=== PATIENT | female | born 1945 | race Caucasian/White ===

== ENCOUNTER 2023-03-26 11:39 | Inpatient (IN) | payer MEDICARE, OTHER, SELFPAY ==
[2023-03-26] VITALS (20 sets, daily range): BP systolic 78–133; BP diastolic 41–112; PULSE 60–99; RESP 15–18; TEMP 36.3–36.6; O2SAT 92–99; BMI 44.6; BMI 44.4; BMI 39.2
--- NOTE | 2023-03-26 11:55 | ED.RN ---
PATIENT WITH SLURRED SPEECH AND MILD APHASIA. PATIENT WITH HISTORY OF THIS DEFICIT FROM STROKE. PATIENTS LEFT EYE IS ALSO DROOPY, ABLE TO OPEN AND CLOSE IT. PATIENT STATES THAT HER EYE HAS BEEN LIKE THIS FOR 4-5 DAYS. PATIENT STATES SHE DOES NOT FEEL ANY DIFFERENT THEN NORMAL.
[2023-03-26 12:00] LABS: Bedside Glucose 65 mg/dL (74-106)
--- NOTE | 2023-03-26 12:20 | EDS_ITS ---
HPI History of Present Illness Chief Complaint: Neuro S/Sx [facility] Medical History (Updated 03/26/23 @ 12:39 by Stephanie Ham) Atrial fibrillation Depression Diabetes Dialysis patient GERD (gastroesophageal reflux disease) Kidney disease Stroke/cerebrovascular accident Allergy/AdvReac Type Severity Reaction Status Date / Time codeine Allergy Mild PT UNABLE Verified 03/26/23 11:47 TO RESPOND-NEEDS F/U hydrocodone Allergy Mild PT UNABLE Verified 03/26/23 11:47 TO RESPOND-NEEDS F/U tramadol Allergy Mild PT UNABLE Verified 03/26/23 11:47 TO RESPOND-NEEDS F/U Social History Smoking Status: Never smoker EXAM Physical Exam Const Vital Signs: 03/26/23 11:43 Temperature 97.4 F L Temperature Source Temporal Pulse Rate 94 Respiratory Rate 18 Blood Pressure 133/112 H Blood Pressure Mean 119 Pulse Ox 93 Oxygen Delivery Method Room Air MDM MDM MDM Narrative Medical decision making narrative: HISTORY OF PRESENT ILLNESS: 77-year-old female here with concern for left-sided eye closure, abnormal speech. Patient does not provide lab history given history of aphasia. Per the patient's dialysis center as patient was hemodialysis they noticed the symptoms. Unknown last known well. REVIEW OF SYSTEMS: Pertinent positives: Speech changes Pertinent negatives: Unknown secondary to patient's aphasia and difficulty with communication PHYSICAL EXAM: Nursing triage notes reviewed, Vital signs reviewed Constitutional: please see mdm HENT: MMM Eyes: Pupils equal round and reactive to light, Extraocular muscles intact Neck: No stridor, no JVD, full neck ROM Lungs: Diminished in left lower bazzi. No increased work of breathing, no conversational dyspnea, no accessory muscle use, no nasal flaring. No respiratory distress noted. Right chest dialysis catheter noted. Heart: No murmurs, No rubs and No gallops, 2+ distal pulses (radial, femoral, posterior tibial) in all extremities Abdomen: Soft, there is no tenderness, : No CVAT Extremities: LE edema noted Neuro: Alert, left-sided facial drooping, no obvious focal extremity deficits, intact sensation of the face in all 4 extremities, aphasia noted dysarthria noted NIH of 5 Skin: No rash or lesions noted MEDICAL DECISION MAKING: Chief Complaint: Neuro symptoms External records reviewed: Last echocardiogram with EF 55% Factors affecting care: CVA, type 2 diabetes, aphasia, CKD, ESRD, dialysis Saturday on Eliquis secondary to A-fib History obtained from others: EMS Consults: Internal Medicine ALL IMAGES (IF OBTAINED) HAVE BEEN PERSONALLY REVIEWED AND INTERPRETED BY MYSELF. Chest x-ray was personally reviewed myself. Shows evidence of left-sided infiltrate/effusion. [facility] Narrative: Patient was initially hemodynamically stable, afebrile and nontoxic-appearing. Exam with NIH of 5. Is unclear of the last known well in addition to the patient on . TNKase not indicated at this time. Given unknown last known well thrombectomy is not indicated at this time. Did obtain a CT scan of the patient's head as well as a CT of the head and neck in addition to this I obtained labs and EKG. CTA of the head and neck showed no acute abnormalities. Labs showed leukocytosis, baseline improved anemia, no severe electrolyte abnormalities, there is chronic kidney disease noticed improved from prior. [id number] glucose was low gave D50.Gave IV antibiotics to treat pneumonia. Patient is admitted to the floor in stable condition. I considered the following differential diagnosis: ICH, CVA, hypoglycemia, seizure Given concern for new symptoms NIH of 5 we will admit the patient to undergo confirmatory MRI. The patient and/or family, caregivers express understanding. The patient and/or family, caregivers agrees with the plan. Shared decision making: I will have a discussion with the patient and or visitors regarding risk/benefits of further testing or admission. They will be made aware of of the risk/benefits inherent in this decision they will be given the opportunity to voice understanding. Total critical care time today provided was at least 0 minutes. This excludes separately billable procedures. Critical care time (if documented) is secondary to the patient having high probability of clinically significant/life threatening deterioration in the patient's condition which required my urgent intervention. Impression: 1. Aphasia 2. History of ESRD 3. History of CVA 4. Left lower lobe pneumonia 5. Leukocytosis Dispo: [facility] Lab Data Labs: Laboratory Results - last 24 hr 03/26/23 11:43 POC Glucose 65 L Discharge Plan Triage Chief Complaint: Neuro S/Sx ED Provider: Vinay Keller Dx/Rx/DC Orders Primary Care Provider: Liudmila Kuhn Referrals: Liudmila Kuhn MD [Primary Care Provider] - Disposition Disposition: Acute Care Hospital [facility]
[2023-03-26] MEDS: Dextrose 50%-Water 25 GM/50 ML DISP.SYRIN IV (12:57)
--- NOTE | 2023-03-26 13:04 | EKG12_ITS ---
Test Reason : STROKE SYMP Blood Pressure : / mmHG Vent. Rate : 089 BPM Atrial Rate : 089 BPM P-R Int : 212 ms QRS Dur : 092 ms QT Int : 388 ms P-R-T Axes : 035 063 024 degrees QTc Int : 472 ms Sinus rhythm with 1st degree A-V block with Premature atrial complexes in a pattern of bigeminy Low voltage QRS Nonspecific T wave abnormality Prolonged QT Abnormal ECG Confirmed by TITI OSPINA, NGHIA ([id number]), editorial manager DEMARCO LOVE ([id number]) on 04/02/2023 10:09:42 AM Referred By: LA Confirmed By:ALICE WALLS MD
--- NOTE | 2023-03-26 13:05 | CT_ITS ---
STUDY: CTA HEAD AND NECK WITH CONTRAST REASON FOR EXAM: Female, 77 years old. Neuro deficit, acute, stroke suspected RADIATION DOSAGE (If Supplied By Facility): CTDIvol = ( 29.56 ) mGy, DLP = ( 2313.95 ) mGycm TECHNIQUE: CT angiography was performed with a multi-detector CT scanner. Data acquisition was obtained from the skull base through the vertex following intravenous administration of IV 100mL [id number]-[id number]. MIP images were reconstructed from the axial data set. Post-processing of the angiographic images was performed, with multiplanar reformation and 3D reconstruction. Individualized dose optimization techniques were used for this CT. COMPARISON: No relevant priors. FINDINGS: Normal bilateral petrous carotid arteries. There is calcified plaque formation of the right cavernous carotid artery, without a cross-sectional luminal stenosis. There is calcified plaque formation of the left cavernous carotid artery, without a cross-sectional luminal stenosis. Normal right A1 segments of the anterior cerebral artery. Normal left A1 segments of the anterior cerebral artery. Normal intact anterior communicating artery (ACOM). Normal bilateral A2 segments of the anterior cerebral arteries. Normal right M1 and M2 segments of the middle cerebral arteries, with a normal M1 bifurcation. Normal left M1 and M2 segments of the middle cerebral arteries, with a normal M1 bifurcation. 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 Normal left posterior communicating artery (PCOM). Normal bilateral vertebral arteries. Normal basilar artery with a normal basilar bifurcation. The visualized bilateral superior cerebellar (SCA) arteries are normal. Normal bilateral P1, P2 and visualized P3 segments of the posterior cerebral arteries. There is no demonstrated aneurysm of the [place]. Cerebral atrophy. AORTIC ARCH: There is atherosclerotic calcific plaque formation of the aortic arch and great vessels arising from the aortic arch, without a hemodynamically significant stenosis. There is a normal origin of the brachiocephalic, left common carotid, and left subclavian arteries. Atherosclerotic calcific plaques at the origin of the right brachiocephalic as well as the left subclavian arteries. RIGHT CAROTID ARTERIES: Normal right common carotid artery (CCA). Normal right common carotid bulb. Normal origin of the right internal carotid (ICA) artery without a hemodynamically significant stenosis. Normal visualized cervical portion of the right internal carotid artery. Normal origin of the right external carotid artery (ECA). LEFT CAROTID ARTERIES: Normal left common carotid artery (CCA). Normal left common carotid bulb. There is mild atherosclerotic plaque formation of the origin of the left internal carotid artery with less than 50% cross sectional diameter stenosis. Normal visualized cervical portion of the left internal carotid artery. Normal origin of the left external carotid artery (ECA). VERTEBRAL ARTERIES: There is enhancement within the bilateral vertebral arteries with a small right vertebral artery, and a dominant left vertebral artery. Small bilateral pleural effusions with atelectasis at the lung bases. CT/STROKE CTA Head AND Neck W/Con IMPRESSION: Mild degree of calcific plaques in the proximal portions of both right and left internal carotid arteries. This is slightly more prominent on the left side. N.B. : The above Results were Read Back by Baltazar Brito MD to Vinay Michaelrus and understanding confirmed on 03/26/2023 14:22:36 (ET). Electronically Signed: Baltazar Brito MD at 14:23 EDT ,
[2023-03-26 13:38] LABS: Absolute Lymphocyte Count 2.73 X10^3/uL (0.83-4.51); Basophil# 0.03 X10^3/uL; Basophil% 0.2 % (0-1); Eosinophil# 0.12 X10^3/uL; Eosinophils% 0.8 % (0-5); Hematocrit 27.4 % (37-47); Hemoglobin 8.4 g/dL (12.0-15.0); Lymphocyte # 2.73 X10^3/ul (0.83-4.51); Lymphocyte % 18.8 % (19-41); Mean Corp Hgb Conc 30.7 g/dL (32-36); Mean Corpuscular Hgb 30.9 pg (27.0-32.0); Mean Corpuscular Volume 100.7 fL (81-99); Mean Platelet Vol. 10.1 fl (6.2-12.0); Monocyte% 10.3 % (0-10); NRBC Flagged by Analyzer 0 % (0-5); Neutrophil # 10.03 X10^3/uL (2.7-7.7); Neutrophil % 69.2 % (47-70); Platelet Count 122 K/mm3 (150-450); RBC Distribution Width CV 15.7 % (11.6-14.6); RBC Distribution Width SD 57.4 fl (35.1-43.9); Red Blood Count 2.72 M/mm3 (4.2-5.4); White Blood Count 14.5 K/mm3 (4.4-11.0)
[2023-03-26 13:49] LABS: Anion Gap 13 (5-15); BUN 9 mg/dL (7-18); BUN/Creat Ratio 4.9 RATIO (10-20); Calcium,Total 8.5 mg/dL (8.5-10.1); Chloride 96 mmol/L (98-107); Creatinine, Serum 1.85 mg/dL (0.55-1.02); EST Glomerular Filtration Rate 28 mL/min (>60); Est Glom Filt Rate - Afr Amer 34 mL/min (>60); Estimated Creatinine Clearance 21.99 ml/min; Glucose 90 mg/dL (74-106); Potassium 3.6 mmol/L (3.5-5.1); Sodium Level 134 mmol/L (136-145); Troponin-I HS 8 pg/mL (3.0-54.0)
--- NOTE | 2023-03-26 13:57 | RAD_ITS ---
STUDY: X-RAY CHEST REASON FOR EXAM: Female, 77 years old. Neuro deficit, acute, stroke suspected TECHNIQUE: Single AP portable view of the chest. COMPARISON: None. FINDINGS: The right-sided double lumen catheter seen with the tip in the right atrium. EKG electrodes are seen. Small left pleural effusion with left basilar infiltrate and/or atelectasis. Normal size heart. Soft tissue density in the region of the aortopulmonary window. Correlation with a CT scan is recommended. Normal visualized pulmonary arteries. There is atherosclerotic calcification of the aortic arch with tortuosity. There are diffuse degenerative changes of the visualized thoracic spine. Normal visualized ribs, clavicles, and shoulders. There is no demonstrated abnormality of the visualized soft tissue structures of the upper abdomen. RAD/Chest 1 View IMPRESSION: Small left pleural effusion with a left basilar infiltrate and/or atelectasis. Soft tissue density in the region of the aortopulmonary window. Correlation with CT scan is recommended. Electronically Signed: Baltazar Brito MD at 14:25 EDT ,
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
[2023-03-26 15:04] LABS: Bedside Glucose 139 mg/dL (74-106)
[2023-03-26] MEDS: Ceftriaxone 1 GM/50 ML BAG IV (15:18)
[2023-03-26] MEDS: Azithromycin 500 MG in Dextrose 5%-Water (250mL Bag) 250 ML 250 MG IV (16:27)
[2023-03-26 17:54] LABS: Bedside Glucose 144 mg/dL (74-106)
--- NOTE | 2023-03-26 18:30 | ED.RN ---
PATIENT CHANGED AND REPOSITIONED. PATIENT WITH OPEN WOUND TO LEFT MID BACK IN SKIN FOLD AND OPEN AREA TO RIGHT BUTTOCK.
--- NOTE | 2023-03-26 19:40 | ECHOD_ITS ---
Reason For Study: TIA/CVA Procedure This was a 2D Doppler, Color Flow transthoracic echocardiogram. Technically difficult study due to patient position. Patient scanned sitting straight up. Definity and bubble deferred due to poor apical windows. Exam performed portable in patient room. Left Ventricle Normal LV size. The estimated ejection fraction is 70 %. Unable to assess diastolic dysfunction. No regional wall motion abnormalities noted. Right Ventricle Normal RV size. Normal systolic function. Atria Normal left atrium. Normal right atrium. No doppler evidence for ASD. Mitral Valve There is moderate to severe mitral annular calcification. There is no mitral valve stenosis. Trivial mitral valve insufficiency. Tricuspid Valve There is no tricuspid stenosis. Trivial tricuspid valve insufficiency. Unable to estimate RV systolic pressure due to insufficient tricuspid regurgitant envelope. Aortic Valve Trisinus/trileaflet aortic valve. There is no aortic stenosis. No aortic valve insufficiency. Pulmonic Valve There is no pulmonic valvular stenosis. No pulmonic valve insufficiency. Great Vessels Normal aortic root. Pericardium/Pleural No pericardial effusion. MMode/2D Measurements & Calculations Ao root diam: 3.2 cm LVAd ap4: 15.1 cm2 SV(MOD-sp4): 22.0 ml LVLd ap4: 5.8 cm EDV(MOD-sp4): 31.3 ml EDV(sp4-el): 33.2 ml LVAs ap4: 7.5 cm2 LVLs ap4: 5.0 cm ESV(MOD-sp4): 9.3 ml ESV(sp4-el): 9.6 ml EF(MOD-sp4): 70.4 % EF(sp4-el): 71.0 % SV(sp4-el): 23.6 ml LA dimension(2D): 2.5 cm TAPSE: 1.0 cm Time Measurements MV dec time: 0.09 sec Doppler Measurements & Calculations MV E max sarthak: 69.4 cm/sec Lat Peak E' Sarthak: 6.6 cm/sec Med Peak E' Sarthak: 9.0 cm/sec MV A max sarthak: 130.7 cm/sec E/E' lat: 10.5 E/E' med: 7.7 MV E/A: 0.53 MV V2 max: 131.6 cm/sec MV dec slope: 763.9 cm/sec2 Ao V2 max: 108.6 cm/sec MV max P.0 mmHg Ao max P.7 mmHg MV V2 mean: 68.0 cm/sec Ao V2 mean: 69.5 cm/sec MV mean P.5 mmHg Ao mean P.2 mmHg MV V2 VTI: 24.8 cm Ao V2 VTI: 19.8 cm AV (velocity ratio): 0.97 LV V1 max: 94.9 cm/sec PA V2 max: 112.1 cm/sec LV V1 max P.6 mmHg PA V2 mean: 54.1 cm/sec LV V1 mean P.2 mmHg LV V1 mean: 70.2 cm/sec LV V1 VTI: 19.3 cm ECHO/Echo Complete Interpretation Summary The estimated ejection fraction is 70 %. Unable to assess diastolic dysfunction. Trivial mitral valve insufficiency. Ordering Physician: Melissa Coffey Referring Physician: Liudmila Kuhn M.D. Performed By: Elen Munroe RCS
--- NOTE | 2023-03-26 19:40 | CDU_ITS ---
Reason For Study: CVA Rt. Velocities/BP Lt. Velocities/BP Prox CCA 71.1/14.5 cm/sec. Prox CCA 65.2/10.2 cm/sec. Mid CCA 73/16.3 cm/sec. Mid CCA 65.2/10.2 cm/sec. Dist CCA 54.1/13.5 cm/sec. Dist CCA 63/11.3 cm/sec. Prox ICA 50.4/12.6 cm/sec. Prox ICA 42.5/8.9 cm/sec. Mid ICA 80.9/27.8 cm/sec. Mid ICA 79.7/22.2 cm/sec. Dist ICA 101.7/25 cm/sec. Dist ICA 77.8/18.8 cm/sec. Rt. ICA/CCA = 1.43. Lt. ICA/CCA = 1.22. Prox ECA 54.4/1.8 cm/sec. Prox ECA 64.1/6.9 cm/sec. Rt. Vert. 48.9/10.2 cm/sec. Lt. Vert. 73.6/13.3 cm/sec. Right Extracranial There is intimal thickening but no significant atherosclerotic plaque noted in the right common carotid artery. There is intimal thickening but no significant atherosclerotic plaque noted in the right internal carotid artery. The right internal carotid artery is very tortuous. There is intimal thickening but no significant atherosclerotic plaque noted in the right external carotid artery. The right external carotid artery is not well visualized. Antegrade flow is noted in the right vertebral artery. Left Extracranial There is homogeneous, smooth atherosclerotic plaque noted in the left common carotid artery. There is heterogeneous, irregular atherosclerotic plaque noted in the left internal carotid artery. There is intimal thickening but no significant atherosclerotic plaque noted in the left external carotid artery. The left external carotid artery is not well visualized. Antegrade flow is noted in the left vertebral artery. Procedure Carotid Duplex [id number]. This is a Carotid Duplex examination using B-mode, color flow and specral Doppler. Exam performed in department. VL/Carotid Duplex Ultrasound Interpretation Summary Normal right extracranial internal carotid. Mild (<50%) stenosis left extracranial internal carotid. Patent and antegrade vertebrals bilaterally. Ordering Physician: Melissa Coffey Referring Physician: Liudmila Kuhn M.D. Performed By: Nena Julian RVT
[2023-03-26 20:25] LABS: Magnesium 2.1 mg/dL (1.6-2.6)
[2023-03-26] MEDS: Gabapentin 100 MG Capsule 200 MG PO (21:38)
[2023-03-26] MEDS: MELATONIN 3 MG TABLET 9 MG PO (21:38)
[2023-03-26] MEDS: Midodrine HCl 5 MG Tablet 10 MG PO (21:38)
[2023-03-26] MEDS: Atorvastatin Calcium 40 MG Tablet PO (21:38)
[2023-03-26] MEDS: APIXABAN 5 MG TABLET PO (21:38)
[2023-03-26] MEDS: Menthol/Lanolin/Calamine/Znox 113 GM Tube 1 APPLIC TOPICAL (21:39)
[2023-03-26] MEDS: Acetaminophen 325 MG Tablet 650 MG PO (21:47)
[2023-03-26 22:15] LABS: Bedside Glucose 143 mg/dL (74-106)
[2023-03-27] VITALS (7 sets, daily range): BP systolic 90–118; BP diastolic 51–78; PULSE 80–87; RESP 16–18; TEMP 36.3–36.6; O2SAT 2–98; BMI 39.2; BMI 39.1
--- NOTE | 2023-03-27 02:36 | NURSING ---
only has voided 25ml this shift, bladder scanned for 200ml.
[2023-03-27 02:38] LABS: Bedside Glucose 138 mg/dL (74-106)
--- NOTE | 2023-03-27 05:55 | RAD_ITS ---
INDICATION: Dyspnea, cough EXAMINATION/TECHNIQUE: X-RAY - XR Chest 1 View COMPARISON: March 26, 2023. FINDINGS: LINES/DEVICES: Unchanged dual-lumen right internal jugular catheter.. LUNGS: Small layering left effusion, decreased from prior exam. No right effusion. No new consolidation. No pneumothorax. MEDIASTINUM AND CARDIOVASCULAR STRUCTURES: Cardiac silhouette not enlarged. BONES AND SOFT TISSUES: Unremarkable. RAD/Chest 1 View (Portable) IMPRESSION: Small layering left effusion which is decreased from prior exam. Electronically Signed: Prosper Ren MD at 4:28 EDT ,
--- NOTE | 2023-03-27 06:00 | MRI_ITS ---
EXAM: MR HEAD WITHOUT INTRAVENOUS CONTRAST CLINICAL INDICATION: CVA, L FACIAL DROOP TECHNIQUE: Multiplanar and multisequence MR images of the brain were obtained without intravenous contrast. COMPARISON: CTA head and neck with contrast 03/26/2023. FINDINGS: BRAIN AND EXTRA-AXIAL SPACES: The cluster of 3 small diffusion restrictions in the left mid periventricular white matter and in the subcortical white matter of the left central lobe are also visible on the T2 FLAIR sequence. They are subacute ischemic infarcts. No intra- or extra-axial hemorrhage. No intracranial mass or mass effect. Posterior fossa structures are unremarkable. No hydrocephalus. Basal cisterns are patent. SELLA: Unremarkable. Normal sella turcica, pituitary gland, infundibular stalk, optic chiasm and hypothalamus. AUDITORY SYSTEM: Unremarkable. The internal auditory canals are patent. BONES/JOINTS: Unremarkable. No discrete lytic or blastic abnormalities. SINUSES: Unremarkable as visualized. Clear. MASTOID AIR CELLS: Unremarkable as visualized. Clear. ORBITS: Unremarkable as visualized. Both globes, extraocular muscles, optic nerves and retrobulbar fat appear unremarkable. VASCULATURE: Unremarkable as visualized. Normal flow voids in the major intracranial circulation. MRI/Brain without Contrast IMPRESSION: A cluster of 3 subacute lacunar ischemic infarcts in the left periventricular white matter and in the subcortical white matter of the left central lobe. These are suspicious for microembolic infarcts that are probably cardioembolic in source/origin due to the negative CTA head and neck. N.B. : The above Results were Read Back by Yash Brewer MD to Yash Barahona RN, and understanding confirmed on 03/27/2023 10:20:53 (ET). Electronically Signed: Yash Brewer MD at 10:06 EDT ,
[2023-03-27] MEDS: Miconazole Nitrate 43 GM Bottle 1 APPLIC TOPICAL ×3 (06:17→22:48)
--- NOTE | 2023-03-27 06:19 | NURSING ---
bladder scanned for 250ml
[2023-03-27 06:25] LABS: Bedside Glucose 115 mg/dL (74-106)
[2023-03-27 06:52] LABS: Absolute Lymphocyte Count 2.54 X10^3/uL (0.83-4.51); Basophil# 0.05 X10^3/uL; Basophil% 0.4 % (0-1); Eosinophils% 1.7 % (0-5); Hematocrit 25.8 % (37-47); Lymphocyte # 2.54 X10^3/ul (0.83-4.51); Lymphocyte % 21.4 % (19-41); Mean Corpuscular Hgb 30.8 pg (27.0-32.0); Mean Corpuscular Volume 99.2 fL (81-99); Mean Platelet Vol. 9.6 fl (6.2-12.0); Monocyte# 1.01 X10^3/uL; Monocyte% 8.5 % (0-10); NRBC Flagged by Analyzer 0 % (0-5); Neutrophil # 7.95 X10^3/uL (2.7-7.7); Neutrophil % 66.9 % (47-70); Platelet Count 113 K/mm3 (150-450); RBC Distribution Width CV 15.3 % (11.6-14.6); RBC Distribution Width SD 54.8 fl (35.1-43.9); White Blood Count 11.9 K/mm3 (4.4-11.0)
[2023-03-27 07:42] LABS: ALB/GLOB Ratio 0.3 RATIO (0.9-2.4); AST(SGOT) 19 U/L (15-37); Alanine Aminotransfer ALT/SGPT 18 U/L (13-56); Albumin, Serum 1.2 g/dL (3.2-5.0); Alkaline Phosphatase 184 U/L (45-117); Anion Gap 5 (5-15); BUN 12 mg/dL (7-18); BUN/Creat Ratio 5.7 RATIO (10-20); Chloride 96 mmol/L (98-107); Cholesterol 83 mg/dL (200); Creatinine, Serum 2.09 mg/dL (0.55-1.02); EST Glomerular Filtration Rate 24 mL/min (>60); Est Glom Filt Rate - Afr Amer 30 mL/min (>60); Estimated Creatinine Clearance 17.83 ml/min; Globulin 3.8 g/dL (2.2-4.2); Glucose 120 mg/dL (74-106); High Density Lipoprotein 12 mg/dL; Potassium 3.2 mmol/L (3.5-5.1); Sodium Level 133 mmol/L (136-145); Thyroid Stim Hormone (TSH) 2.13 uIU/mL (0.358-3.74); Triglycerides 125 mg/dL; Very Low Density Lipoprotein 25 mg/dL (5-40)
--- NOTE | 2023-03-27 08:34 | PCM.PN.HOSP ---
Reason for Visit Reason for Visit: Diagnoses Cerebral infarction, unspecified (03/26/23) Subjective Subjective Patient is a 77-year-old gentleman with history of end-stage renal disease on dialysis was found to have slurred speech and left-sided facial droop was undergoing dialysis was sent to the ED admitted to monitored bed for subsequent management Objective Data Objective Data Vital Signs: Vital Signs Temp Pulse Resp BP Pulse Ox O2 Del Method O2 Flow Rate 97.8 F 80 18 118/57 L 92 Room Air 1 03/27/23 06:00 03/27/23 06:00 03/27/23 06:00 03/27/23 06:00 03/27/23 07:32 03/27/23 07:32 03/26/23 13:45 Oxygen Flow Rate (L/min) 1 Oxygen Delivery Method Room Air Weight: 97 kg Body Mass Index (BMI) 39.1 Intake & Output: Intake and Output for Last 24 Hours 03/25/23 03/26/23 03/27/23 23:59 23:59 23:59 Intake Total 305 / 305 Output Total 0 / 0 0 / 0 Balance 305 / 305 0 / 0 Lab / Micro Data 03/27/23 05:47 03/27/23 05:47 Labs: Laboratory Results - last 24 hr 03/26/23 11:43: POC Glucose 65 L 03/26/23 12:03: WBC 14.5 H, RBC 2.72 L, Hgb 8.4 L, Hct 27.4 L, MCV 100.7 H, MCH 30.9, MCHC 30.7 L, RDW Std Deviation 57.4 H, RDW Coeff of Nathaniel 15.7 H, Plt Count 122 L, MPV 10.1, Immature Gran % (Auto) 0.700, Neut % (Auto) 69.2, Lymph % (Auto) 18.8 L, Campbell % (Auto) 10.3 H, Eos % (Auto) 0.8, Baso % (Auto) 0.2, Absolute Neuts (auto) 10.0 H, Absolute Lymphs (auto) 2.73, Nucleated RBC % 0, PT Cancelled, INR Cancelled, APTT Cancelled, Sodium 134 L, Potassium 3.6, Chloride 96 L, Carbon Dioxide 25.0, Anion Gap 13, BUN 9, Creatinine 1.85 H, Estim Creat Clear Calc 21.99, Est GFR (MDRD) Af Amer 34 L, Est GFR (MDRD) Non-Af 28 L, BUN/Creatinine Ratio 4.9 L, Glucose 90, Calcium 8.5, Magnesium 2.1, Troponin I High Sens 8 03/26/23 14:33: POC Glucose 139 H 03/26/23 17:36: POC Glucose 144 H 03/26/23 21:36: POC Glucose 143 H 03/27/23 02:12: POC Glucose 138 H 03/27/23 05:47: WBC 11.9 H, RBC 2.60 L, Hgb 8.0 L, Hct 25.8 L, MCV 99.2 H, MCH 30.8, MCHC 31.0 L, RDW Std Deviation 54.8 H, RDW Coeff of Nathaniel 15.3 H, Plt Count 113 L, MPV 9.6, Immature Gran % (Auto) 1.100 H, Neut % (Auto) 66.9, Lymph % (Auto) 21.4, Campbell % (Auto) 8.5, Eos % (Auto) 1.7, Baso % (Auto) 0.4, Absolute Neuts (auto) 8.0 H, Absolute Lymphs (auto) 2.54, Nucleated RBC % 0, Sodium 133 L, Potassium 3.2 L, Chloride 96 L, Carbon Dioxide 32.0, Anion Gap 5, BUN 12, Creatinine 2.09 H, Estim Creat Clear Calc 17.83, Est GFR (MDRD) Af Amer 30 L, Est GFR (MDRD) Non-Af 24 L, BUN/Creatinine Ratio 5.7 L, Glucose 120 H, Calcium 8.0 L, Total Bilirubin 0.30, AST 19, ALT 18, Alkaline Phosphatase 184 H, Total Protein 5.0 L, Albumin 1.2 L, Globulin 3.8, Albumin/Globulin Ratio 0.3 L, Triglycerides 125, Cholesterol 83, LDL Cholesterol 46, VLDL Cholesterol 25, HDL Cholesterol 12 L, TSH 2.13 03/27/23 06:07: POC Glucose 115 H Radiography Diagnostic Testing: Radiology Impression Head/Neck CTA 03/26/23 13:05 IMPRESSION: Mild degree of calcific plaques in the proximal portions of both right and left internal carotid arteries. This is slightly more prominent on the left side. N.B. : The above Results were Read Back by Baltazar Brito MD to Vinay Keller and understanding confirmed on 03/26/2023 14:22:36 (ET). Electronically Signed: Baltazar Brito MD at 14:23 EDT , ADDENDUM: 03/26/23 1430 IMPRESSION: Mild degree of calcific plaques in the proximal portions of both right and left internal carotid arteries. This is slightly more prominent on the left side. N.B. : The above Results were Read Back by Baltazar Brito MD to Vinay Keller and understanding confirmed on 03/26/2023 14:22:36 (ET). Electronically Signed: Baltazar Brito MD at 14:23 EDT , Chest X-Ray 03/26/23 13:57 IMPRESSION: Small left pleural effusion with a left basilar infiltrate and/or atelectasis. Soft tissue density in the region of the aortopulmonary window. Correlation with CT scan is recommended. Electronically Signed: Baltazar Brito MD at 14:25 EDT , Chest X-Ray 03/27/23 05:55 IMPRESSION: Small layering left effusion which is decreased from prior exam. Electronically Signed: Prosper Ren MD at 4:28 EDT , Physical Exam Narrative GENERAL: cooperative HEENT: Atraumatic; normocephalic EYES; Anicteric, Normal Conjunctiva NECK; supple, normal thyroid, RESPIRATORY: Diminished to auscultation CARDIOVASCULAR: Regular S1 S2, GI: soft, normoactive bowel sounds, : No Renal angle tenderness; EXTREMITIES: No edema, no clubbing, MUSCULOSKELETAL: no muscle wasting NEURO: Awake; no lateralizing signs. SKIN: No Rash PSYCH; Flat affect Assessment & Plan Assessment/Plan (1) CVA (cerebral vascular accident): QUALIFIERS: CVA mechanism: embolism Precerebral and cerebral artery: unspecified precerebral artery Qualified Code(s): I63.10 - Cerebral infarction due to embolism of unspecified precerebral artery PLAN: Plan Patient is a 77-year-old gentleman with history of end-stage renal disease on dialysis was found to have slurred speech and left-sided facial droop was undergoing dialysis was sent to the ED admitted to monitored bed for subsequent management 1. Suspected CVA ? Patient presented with left-sided facial droop, dysarthria. Admitted to monitored bed stroke protocol initiated patient to undergo subsequent evaluation with MRI. Patient's MRI did demonstrate A cluster of 3 subacute lacunar ischemic infarcts in the left periventricular white matter and in the subcortical white matter of the left central lobe. These are suspicious for microembolic infarcts that are probably cardioembolic in source/origin due to the negative CTA head and neck.. Patient placed on dual antiplatelet therapy in addition to statin therapy with consultation placed to neurology 2. End-stage renal disease ? On hemodialysis, nephrology consulted for dialysis orders 3. Diabetes mellitus type II - Placed on long acting insulin, Accu-Cheks a.c. and at bedtime and covered with sliding scale insulin 4. Paroxysmal atrial fibrillation ? Probably accounting for patient's acute CVA rate controlled patient is on systemic anticoagulation with apixaban continued 5. Depression with anxiety ? Patient is on sertraline continue 6. Hypertension - Blood pressure controlled, home medications continued with dose adjustment as needed 7. GERD ? On PPI 9. Dyslipidemia -Patient is on statin therapy, continued at home dose 10. Class II obesity with BMI of 39 ? Complicating care weight loss advised 11. DVT prophylaxis ? On apixaban Time spent in the patient's overall evaluation,decision-making process, review of diagnostic data, adjustment of management, discussion with other providers, nursing nursing and ancillary staff involved in patient's care documentation, 50 Minutes Charges/Coding Visit Charges Inpatient E&M: [address] [place] [id number]
[2023-03-27 08:55] LABS: Procalcitonin 0.45 ng/mL (0.00-0.09)
[2023-03-27 09:32] LABS: Hemoglobin A1c 4.9 % (3.8-5.6)
[2023-03-27] MEDS: Sertraline 50 MG Tablet 25 MG PO (10:19)
[2023-03-27] MEDS: Midodrine HCl 5 MG Tablet 10 MG PO ×4 (10:20→22:50)
[2023-03-27] MEDS: APIXABAN 5 MG TABLET PO ×2 (10:20→22:48)
[2023-03-27] MEDS: Pantoprazole Sodium 40 MG Tablet PO (10:20)
[2023-03-27] MEDS: Docusate Sodium 100 MG Capsule PO ×2 (10:20→22:48)
[2023-03-27] MEDS: Aspirin E.C. 81 MG Tablet PO (10:20)
[2023-03-27] MEDS: Menthol/Lanolin/Calamine/Znox 113 GM Tube 1 APPLIC TOPICAL ×4 (10:24→22:48)
[2023-03-27] MEDS: Ceftriaxone 1 GM/50 ML BAG IV (10:37)
--- NOTE | 2023-03-27 11:27 | PCM.CONS.R ---
Assessment & Plan Assessment/Plan (1) ESRD (end stage renal disease) on dialysis: (2) Anemia in chronic kidney disease: PLAN: Plan This is a pleasant 77-year-old female with past medical history significant for diabetes mellitus type 2, A-fib, past history of CVA with aphasia, coronary artery disease status post stent, ESRD on hemodialysis who was brought to the emergency room for evaluation of left-sided facial droop and mild to moderate aphasia concerning for CVA. Work-up in the emergency room included CTA head/neck: no acute findings, mild degree calcific plaques right and left internal carotid arteries. Chest x-ray questionable for possible left lower lobe pneumonia and also pleural effusions. Patient was admitted for further evaluation and treatment. Nephrology consulted as patient has history of end-stage renal disease and is on chronic hemodialysis. Patient receives dialysis at [facility] on a Saturday, Saturday, , Saturday schedule. Patient did undergo full hemodialysis session on Saturday and partial treatment of around 2 hours yesterday. There is no acute indication for NEPHROLOGY NURSE today; volume status, potassium and acid-base acceptable. We will evaluate for dialysis needs tomorrow. Patient has history of anemia of chronic disease, will monitor hemoglobin trends. Patient does receive NATALI and iron at dialysis. Blood pressures are on low side but acceptable, continue on midodrine. Patient is on azithromycin for probable pneumonia. Further orders forthcoming as hospitalization evolves, thank you for allowing us to participate in the care of Ms. Ordonez. HPI Consult Data Date of Consult: 03/27/23 HPI Narrative HPI Narrative: APRIL ORDONEZ, is a 77 F with past medical history significant for atrial fibrillation, diabetes mellitus type 2, hypertension, AAA, CVA with right-sided weakness, coronary artery disease s/p PCI with stent on ASA and plavix, end-stage renal disease on hemodialysis who was brought to the emergency room from [facility] yesterday for evaluation of left-sided facial droop. Patient was admitted for further evaluation and treatment. Nephrology consulted for hemodialysis needs. Patient is alert and oriented. She does have some aphasia. She is able to follow commands. No complaints currently. Patient did [facility] full [facility] and partial treatment of around 2 hours yesterday. [facility] Medical History (Updated 03/27/23 @ 11:32 by CHINA Aragon) AAA (abdominal aortic aneurysm) Anxiety and depression Aphasia as late effect of cerebrovascular accident Atrial fibrillation Diabetes ESRD (end stage renal disease) on dialysis GERD (gastroesophageal reflux disease) History of CVA (cerebrovascular accident) Obesity Home Medications apixaban 5 mg tablet (Eliquis) 5 mg PO BID afib 03/26/23 [History Last Taken Unknown] aspirin 81 mg tablet,delayed release (Adult Low Dose Aspirin) 81 mg PO DAILY heart health 03/26/23 [History Last Taken Unknown] atorvastatin 40 mg tablet 40 mg PO QHS cholesterol 03/26/23 [History Last Taken Unknown] cyclobenzaprine 5 mg tablet 5 mg PO BID PRN muscle spasms 03/26/23 [History Last Taken Unknown] docusate sodium 100 mg capsule (Colace) 100 mg PO BID constipation 03/26/23 [History Last Taken Unknown] gabapentin 100 mg capsule 200 mg PO QHS neuropathy 03/26/23 [History Last Taken Unknown] insulin glargine 100 unit/mL (3 mL) subcutaneous pen (Lantus Solostar U-100 Insulin) 10 unit subcut QHS diabetes 03/26/23 [History Last Taken Unknown] magnesium hydroxide 400 mg/5 mL oral suspension (Milk of Magnesia) 15 ml PO QHS constipation 03/26/23 [History Last Taken Unknown] melatonin 3 mg tablet 9 mg PO QHS insomnia 03/26/23 [History Last Taken Unknown] metoclopramide HCl 5 mg tablet 5 mg PO Q8H PRN nausea/vomiting 03/26/23 [History Last Taken Unknown] metoprolol tartrate 25 mg tablet 12.5 mg PO Q12H blood pressure 03/26/23 [History Last Taken Unknown] midodrine 10 mg tablet 10 mg PO 4X/DAY blood pressure 03/26/23 [History Last Taken Unknown] midodrine 10 mg tablet 10 mg PO DAILY PRN hypotension during dialysis 03/26/23 [History Last Taken Unknown] nitroglycerin 0.4 mg sublingual tablet 0.4 mg sublingual Q5M PRN chest pain 03/26/23 [History Last Taken Unknown] pantoprazole 40 mg tablet,delayed release 40 mg PO DAILY acid reflux 03/26/23 [History Last Taken Unknown] sertraline 25 mg tablet 25 mg PO DAILY depression 03/26/23 [History Last Taken Unknown] vitamin B complex-folic acid 50 mcg tablet 1 tab PO DAILY supplement 03/26/23 [History Last Taken Unknown] Allergy/AdvReac Type Severity Reaction Status Date / Time codeine Allergy Mild PT UNABLE Verified 03/26/23 11:47 TO RESPOND-NEEDS F/U hydrocodone Allergy Mild PT UNABLE Verified 03/26/23 11:47 TO RESPOND-NEEDS F/U tramadol Allergy Mild PT UNABLE Verified 03/26/23 11:47 TO RESPOND-NEEDS F/U Family History (Updated 03/26/23 @ 20:[address] Melissa Coffey MD) Mother Cancer Hypertension Father History of GI bleed Surgical History (Updated 03/26/23 @ 20:[address] Melissa Coffey MD) History of bilateral knee replacement History of foot surgery History of tonsillectomy and adenoidectomy Hx of appendectomy Status post left breast lumpectomy Social History (Updated 03/26/23 @ 20:[address] Melissa Coffey MD) household members: none housing: [facility] Smoking Status: Former smoker alcohol intake: never substance use type: does not use Physical Exam Narrative Alert and oriented x3, no apparent distress, expressive aphasia S1, S2, RRR Lung sounds clear anteriorly, no wheezes rhonchi or rales noted Abdomen soft, rounded, positive bowel sounds Bilateral legs with Scotty wraps intact. Edema noted to bilateral lower legs. No edema to bilateral thighs Tunneled HD catheter right chest dressing clean, dry and intact Lab / Micro Data 03/27/23 05:47 03/27/23 05:47 Labs: Laboratory Results - last 24 hr 03/26/23 11:43: POC Glucose 65 L 03/26/23 12:03: WBC 14.5 H, RBC 2.72 L, Hgb 8.4 L, Hct 27.4 L, MCV 100.7 H, MCH 30.9, MCHC 30.7 L, RDW Std Deviation 57.4 H, RDW Coeff of Nathaniel 15.7 H, Plt Count 122 L, MPV 10.1, Immature Gran % (Auto) 0.700, Neut % (Auto) 69.2, Lymph % (Auto) 18.8 L, Caroline % (Auto) 10.3 H, Eos % (Auto) 0.8, Baso % (Auto) 0.2, Absolute Neuts (auto) 10.0 H, Absolute Lymphs (auto) 2.73, Nucleated RBC % 0, PT Cancelled, INR Cancelled, APTT Cancelled, Sodium 134 L, Potassium 3.6, Chloride 96 L, Carbon Dioxide 25.0, Anion Gap 13, BUN 9, Creatinine 1.85 H, Estim Creat Clear Calc 21.99, Est GFR (MDRD) Af Amer 34 L, Est GFR (MDRD) Non-Af 28 L, BUN/Creatinine Ratio 4.9 L, Glucose 90, Calcium 8.5, Magnesium 2.1, Troponin I High Sens 8 03/26/23 14:33: POC Glucose 139 H 03/26/23 17:36: POC Glucose 144 H 03/26/23 21:36: POC Glucose 143 H 03/27/23 02:12: POC Glucose 138 H 03/27/23 05:47: WBC 11.9 H, RBC 2.60 L, Hgb 8.0 L, Hct 25.8 L, MCV 99.2 H, MCH 30.8, MCHC 31.0 L, RDW Std Deviation 54.8 H, RDW Coeff of Nathaniel 15.3 H, Plt Count 113 L, MPV 9.6, Immature Gran % (Auto) 1.100 H, Neut % (Auto) 66.9, Lymph % (Auto) 21.4, Caroline % (Auto) 8.5, Eos % (Auto) 1.7, Baso % (Auto) 0.4, Absolute Neuts (auto) 8.0 H, Absolute Lymphs (auto) 2.54, Nucleated RBC % 0, Sodium 133 L, Potassium 3.2 L, Chloride 96 L, Carbon Dioxide 32.0, Anion Gap 5, BUN 12, Creatinine 2.09 H, Estim Creat Clear Calc 17.83, Est GFR (MDRD) Af Amer 30 L, Est GFR (MDRD) Non-Af 24 L, BUN/Creatinine Ratio 5.7 L, Glucose 120 H, Hemoglobin A1c 4.9, Calcium 8.0 L, Total Bilirubin 0.30, AST 19, ALT 18, Alkaline Phosphatase 184 H, Total Protein 5.0 L, Albumin 1.2 L, Globulin 3.8, Albumin/Globulin Ratio 0.3 L, Triglycerides 125, Cholesterol 83, LDL Cholesterol 46, VLDL Cholesterol 25, HDL Cholesterol 12 L, Procalcitonin 0.45 H, TSH 2.13 09/20/23 06:07: POC Glucose 115 H Radiology Impression Head/Neck CTA 03/26/23 13:05 IMPRESSION: Mild degree of calcific plaques in the proximal portions of both right and left internal carotid arteries. This is slightly more prominent on the left side. N.B. : The above Results were Read Back by Baltazar Brito MD to Vinay Keller and understanding confirmed on 03/26/2023 14:22:36 (ET). Electronically Signed: Baltazar Brito MD at 14:23 EDT , ADDENDUM: 03/26/23 1430 IMPRESSION: Mild degree of calcific plaques in the proximal portions of both right and left internal carotid arteries. This is slightly more prominent on the left side. N.B. : The above Results were Read Back by Baltazar Brito MD to Vinay Keller and understanding confirmed on 03/26/2023 14:22:36 (ET). Electronically Signed: Baltazar Brito MD at 14:23 EDT , Chest X-Ray 03/26/23 13:57 IMPRESSION: Small left pleural effusion with a left basilar infiltrate and/or atelectasis. Soft tissue density in the region of the aortopulmonary window. Correlation with CT scan is recommended. Electronically Signed: Baltazar Brito MD at 14:25 EDT , Chest X-Ray 03/27/23 05:55 IMPRESSION: Small layering left effusion which is decreased from prior exam. Electronically Signed: Prosper Ren MD at 4:28 EDT , Brain MRI 03/27/23 06:00 IMPRESSION: A cluster of 3 subacute lacunar ischemic infarcts in the left periventricular white matter and in the subcortical white matter of the left central lobe. These are suspicious for microembolic infarcts that are probably cardioembolic in source/origin due to the negative CTA head and neck. N.B. : The above Results were Read Back by Yash Brewer MD to Yash Barahona RN, and understanding confirmed on 03/27/2023 10:20:53 (ET). Electronically Signed: Yash Brewer MD at 10:06 EDT ,
[2023-03-27] MEDS: Azithromycin 500 MG in Dextrose 5%-Water (250mL Bag) 250 ML 250 MG IV (11:57)
[2023-03-27 12:21] LABS: Bedside Glucose 122 mg/dL (74-106)
--- NOTE | 2023-03-27 12:56 | CHAPLAIN ---
Type of Pastoral Visit _x__ Initial Visit ___ Follow-up Visit ___ On-call Visit ___ General Patient Visit ___ Spiritual Assessment ___ Family Conference ___ Bereavement ___ Rapid Response ___ Code Blue ___ Other (describe below) Pastoral Care Referral From _x__ Patient ___ Family ___ Nurse ___ Physician ___ Mandarin Tutor ___ Premium Cancellation Clerk ___ Other (describe below) Sacrament/Intervention _x__ Active listening ___ Anointing ___ Muslim ___ Bereavement ___ Communion ___ [place] ___ ___ Life review _x__ Prayer ___ Reconciliation ___ Sacrament of Sick ___ Supportive presence ___ Wedding ___ Other (describe below) Pastoral Comments patient is resting but was awakened at her name; pt has some difficulty speaking clearly but indicates welcome to this forensic technician and desire for a prayer; offer of prayer along with patience to understand what she is saying; pt then had wound nurse and PT waiting for time with her so visit ended
--- NOTE | 2023-03-27 13:26 | WOUNDNOTE ---
wound photo: under left breast skin fold
--- NOTE | 2023-03-27 13:27 | WOUNDNOTE ---
wound photo: buttock/ cleft
--- NOTE | 2023-03-27 13:28 | WOUNDNOTE ---
wound photo: left back skin fold
[2023-03-27 17:22] LABS: Bedside Glucose 135 mg/dL (74-106)
--- NOTE | 2023-03-27 20:52 | PCM.HOSP.N ---
Hospitalist Note Received phone call from teleneurology this evening. Noted that patient had 3 subacute lacunar ischemic infarcts in the left lobe of the brain suspicious for microembolic infarcts from probable cardioembolic source. Patient was on Eliquis and aspirin prior to admission, Plavix was added on admit. Teleneurology recommended discontinuing aspirin, continuing Eliquis and Plavix. Also recommended increasing to atorvastatin 80 mg daily. Made both of these changes as recommended.
[2023-03-27] MEDS: MELATONIN 3 MG TABLET 9 MG PO (22:49)
[2023-03-27] MEDS: Acetaminophen 325 MG Tablet 650 MG PO (22:50)
[2023-03-27] MEDS: Gabapentin 100 MG Capsule 200 MG PO (22:50)
[2023-03-27] MEDS: Magnesium Hydroxide 30 ML UDC 15 ML PO (22:50)
[2023-03-27] MEDS: Atorvastatin Calcium 80 MG Tablet PO (22:52)
[2023-03-27 23:20] LABS: Bedside Glucose 110 mg/dL (74-106)
[2023-03-28] VITALS (17 sets, daily range): BP systolic 84–186; BP diastolic 50–126; PULSE 79–98; RESP 14–16; TEMP 36.3–36.6; O2SAT 93–100; BMI 39.1; BMI 46.4; BMI 45.9
[2023-03-28] MEDS: Miconazole Nitrate 43 GM Bottle 1 APPLIC TOPICAL ×2 (05:06→23:18)
[2023-03-28 06:25] LABS: Absolute Lymphocyte Count 2.38 X10^3/uL (0.83-4.51); Absolute Neutrophil Count 6.6 X10^3/uL (2.0-7.7); Basophil# 0.03 X10^3/uL; Basophil% 0.3 % (0-1); Eosinophil# 0.17 X10^3/uL; Eosinophils% 1.7 % (0-5); Hematocrit 25.1 % (37-47); Hemoglobin 7.9 g/dL (12.0-15.0); Lymphocyte # 2.38 X10^3/ul (0.83-4.51); Lymphocyte % 23.4 % (19-41); Mean Corp Hgb Conc 31.5 g/dL (32-36); Mean Corpuscular Volume 98.4 fL (81-99); Mean Platelet Vol. 9.5 fl (6.2-12.0); Monocyte# 0.93 X10^3/uL; Monocyte% 9.1 % (0-10); NRBC Flagged by Analyzer 0 % (0-5); Neutrophil # 6.58 X10^3/uL (2.7-7.7); Neutrophil % 64.6 % (47-70); Platelet Count 124 K/mm3 (150-450); RBC Distribution Width CV 15.6 % (11.6-14.6); RBC Distribution Width SD 55.7 fl (35.1-43.9); Red Blood Count 2.55 M/mm3 (4.2-5.4); White Blood Count 10.2 K/mm3 (4.4-11.0)
[2023-03-28 07:13] LABS: Anion Gap 5 (5-15); BUN 16 mg/dL (7-18); Chloride 96 mmol/L (98-107); Creatinine, Serum 2.65 mg/dL (0.55-1.02); EST Glomerular Filtration Rate 19 mL/min (>60); Est Glom Filt Rate - Afr Amer 22 mL/min (>60); Estimated Creatinine Clearance 14.06 ml/min; Glucose 104 mg/dL (74-106); Potassium 3.3 mmol/L (3.5-5.1); Sodium Level 133 mmol/L (136-145)
[2023-03-28 07:28] LABS: Bedside Glucose 95 mg/dL (74-106)
--- NOTE | 2023-03-28 08:03 | PN.HOSP_ITS ---
Reason for Visit Reason for Visit: Diagnoses Cerebral infarction due to embolism of unspecified precerebral artery (03/26/23) Cerebral infarction, unspecified (03/26/23) Subjective Subjective ? 03/28/2023 patient was seen in consultation by teleneuro recommended against addition of Plavix which has subsequently been discontinued. The patient was observed by nursing staff to be experiencing choking sensation speech therapy subsequently consulted Objective Data Objective Data Vital Signs: Vital Signs Temp Pulse Resp BP Pulse Ox O2 Del Method O2 Flow Rate 97.3 F L 79 16 100/89 H 93 Nasal Cannula 2 03/28/23 06:00 03/28/23 06:00 03/28/23 06:00 03/28/23 06:00 03/28/23 06:00 03/28/23 06:00 03/28/23 06:00 Oxygen Flow Rate (L/min) 2 Oxygen Delivery Method Nasal Cannula Weight: 115.2 kg Body Mass Index (BMI) 46.4 Intake & Output: Intake and Output for Last 24 Hours 03/26/23 03/27/23 03/28/23 23:59 23:59 23:59 Intake Total 305 / 305 665 / 665 Output Total 0 / 0 0 / 0 0 / 0 Balance 305 / 305 665 / 665 0 / 0 Lab / Micro Data 03/28/23 05:41 03/28/23 05:41 Labs: Laboratory Results - last 24 hr 03/27/23 05:47: Hemoglobin A1c 4.9, Procalcitonin 0.45 H 03/27/23 12:00: POC Glucose 122 H 03/27/23 17:05: POC Glucose 135 H 03/27/23 22:46: POC Glucose 110 H 03/28/23 05:41: WBC 10.2, RBC 2.55 L, Hgb 7.9 L, Hct 25.1 L, MCV 98.4, MCH 31.0, MCHC 31.5 L, RDW Std Deviation 55.7 H, RDW Coeff of Nathaniel 15.6 H, Plt Count 124 L, MPV 9.5, Immature Gran % (Auto) 0.900, Neut % (Auto) 64.6, Lymph % (Auto) 23.4, Gem % (Auto) 9.1, Eos % (Auto) 1.7, Baso % (Auto) 0.3, Absolute Neuts (auto) 6.6, Absolute Lymphs (auto) 2.38, Nucleated RBC % 0, Sodium 133 L, Potassium 3.3 L, Chloride 96 L, Carbon Dioxide 32.0, Anion Gap 5, BUN 16, Creatinine 2.65 H, Estim Creat Clear Calc 14.06, Est GFR (MDRD) Af Amer 22 L, Est GFR (MDRD) Non-Af 19 L, BUN/Creatinine Ratio 6.0 L, Glucose 104, Calcium 8.0 L 03/28/23 06:48: POC Glucose 95 Radiography Diagnostic Testing: Radiology Impression Echocardiogram 03/26/23 19:40 Interpretation Summary The estimated ejection fraction is 70 %. Unable to assess diastolic dysfunction. Trivial mitral valve insufficiency. Ordering Physician: Melissa Coffey Referring Physician: Liudmila Kuhn M.D. Performed By: Elen Munroe RCS Brain MRI 03/27/23 06:00 IMPRESSION: A cluster of 3 subacute lacunar ischemic infarcts in the left periventricular white matter and in the subcortical white matter of the left central lobe. These are suspicious for microembolic infarcts that are probably cardioembolic in source/origin due to the negative CTA head and neck. N.B. : The above Results were Read Back by Yash Brewer MD to Yash Barahona RN, and understanding confirmed on 03/27/2023 10:20:53 (ET). Electronically Signed: Yash Brewer MD at 10:06 EDT , Physical Exam Narrative GENERAL: cooperative HEENT: Atraumatic; normocephalic EYES; Anicteric, Normal Conjunctiva NECK; supple, normal thyroid, RESPIRATORY: Diminished to auscultation CARDIOVASCULAR: Regular S1 S2, GI: soft, normoactive bowel sounds, : No Renal angle tenderness; EXTREMITIES: No edema, no clubbing, MUSCULOSKELETAL: no muscle wasting NEURO: Awake; no lateralizing signs. SKIN: No Rash PSYCH; Flat affect Assessment & Plan Assessment/Plan (1) CVA (cerebral vascular accident): QUALIFIERS: CVA mechanism: embolism Precerebral and cerebral artery: unspecified precerebral artery Qualified Code(s): I63.10 - Cerebral infarction due to embolism of unspecified precerebral artery PLAN: Plan Patient is a 77-year-old gentleman with history of end-stage renal disease on dialysis was found to have slurred speech and left-sided facial droop was undergoing dialysis was sent to the ED admitted to monitored bed for subsequent management 1. Suspected CVA ? Patient presented with left-sided facial droop, dysarthria. Admitted to [facility] stroke protocol initiated patient to undergo subsequent evaluation with MRI. Patient's MRI did demonstrate A cluster of 3 subacute lacunar ischemic infarcts in the left periventricular white matter and in the subcortical white matter of the left central lobe. These are suspicious for patsy roembolic infarcts that are probably cardioembolic in source/origin due to the negative CTA head and neck.. Patient placed on dual antiplatelet therapy in addition to statin therapy with consultation placed to neurology ? 03/28/2023 patient was seen in consultation by teleneuro recommended against a ddition of Plavix which has subsequently been discontinued. The patient was observed by nursing staff to be experiencing choking sensation speech therapy subsequently consulted 2. End-stage renal disease ? On hemodialysis, nephrology consulted for dialysis orders 3. Diabetes mellitus type II - Placed on long acting insulin, Accu-Cheks a.c. and at bedtime and covered with sliding scale insulin 4. Paroxysmal atrial fibrillation ? Probably accounting for patient's acute CVA rate controlled patient is on systemic anticoagulation with apixaban continued 5. Depression with anxiety ? Patient is on sertraline continue 6. Hypertension - Blood pressure controlled, home medications continued with dose adjustment as needed 7. GERD ? On PPI 9. Dyslipidemia -Patient is on statin therapy, continued at home dose 10. Class II obesity with BMI of 39 ? Complicating care weight loss advised 11. DVT prophylaxis ? On apixaban Time spent in the patient's overall evaluation,decision-making process, review of diagnostic data, adjustment of management, discussion with other providers, nursing nursing and ancillary staff involved in patient's care documentation, 40 Minutes Charges/Coding Visit Charges Inpatient E&M: 45963 Subs Hosp L2
--- NOTE | 2023-03-28 09:02 | CASEMGMT ---
Discharge Planning Updates sent to [facility] Snehal Layton, Discharge Planning Asst.
--- NOTE | 2023-03-28 09:48 | PCM.PN.REN ---
Subjective Subjective Sitting up in bed. no complaints Objective Data Objective Data Vital Signs: Vital Signs Temp Pulse Resp BP Pulse Ox O2 Del Method O2 Flow Rate 97.3 F L 79 16 100/89 H 93 Nasal Cannula 2 03/28/23 06:00 03/28/23 06:00 03/28/23 06:00 03/28/23 06:00 03/28/23 06:00 03/28/23 06:00 03/28/23 06:00 Oxygen Flow Rate (L/min) 2 Oxygen Delivery Method Nasal Cannula Weight: 115.2 kg Body Mass Index (BMI) 46.4 Intake & Output: Intake and Output for Last 24 Hours 03/26/23 03/27/23 03/28/23 23:59 23:59 23:59 Intake Total 305 / 305 665 / 665 Output Total 0 / 0 0 / 0 0 / 0 Balance 305 / 305 665 / 665 0 / 0 Lab / Micro Data 03/28/23 05:41 03/28/23 05:41 Labs: Laboratory Results - last 24 hr 03/27/23 12:00: POC Glucose 122 H 03/27/23 17:05: POC Glucose 135 H 03/27/23 22:46: POC Glucose 110 H 03/28/23 05:41: WBC 10.2, RBC 2.55 L, Hgb 7.9 L, Hct 25.1 L, MCV 98.4, MCH 31.0, MCHC 31.5 L, RDW Std Deviation 55.7 H, RDW Coeff of Nathaniel 15.6 H, Plt Count 124 L, MPV 9.5, Immature Gran % (Auto) 0.900, Neut % (Auto) 64.6, Lymph % (Auto) 23.4, Hardy % (Auto) 9.1, Eos % (Auto) 1.7, Baso % (Auto) 0.3, Absolute Neuts (auto) 6.6, Absolute Lymphs (auto) 2.38, Nucleated RBC % 0, Sodium 133 L, Potassium 3.3 L, Chloride 96 L, Carbon Dioxide 32.0, Anion Gap 5, BUN 16, Creatinine 2.65 H, Estim Creat Clear Calc 14.06, Est GFR (MDRD) Af Amer 22 L, Est GFR (MDRD) Non-Af 19 L, BUN/Creatinine Ratio 6.0 L, Glucose 104, Calcium 8.0 L 03/28/23 06:48: POC Glucose 95 Radiography Diagnostic Testing: Radiology Impression Echocardiogram 03/26/23 19:40 Interpretation Summary The estimated ejection fraction is 70 %. Unable to assess diastolic dysfunction. Trivial mitral valve insufficiency. Ordering Physician: Melissa Coffey Referring Physician: Liudmila Kuhn M.D. Performed By: Elen Munroe RCS Brain MRI 03/27/23 06:00 IMPRESSION: A cluster of 3 subacute lacunar ischemic infarcts in the left periventricular white matter and in the subcortical white matter of the left central lobe. These are suspicious for microembolic infarcts that are probably cardioembolic in source/origin due to the negative CTA head and neck. N.B. : The above Results were Read Back by Yash Brewer MD to Yash Barahona RN, and understanding confirmed on 03/27/2023 10:20:53 (ET). Electronically Signed: Yash Brewer MD at 10:06 EDT Reading Location ID and State: [facility] / [place] , Service support , Physical Exam Narrative Alert and oriented x3, no apparent distress, expressive aphasia S1, S2, RRR Lung sounds clear anteriorly, no wheezes rhonchi or rales noted Abdomen soft, rounded, positive bowel sounds Bilateral legs with Scotty wraps intact. Edema noted to bilateral lower legs. No edema to bilateral thighs Tunneled HD catheter right chest dressing clean, dry and intact Assessment & Plan Assessment/Plan (1) ESRD (end stage renal disease) on dialysis: (2) Anemia in chronic kidney disease: PLAN: Plan - ESRD on HD at [facility]: -Sat schedule. Patient to undergo dialysis today over 3 hours/3k bath and attempt around 2 L fluid removal as blood pressure will tolerate. We will plan for dialysis again tomorrow. - left-sided facial droop and mild to moderate aphasia concerning for CVA. MRI: 3 subacute lacunar ischemic infarcts, call placed to teleneurology who recommended Eliquis, Plavix and atorvastatin. CTA head/neck: no acute findings, mild degree calcific plaques right and left internal carotid arteries. - history of anemia of chronic disease, will monitor hemoglobin trends. Patient does receive NATALI and iron at dialysis. - Blood pressures are on low side but acceptable, continue on midodrine. - On IV antibiotics for probable pneumonia. Chest x-ray questionable for possible left lower lobe pneumonia and also pleural effusions.
[2023-03-28] MEDS: Midodrine HCl 5 MG Tablet 10 MG PO ×3 (10:15→23:19)
[2023-03-28] MEDS: APIXABAN 5 MG TABLET PO ×2 (10:15→23:39)
[2023-03-28] MEDS: Sertraline 50 MG Tablet 25 MG PO (10:15)
[2023-03-28] MEDS: Pantoprazole Sodium 40 MG Tablet PO (10:15)
[2023-03-28] MEDS: Docusate Sodium 100 MG Capsule PO ×2 (10:16→23:18)
--- NOTE | 2023-03-28 10:32 | CASEMGMT ---
SW spoke with patient. Introduced self and role at [facility]. SW asked patient if her plan is to return to [facility] at discharge. Patient said that is her plan. Plan: d/c back to [facility] when medically ready. Joyce STERN
[2023-03-28] MEDS: 0.9% Saline Lock 10 ML Syringe IV (10:52)
[2023-03-28] MEDS: 0.9% Normal Saline 1,000 ML IV.SOLN. 1000 ML OPERA.SITE (10:53)
[2023-03-28] MEDS: PureFlow B 3K Dialysis Soln 1 BAG 6 BAG PF (10:53)
[2023-03-28 12:28] LABS: Bedside Glucose 109 mg/dL (74-106)
[2023-03-28] MEDS: Ceftriaxone 1 GM/50 ML BAG IV (18:17)
[2023-03-28] MEDS: Menthol/Lanolin/Calamine/Znox 113 GM Tube 1 APPLIC TOPICAL ×2 (18:22→23:18)
[2023-03-28] MEDS: Azithromycin 500 MG in Dextrose 5%-Water (250mL Bag) 250 ML 250 MG IV (18:57)
[2023-03-28 19:51] LABS: Bedside Glucose 121 mg/dL (74-106)
[2023-03-28] MEDS: Atorvastatin Calcium 80 MG Tablet PO (23:18)
[2023-03-28] MEDS: MELATONIN 3 MG TABLET 9 MG PO (23:19)
[2023-03-28] MEDS: Gabapentin 100 MG Capsule 200 MG PO (23:26)
[2023-03-28] MEDS: Magnesium Hydroxide 30 ML UDC 15 ML PO (23:36)
[2023-03-28 23:58] LABS: Bedside Glucose 153 mg/dL (74-106)
[2023-03-29] VITALS (13 sets, daily range): BP systolic 88–196; BP diastolic 40–66; PULSE 65–89; RESP 14–18; TEMP 36.2–36.7; O2SAT 94–98; BMI 45.9; BMI 38.2; BMI 37.7
[2023-03-29] MEDS: guaiFENesin 10 ML UDC (200MG/10ML) 20 ML PO (00:43)
[2023-03-29] MEDS: Miconazole Nitrate 43 GM Bottle 1 APPLIC TOPICAL (06:18)
[2023-03-29 06:58] LABS: Bedside Glucose 109 mg/dL (74-106)
[2023-03-29] MEDS: Docusate Sodium 100 MG Capsule PO (08:14)
[2023-03-29] MEDS: Pantoprazole Sodium 40 MG Tablet PO (08:14)
[2023-03-29] MEDS: Sertraline 50 MG Tablet 25 MG PO (08:14)
[2023-03-29] MEDS: APIXABAN 5 MG TABLET PO (08:14)
[2023-03-29] MEDS: Midodrine HCl 5 MG Tablet 10 MG PO ×3 (08:15→14:09)
[2023-03-29] MEDS: Menthol/Lanolin/Calamine/Znox 113 GM Tube 1 APPLIC TOPICAL (10:15)
[2023-03-29] MEDS: Acetaminophen 325 MG Tablet 650 MG PO (11:06)
--- NOTE | 2023-03-29 11:08 | ST.MBS ---
Modified Barium Swallow Patient Information Study Date: 03/29/23 Study Time: 10:20 Direct Billable Minutes: 115 Total Minutes procedure & reportin Diagnosis: CVA (I63.9) Referring Physician: Wu Cardenas Reason for Referral: Objectively assess swallow function, assess risk for aspiration, and determine recommendations for least restrictive diet textures and compensatory strategies to improve safety of swallow. 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 She also had difficulty communicating, prompting ED evaluation. In the ED NIH stroke scale 3 with minor facial paralysis, mild to moderate aphasia and mild to moderate dysarthria. In the ED, it was reported that the patient does have the ability to communicate however does take some time and often she needs to point and use hand signaling. She said she does have some chronic aphasia but she is unclear and uncertain if this is worsened from prior. Speech therapy evaluation completed on 03/27/23 with goals added to POC to address aphasia. RN requested CRAWLER DRAGLINE OPERATOR assess dysphagia on 03/28/23 so BSE was completed recommending Minced and moist textures / thin liquids with supervision and plan for MBSS 03/29/23 due to coughing observed with thin liquid trials. Current Diet Ordered: Minced and moist textures / Thin liquids Dentition: Upper Dentures Comment: Patient has chronic aphasia. From speech evaluation 03/27/23, patient could follow 1-step commands 100% and answer basic yes/no questions 100%. SEE evaluation for full details. Respiratory Status: Oxygenating on 2L/M nasal cannula Penetration-Aspiration Scale Penetration-Aspiration Scale: OBJECTIVE ASSESSMENT OF SWALLOW FUNCTION (QUANTITATIVE ? PER TRIAL): PENETRATION / ASPIRATION SCALE (TOMAS): 1 = does not enter airway 2 = enters airway/above vocal folds/ejected 3 = enters airway/above vocal folds/not ejected 4 = enters airway/contacts vocal folds/ejected 5 = enters airway/contacts vocal folds/not ejected 6 = enters airway/below vocal folds/ejected 7 = enters airway/below vocal folds/not ejected despite effort 8 = enters airway/below vocal folds/no effort VIDEOFLOROSCOPIC SCALE SCORE (TOMAS): Grade I = aspiration of material that has penetrated into the laryngeal vestibule, intact cough reflex Grade II = aspiration < 10 % of the bolus, intact cough reflex Grade III = aspiration of < 10 % of the bolus, reduced cough reflex or aspiration of > 10 % of the bolus, intact cough reflex Grade IV = aspiration of > 10 % of the bolus, reduced cough reflex Penetration-Aspiration Scale Score Thin Liquid via teaspoon: Result: 2= enter airway/above vocal folds/ejected Thin liquid via small cup sip: Result: 2= enter airway/above vocal folds/ejected Thin liquid via small cup sip Trial 2: Result: 2= enter airway/above vocal folds/ejected [place] thick liquid via small cup sip: Result: 2= enter airway/above vocal folds/ejected Pudding via teaspoon: Result: 1= does not enter airway Thin liquid via small cup sip Trial 3: Result: 2= enter airway/above vocal folds/ejected Thin liquid via small cup sip Trial 4: Result: 2= enter airway/above vocal folds/ejected Oral Phase Labial Seal: Escape beyond mid-chin Tongue Control During Bolus Hold: Posterior escape of less than half of bolus Bolus Transport/Lingual Motion: Repetitive/disorganized tongue motion Oral Residue: Residue collection on oral structures Pharyngeal Phase Initiation of Pharyngeal Swallow: Bolus head in pyriforms (one trial of thin by cup spilled to the laryngeal vestibule prior to swallow onset) Soft Palate Elevation: No bolus between soft palate and pharyngeal wall Laryngeal Elevation: Comp. Superior move thyroid cart w/comp. apprx arytenoid cart-epig pet Anterior Hyoid Excursion: Partial anterior movement Epiglottic Movement: Complete inversion Laryngeal Vestibule Closure at Height of Swallow: Incomplete; narrow column of air/contrast in laryngeal vestibule Pharyngeal Stripping Wave: Present - complete Pharyngoesophageal Segment Opening: Complete distension and complete duration; no obstruction of flow Tongue Base Retraction: Narrow column of contrast between tongue base & post. pharyngeal wall Pharyngeal Residue: Trace residue within or on pharyngeal structures Diagnosis/Impression Diagnosis: Mild-moderate oropharyngeal phase dysphagia (R13.12) Impression: The patient appeared upset when transferred to the chair for the test. She had difficulty verbalizing what she wanted to say. CRAWLER DRAGLINE OPERATOR thoroughly educated the patient in purpose of MBSS and in the steps of the procedure. After education, the patient shook head yes when asked if it was okay to proceed with the test. The oral phase is primarily marked by... -Decreased bolus control with premature posterior loss of thin liquids to the pyriforms or even laryngeal vestibule prior to swallow onset. -Lingual pumping for A-P transport. -Mild-moderate oral residues after the swallow. The pharyngeal phase is primarily marked by... -Delayed swallow onset. -Mildly decreased tongue base retraction with resulting trace-mild pharyngeal residues -Consistent laryngeal penetration of thin liquids that fully ejected during the swallow. No aspiration observed; however, cannot definitively rule out aspiration due to patient's body habitus. Trachea was only fully in view during the swallows. Did not trial cookie due to known moderate mastication deficits with regular textured cookie from BSE on 03/28/23. At baseline, patient was on mechanical soft diet at [facility]. Attempted straw trial with thin liquids, but the patient blew through the straw rather than using it to take a sip. Recommendations Diet: Thin Liquids Comment: Minced and Moist textures (IDDSI Level 5) Compensatory Strategies: Small Bites, Small Sips, Slow Rate (Sips one at a time), Alternate bites/solids and sips/liquids, Sitting upright and Remain sitting upright for 30 minutes after PO intake Supervision: 1:1 Close Supervision (Supervision at meals to ensure use of strategies and to assist feeding as needed.) Recommend Repeat Modified Barium Swallow: No Need for Skilled Speech Therapy Services: Yes Comment: Will recommend the patient for continued dysphagia therapy to address deficits in oropharyngeal swallow function. Will recommend the patient for oropharyngeal strengthening to improve lingual strength/coordination, labial seal, mastication deficits, and tongue base retraction. The patient would benefit from thorough education regarding diet recommendations and recommended compensatory strategies. Education Completed: 1. Described result of evaluation. and 7. Pt requires further education on strategies & risks. Status Active ST Patient: Active Contact Information [facility] Speech Therapy:: Ave Aguirre M.A. [facility]-CRAWLER DRAGLINE OPERATOR Speech-Language Pathologist [facility] [address] [place] [address] [phone]
--- NOTE | 2023-03-29 11:12 | PCM.PN.HOSP ---
Reason for Visit Reason for Visit: Diagnoses Cerebral infarction due to embolism of unspecified precerebral artery (03/26/23) Cerebral infarction, unspecified (03/26/23) Subjective Subjective Patient seen scheduled to undergo modified barium swallow prior to decision being made about her possible discharge Objective Data Objective Data Vital Signs: Vital Signs Temp Pulse Resp BP Pulse Ox O2 Del Method O2 Flow Rate 97.5 F L 82 18 106/40 L 98 Nasal Cannula 2 03/29/23 08:00 03/29/23 08:00 03/29/23 08:00 03/29/23 08:00 03/29/23 08:00 03/29/23 10:00 03/29/23 10:00 Oxygen Flow Rate (L/min) 2 Oxygen Delivery Method Nasal Cannula Weight: 95 kg Body Mass Index (BMI) 38.2 Intake & Output: Intake and Output for Last 24 Hours 03/27/23 03/28/23 03/29/23 23:59 23:59 23:59 Intake Total 665 / 665 425 / 545 120 / 120 Output Total 0 / 0 2180 / 2180 100 / 100 Balance 665 / 665 -1755 / -1635 Lab / Micro Data 03/28/23 05:41 03/28/23 05:41 Labs: Laboratory Results - last 24 hr 03/28/23 12:10: POC Glucose 109 H 03/28/23 17:58: POC Glucose 121 H 03/28/23 23:30: POC Glucose 153 H 03/29/23 06:16: POC Glucose 109 H Radiography Diagnostic Testing: Radiology Impression Carotid Duplex 03/26/23 19:40 Interpretation Summary Normal right extracranial internal carotid. Mild (<50%) stenosis left extracranial internal carotid. Patent and antegrade vertebrals bilaterally. Ordering Physician: Melissa Coffey Referring Physician: Liudmila Kuhn M.D. Performed By: Nena Julian RVT Physical Exam Narrative GENERAL: cooperative HEENT: Atraumatic; normocephalic EYES; Anicteric, Normal Conjunctiva NECK; supple, normal thyroid, RESPIRATORY: Diminished to auscultation CARDIOVASCULAR: Regular S1 S2, GI: soft, normoactive bowel sounds, : No Renal angle tenderness; EXTREMITIES: No edema, no clubbing, MUSCULOSKELETAL: no muscle wasting NEURO: Awake; no lateralizing signs. SKIN: No Rash PSYCH; Flat affect Assessment & Plan Assessment/Plan (1) CVA (cerebral vascular accident): QUALIFIERS: CVA mechanism: embolism Precerebral and cerebral artery: unspecified precerebral artery Qualified Code(s): I63.10 - Cerebral infarction due to embolism of unspecified precerebral artery PLAN: Plan Patient is a 77-year-old gentleman with history of end-stage renal disease on dialysis was found to have slurred speech and left-sided facial droop was undergoing dialysis was sent to the ED admitted to monitored bed for subsequent management 1. Suspected CVA ? Patient presented with left-sided facial droop, dysarthria. Admitted to monitored bed stroke protocol initiated patient to undergo subsequent evaluation with MRI. Patient's MRI did demonstrate A cluster of 3 subacute lacunar ischemic infarcts in the left periventricular white matter and in the subcortical white matter of the left central lobe. These are suspicious for microembolic infarcts that are probably cardioembolic in source/origin due to the negative CTA head and neck.. Patient placed on dual antiplatelet therapy in addition to statin therapy with consultation placed to neurology ? 03/28/2023 patient was seen in consultation by teleneuro recommended against addition of Plavix which has subsequently been discontinued. The patient was observed by nursing staff to be experiencing choking sensation speech therapy subsequently consulted ? 03/29/2023; Patient seen scheduled to undergo modified barium swallow prior to decision being made about her possible discharge 2. End-stage renal disease ? On hemodialysis, nephrology consulted for dialysis orders 3. Diabetes mellitus type II - Placed on long acting insulin, Accu-Cheks a.c. and at bedtime and covered with sliding scale insulin 4. Paroxysmal atrial fibrillation ? Probably accounting for patient's acute CVA rate controlled patient is on systemic anticoagulation with apixaban continued 5. Depression with anxiety ? Patient is on sertraline continue 6. Hypertension - Blood pressure controlled, home medications continued with dose adjustment as needed 7. GERD ? On PPI 9. Dyslipidemia -Patient is on statin therapy, continued at home dose 10. Class II obesity with BMI of 39 ? Complicating care weight loss advised 11. DVT prophylaxis ? On apixaban Time spent in the patient's overall evaluation,decision-making process, review of diagnostic data, adjustment of management, discussion with other providers, nursing nursing and ancillary staff involved in patient's care documentation, 40 Minutes Charges/Coding Visit Charges Inpatient E&M: 41515 Subs Hosp L2
--- NOTE | 2023-03-29 11:25 | PCM.PN.REN ---
Subjective Subjective No complaints, possible discharge to ECF today. Objective Data Objective Data Vital Signs: Vital Signs Temp Pulse Resp BP Pulse Ox O2 Del Method O2 Flow Rate 97.5 F L 82 18 106/40 L 98 Nasal Cannula 2 03/29/23 08:00 03/29/23 08:00 03/29/23 08:00 03/29/23 08:00 03/29/23 08:00 03/29/23 10:00 03/29/23 10:00 Oxygen Flow Rate (L/min) 2 Oxygen Delivery Method Nasal Cannula Weight: 95 kg Body Mass Index (BMI) 38.2 Intake & Output: Intake and Output for Last 24 Hours 03/27/23 03/28/23 03/29/23 23:59 23:59 23:59 Intake Total 665 / 665 425 / 545 120 / 120 Output Total 0 / 0 2180 / 2180 100 / 100 Balance 665 / 665 -1755 / -1635 Lab / Micro Data 03/28/23 05:41 03/28/23 05:41 Labs: Laboratory Results - last 24 hr 03/28/23 12:10: POC Glucose 109 H 03/28/23 17:58: POC Glucose 121 H 03/28/23 23:30: POC Glucose 153 H 03/29/23 06:16: POC Glucose 109 H Radiography Diagnostic Testing: Radiology Impression Carotid Duplex 03/26/23 19:40 Interpretation Summary Normal right extracranial internal carotid. Mild (<50%) stenosis left extracranial internal carotid. Patent and antegrade vertebrals bilaterally. Ordering Physician: Melissa Coffey Referring Physician: Liudmila Kuhn M.D. Performed By: Nena Julian RVT Physical Exam Narrative Alert and oriented x3, no apparent distress, expressive aphasia S1, S2, RRR Lung sounds clear anteriorly, no wheezes rhonchi or rales noted Abdomen soft, rounded, positive bowel sounds Bilateral legs with Scotty wraps intact. Edema noted to bilateral lower legs. No edema to bilateral thighs Tunneled HD catheter right chest dressing clean, dry and intact Assessment & Plan Assessment/Plan (1) ESRD (end stage renal disease) on dialysis: (2) Anemia in chronic kidney disease: PLAN: Plan - ESRD on HD at [facility]: ---Sat schedule. Patient to undergo dialysis today over 3 hours/3k bath and attempt around 2 L fluid removal as blood pressure will tolerate. She tolerated 1 L UF with HD yesterday. - left-sided facial droop and mild to moderate aphasia concerning for CVA. MRI: 3 subacute lacunar ischemic infarcts, call placed to teleneurology who recommended Eliquis, Plavix and atorvastatin. CTA head/neck: no acute findings, mild degree calcific plaques right and left internal carotid arteries. - history of anemia of chronic disease, will monitor hemoglobin trends. Patient does receive NATALI and iron at dialysis. - Blood pressures are on low side but acceptable, continue on midodrine. - On IV antibiotics for probable pneumonia. Chest x-ray questionable for possible left lower lobe pneumonia and also pleural effusions. -Patient underwent swallow test today, depending on results patient possibly to be discharged to ECF today. Okay for discharge per renal when cleared by primary team. Patient likely to undergo hemodialysis in hospital before discharge to ECF.
[2023-03-29 11:50] LABS: Absolute Lymphocyte Count 1.46 X10^3/uL (0.83-4.51); Absolute Neutrophil Count 6.3 X10^3/uL (2.0-7.7); Basophil# 0.03 X10^3/uL; Basophil% 0.3 % (0-1); Eosinophil# 0.15 X10^3/uL; Eosinophils% 1.7 % (0-5); Hematocrit 24.4 % (37-47); Hemoglobin 7.5 g/dL (12.0-15.0); Lymphocyte # 1.46 X10^3/ul (0.83-4.51); Lymphocyte % 16.7 % (19-41); Mean Corp Hgb Conc 30.7 g/dL (32-36); Mean Corpuscular Hgb 31.1 pg (27.0-32.0); Mean Corpuscular Volume 101.2 fL (81-99); Mean Platelet Vol. 9.9 fl (6.2-12.0); Monocyte# 0.67 X10^3/uL; Monocyte% 7.7 % (0-10); NRBC Flagged by Analyzer 0 % (0-5); Neutrophil # 6.28 X10^3/uL (2.7-7.7); Neutrophil % 71.8 % (47-70); Platelet Count 111 K/mm3 (150-450); RBC Distribution Width CV 15.9 % (11.6-14.6); Red Blood Count 2.41 M/mm3 (4.2-5.4); White Blood Count 8.8 K/mm3 (4.4-11.0)
[2023-03-29 12:04] LABS: Anion Gap 4 (5-15); BUN 12 mg/dL (7-18); Calcium,Total 8.2 mg/dL (8.5-10.1); Chloride 99 mmol/L (98-107); EST Glomerular Filtration Rate 21 mL/min (>60); Est Glom Filt Rate - Afr Amer 25 mL/min (>60); Estimated Creatinine Clearance 15.53 ml/min; Glucose 157 mg/dL (74-106); Potassium 3.4 mmol/L (3.5-5.1); Sodium Level 134 mmol/L (136-145)
--- NOTE | 2023-03-29 12:32 | PCM.TXEXTCAR ---
Diet Diet Order/Speech Therapy: 03/27/23 03:52 Diet: Cardiac: Calorie-Controlled Food consistency:: Mechanical (Minced/Moist) Type of Dietary Supplement:: Nepro Is pt able to select menu?: No Diet Comments: 8oz Nepro with breakfast and dinner How many daily calories?: 1800 calorie Wound(s) under left breast: Wound Type: Pressure Injury Dressing Change: dry dressing left lower back: Wound Type: Pressure Injury coccyx: Wound Type: Pressure Injury cleft: Wound Type: Pressure Injury right buttock: Wound Type: Pressure Injury left mid back skin fold: Wound Type: EXCORIATION Problem/Diagnosis (1) ESRD (end stage renal disease) on dialysis: Status: Acute Code(s): N18.6 - End stage renal disease; Z99.2 - Dependence on renal dialysis (2) Anemia in chronic kidney disease: Status: Chronic Code(s): N18.9 - Chronic kidney disease, unspecified; D63.1 - Anemia in chronic kidney disease Plan Patient is a 77-year-old gentleman with history of end-stage renal disease on dialysis was found to have slurred speech and left-sided facial droop was undergoing dialysis was sent to the ED admitted to monitored bed for subsequent management 1. Suspected CVA ? Patient presented with left-sided facial droop, dysarthria. Admitted to monitored bed stroke protocol initiated patient to undergo subsequent evaluation with MRI. Patient's MRI did demonstrate A cluster of 3 subacute lacunar ischemic infarcts in the left periventricular white matter and in the subcortical white matter of the left central lobe. These are suspicious for microembolic infarcts that are probably cardioembolic in source/origin due to the negative CTA head and neck.. Patient placed on dual antiplatelet therapy in addition to statin therapy with consultation placed to neurology ? 03/28/2023 patient was seen in consultation by teleneuro recommended against addition of Plavix which has subsequently been discontinued. The patient was observed by nursing staff to be experiencing choking sensation speech therapy subsequently consulted ? 03/29/2023; Patient seen scheduled to undergo modified barium swallow prior to decision being made about her possible discharge Recommendations from speech therapy following modified barium swallow Minced and Moist textures (IDDSI Level 5) Compensatory Strategies: Small Bites, Small Sips, Slow Rate (Sips one at a time), Alternate bites/solids and sips/liquids, Sitting upright and Remain sitting upright for 30 minutes after PO intake Supervision: 1:1 Close Supervision (Supervision at meals to ensure use of strategies and to assist feeding as needed.) Recommend Repeat Modified Barium Swallow: No Need for Skilled Speech Therapy Services: Yes Education Completed: 1. Described result of evaluation. and 7. Pt requires further education on strategies & risks. 2. End-stage renal disease ? On hemodialysis, nephrology consulted for dialysis orders 3. Diabetes mellitus type II - Placed on long acting insulin, Accu-Cheks a.c. and at bedtime and covered with sliding scale insulin 4. Paroxysmal atrial fibrillation ? Probably accounting for patient's acute CVA rate controlled patient is on systemic anticoagulation with apixaban continued 5. Depression with anxiety ? Patient is on sertraline continue 6. Hypertension - Blood pressure controlled, home medications continued with dose adjustment as needed 7. GERD ? On PPI 9. Dyslipidemia -Patient is on statin therapy, continued at home dose 10. Class II obesity with BMI of 39 ? Complicating care weight loss advised 11. DVT prophylaxis ? On apixaban Time spent in the patient's overall evaluation,decision-making process, review of diagnostic data, adjustment of management, discussion with other providers, nursing nursing and ancillary staff involved in patient's care documentation, 40 Minutes Allergies/Procedures Done in Hospital Allergies codeine Allergy (Mild, Verified 03/26/23 11:47) PT UNABLE TO RESPOND-NEEDS F/U hydrocodone Allergy (Mild, Verified 03/26/23 11:47) PT UNABLE TO RESPOND-NEEDS F/U tramadol Allergy (Mild, Verified 03/26/23 11:47) PT UNABLE TO RESPOND-NEEDS F/U Type of Care/Length of Stay Estimated LOS: More Than 30 Days Type of Care Needed: Skilled Rehab Potential: Fair Prognosis: Fair Additional Orders/Day of Discharge Day of Discharge: 03/29/23 Dietary and Speech Recommendations Dietitian Recommendations/Changes: Continue 1800 CCD/Cardiac diet with texture/consistency per SECURITY ASSURANCE ANALYST to manage medical conditions. Will monitor PO intakes and labs and reassess need for renal diet restrictions at follow-up. RD will order Nepro BID with meals to provide supplemental energy. Speech Linguistic Eval Summary: Comment: Minced and Moist textures (IDDSI Level 5) Compensatory Strategies: Small Bites, Small Sips, Slow Rate (Sips one at a time), Alternate bites/solids and sips/liquids, Sitting upright and Remain sitting upright for 30 minutes after PO intake Supervision: 1:1 Close Supervision (Supervision at meals to ensure use of strategies and to assist feeding as needed.) Recommend Repeat Modified Barium Swallow: No Need for Skilled Speech Therapy Services: Yes Education Completed: 1. Described result of evaluation. and 7. Pt requires further education on strategies & risks. Discharge Plan Admission Admit Date/Time: 03/26/23 15:01 Attending Provider: Wu Cardenas Primary Care Provider: Liudmila Kuhn Consulting Providers: Roxy Resendiz; Melissa Coffey Discharge Orders/Prescriptions Prescriptions: New miconazole nitrate [Desenex] 2 % Powder 1 applic topical TID Qty: 0 0RF Protocol: *Topical Application Instructions APPLICATION INSTRUCTIONS: apply to affected areas alum-mag hydroxide-simeth [Mag-Al Plus Extra Strength] 400-400-40 mg/5 mL Suspension 30 ml PO Q6H PRN PRN (Reason: Gastric Burning) Qty: 0 0RF insulin lispro [Humalog KwikPen Insulin] 100 unit/mL Insulin Pen See Protocol subcut ACHS Qty: 0 0RF Protocol: 1. Sliding Scale Insulin Low Dosing Condition: 150-224 mg/dl = 1 unit Condition: 225-299 mg/dl = 2 units Condition: 300-374 mg/dl = 3 units Condition: 375-499 mg/dl = 4 units Condition: Greater than 449 call physician Protocol Text: - Use for Total Daily Dose of Insulin 15-27 units - Thin, elderly, renal patients LOW DOSING ALGORITHM menthol-zinc oxide [Calmoseptine] 0.44-20.6 % Ointment 1 applic topical 4X/DAY Qty: 0 0RF Protocol: *Topical Application Instructions APPLICATION INSTRUCTIONS: apply to affected region acetaminophen 325 mg Tablet 650 mg PO Q4H PRN PRN (Reason: Fever, pain 1-04/16) Qty: 0 0RF albuterol sulfate 2.5 mg /3 mL (0.083 %) Solution For Nebulization 2.5 mg inhalation Q2H PRN PRN (Reason: Dyspnea, wheezing) Qty: 0 0RF amoxicillin-pot clavulanate 875-125 mg tablet 1 tab PO BID Qty: 14 0RF Continued Eliquis 5 mg tablet 5 mg PO BID aspirin [Adult Low Dose Aspirin] 81 mg tablet,delayed release (DR/EC) 81 mg PO DAILY atorvastatin 40 mg tablet 40 mg PO QHS docusate sodium [Colace] 100 mg capsule 100 mg PO BID cyclobenzaprine 5 mg tablet 5 mg PO BID PRN (Reason: muscle spasms) gabapentin 100 mg capsule 200 mg PO QHS insulin glargine [Lantus Solostar U-100 Insulin] 100 unit/mL (3 mL) insulin pen 10 unit subcut QHS melatonin 3 mg tablet 9 mg PO QHS metoclopramide HCl 5 mg tablet 5 mg PO Q8H PRN (Reason: nausea/vomiting) metoprolol tartrate 25 mg tablet 12.5 mg PO Q12H midodrine 10 mg tablet 10 mg PO 4X/DAY magnesium hydroxide [Milk of Magnesia] 400 mg/5 mL suspension 15 ml PO QHS nitroglycerin 0.4 mg tablet, sublingual 0.4 mg sublingual Q5M PRN (Reason: chest pain) Rx Instructions: do not exceed 3 doses per episode pantoprazole 40 mg tablet,delayed release (DR/EC) 40 mg PO DAILY vitamin B complex-folic acid 50 mcg tablet 1 tab PO DAILY sertraline 25 mg tablet 25 mg PO DAILY midodrine 10 mg tablet 10 mg PO DAILY PRN (Reason: hypotension during dialysis) Referrals / Follow Up: Liudmila Kuhn MD [Primary Care Provider] - Within 1 Week Disposition Disposition (needs filled in before D/C Order can be placed): [facility]
--- NOTE | 2023-03-29 12:38 | PCM.DC.SUM ---
Providers Date of Admission: 03/26/23 Date of Discharge: 03/29/23 Primary Care Physician: Dr. Liudmila Kuhn MD Consultations 03/26/23 19:40 Consult: Nephrology Routine Consulting Provider: Roxy Resendiz Reason for Consult: ESRD on HD T, Th, Sat EMERGENT Consult: No MD Notified: Yes Date Notified: 03/27/23 Time Notified: 06:47 Method of Notification: Answering Service 03/26/23 21:20 Consult: Onc/Wound/dining chair seat cushion trimmer Routine Comment: Reason for Consult:: wound on back and under left breast Reason For Visit: CVA ? PNA Diagnosis Discharge Diagnosis (1) ESRD (end stage renal disease) on dialysis: Status: Acute Code(s): N18.6 - End stage renal disease; Z99.2 - Dependence on renal dialysis (2) Anemia in chronic kidney disease: Status: Chronic Code(s): N18.9 - Chronic kidney disease, unspecified; D63.1 - Anemia in chronic kidney disease Plan Patient is a 77-year-old gentleman with history of end-stage renal disease on dialysis was found to have slurred speech and left-sided facial droop was undergoing dialysis was sent to the ED admitted to monitored bed for subsequent management 1. Suspected CVA ? Patient presented with left-sided facial droop, dysarthria. Admitted to monitored bed stroke protocol initiated patient to undergo subsequent evaluation with MRI. Patient's MRI did demonstrate A cluster of 3 subacute lacunar ischemic infarcts in the left periventricular white matter and in the subcortical white matter of the left central lobe. These are suspicious for microembolic infarcts that are probably cardioembolic in source/origin due to the negative CTA head and neck.. Patient placed on dual antiplatelet therapy in addition to statin therapy with consultation placed to neurology ? 03/28/2023 patient was seen in consultation by teleneuro recommended against addition of Plavix which has subsequently been discontinued. The patient was observed by nursing staff to be experiencing choking sensation speech therapy subsequently consulted ? 03/29/2023; Patient seen scheduled to undergo modified barium swallow prior to decision being made about her possible discharge Recommendations from speech therapy following modified barium swallow Minced and Moist textures (IDDSI Level 5) Compensatory Strategies: Small Bites, Small Sips, Slow Rate (Sips one at a time), Alternate bites/solids and sips/liquids, Sitting upright and Remain sitting upright for 30 minutes after PO intake Supervision: 1:1 Close Supervision (Supervision at meals to ensure use of strategies and to assist feeding as needed.) Recommend Repeat Modified Barium Swallow: No Need for Skilled Speech Therapy Services: Yes Education Completed: 1. Described result of evaluation. and 7. Pt requires further education on strategies & risks. 2. End-stage renal disease ? On hemodialysis, nephrology consulted for dialysis orders 3. Diabetes mellitus type II - Placed on long acting insulin, Accu-Cheks a.c. and at bedtime and covered with sliding scale insulin 4. Paroxysmal atrial fibrillation ? Probably accounting for patient's acute CVA rate controlled patient is on systemic anticoagulation with apixaban continued 5. Depression with anxiety ? Patient is on sertraline continue 6. Hypertension - Blood pressure controlled, home medications continued with dose adjustment as needed 7. GERD ? On PPI 9. Dyslipidemia -Patient is on statin therapy, continued at home dose 10. Class II obesity with BMI of 39 ? Complicating care weight loss advised 11. DVT prophylaxis ? On apixaban Time spent in the patient's overall evaluation,decision-making process, review of diagnostic data, adjustment of management, discussion with other providers, nursing nursing and ancillary staff involved in patient's care documentation, 40 Minutes Medications at Discharge Home Medications apixaban 5 mg tablet (Eliquis) 5 mg PO BID afib 03/26/23 aspirin 81 mg tablet,delayed release (Adult Low Dose Aspirin) 81 mg PO DAILY heart health 03/26/23 atorvastatin 40 mg tablet 40 mg PO QHS cholesterol 03/26/23 cyclobenzaprine 5 mg tablet 5 mg PO BID PRN muscle spasms 03/26/23 docusate sodium 100 mg capsule (Colace) 100 mg PO BID constipation 03/26/23 gabapentin 100 mg capsule 200 mg PO QHS neuropathy 03/26/23 insulin glargine 100 unit/mL (3 mL) subcutaneous pen (Lantus Solostar U-100 Insulin) 10 unit subcut QHS diabetes 03/26/23 magnesium hydroxide 400 mg/5 mL oral suspension (Milk of Magnesia) 15 ml PO QHS constipation 03/26/23 melatonin 3 mg tablet 9 mg PO QHS insomnia 03/26/23 metoclopramide HCl 5 mg tablet 5 mg PO Q8H PRN nausea/vomiting 03/26/23 metoprolol tartrate 25 mg tablet 12.5 mg PO Q12H blood pressure 03/26/23 midodrine 10 mg tablet 10 mg PO 4X/DAY blood pressure 03/26/23 midodrine 10 mg tablet 10 mg PO DAILY PRN hypotension during dialysis 03/26/23 nitroglycerin 0.4 mg sublingual tablet 0.4 mg sublingual Q5M PRN chest pain 03/26/23 pantoprazole 40 mg tablet,delayed release 40 mg PO DAILY acid reflux 03/26/23 sertraline 25 mg tablet 25 mg PO DAILY depression 03/26/23 vitamin B complex-folic acid 50 mcg tablet 1 tab PO DAILY supplement 03/26/23 acetaminophen 325 mg tablet 650 mg (2 x 325 mg) PO Q4H PRN PRN Fever, pain 1-04/16 #0 tabs 03/29/23 albuterol sulfate 2.5 mg/3 mL (0.083 %) solution for nebulization 2.5 mg (3 mL) inhalation Q2H PRN PRN Dyspnea, wheezing #0 mL 03/29/23 aluminum-mag hydroxide-simethicone 400 mg-400 mg-40 mg/5 mL oral susp (Mag-Al Plus Extra Strength) 30 ml PO Q6H PRN PRN Gastric Burning #0 mL 03/29/23 amoxicillin 875 mg-potassium clavulanate 125 mg tablet 1 tab PO BID #14 tabs 03/29/23 insulin lispro 100 unit/mL subcutaneous pen (Humalog KwikPen (U-100) Insulin) See Protocol subcut ACHS #0 mL 03/29/23 menthol 0.44 %-zinc oxide 20.6 % topical ointment (Calmoseptine) 1 applic topical 4X/DAY #0 grams 03/29/23 miconazole nitrate 2 % topical powder (Desenex) 1 applic topical TID #0 grams 03/29/23 Hospital Course Summary of Care Provided Minutes Spent on Discharge: 35 Physical Exam Narrative GENERAL: cooperative HEENT: Atraumatic; normocephalic EYES; Anicteric, Normal Conjunctiva NECK; supple, normal thyroid, RESPIRATORY: Diminished to auscultation CARDIOVASCULAR: Regular S1 S2, GI: soft, normoactive bowel sounds, : No Renal angle tenderness; EXTREMITIES: No edema, no clubbing, MUSCULOSKELETAL: no muscle wasting NEURO: Awake; SKIN: No Rash PSYCH; Flat affect Weight / BMI Weight Weight: 95 kg Body Mass Index (BMI) 38.2 ABG / Lab / Microbiology Data 03/29/23 11:25 03/29/23 11:25 Laboratory: Laboratory Results - last 24 hr 03/28/23 17:58: POC Glucose 121 H 03/28/23 23:30: POC Glucose 153 H 03/29/23 06:16: POC Glucose 109 H 03/29/23 11:25: WBC 8.8, RBC 2.41 L, Hgb 7.5 L, Hct 24.4 L, MCV 101.2 H, MCH 31.1, MCHC 30.7 L, RDW Std Deviation 58.0 H, RDW Coeff of Nathaniel 15.9 H, Plt Count 111 L, MPV 9.9, Immature Gran % (Auto) 1.800 H, Neut % (Auto) 71.8 H, Lymph % (Auto) 16.7 L, Hyde % (Auto) 7.7, Eos % (Auto) 1.7, Baso % (Auto) 0.3, Absolute Neuts (auto) 6.3, Absolute Lymphs (auto) 1.46, Nucleated RBC % 0, Sodium 134 L, Potassium 3.4 L, Chloride 99, Carbon Dioxide 31.0, Anion Gap 4 L, BUN 12, Creatinine 2.40 H, Estim Creat Clear Calc 15.53, Est GFR (MDRD) Af Amer 25 L, Est GFR (MDRD) Non-Af 21 L, BUN/Creatinine Ratio 5.0 L, Glucose 157 H, Calcium 8.2 L Radiography Diagnostic Testing: Radiology Impression Carotid Duplex 03/26/23 19:40 Interpretation Summary Normal right extracranial internal carotid. Mild (<50%) stenosis left extracranial internal carotid. Patent and antegrade vertebrals bilaterally. Ordering Physician: Melissa Coffey Referring Physician: Liudmila Kuhn M.D. Performed By: Nena Julian RVT D/C Instructions Discharge Diet: Swallowing Precautions (Comment: Minced and Moist textures (IDDSI Level 5) Compensatory Strategies: Small Bites, Small Sips, Slow Rate (Sips one at a time), Alternate bites/solids and sips/liquids, Sitting upright and Remain sitting upright for 30 minutes after PO intake Supervision: 1:1 Close Supervision (Supervision at ) Discharge Activity: Return to Normal Activity Call your doctor if you observe: Fever of 101 or Higher, Shortness of breath, Fainting spells and Chest pain Meaningful Use Info Meaningful Use Diagnoses (Choose all that apply): Ischemic CVA CVA Therapy Assessed for PT,OT and/or ST?: Yes Ischemic Stroke Antithrombotic order at d/c?: Yes Dx of Atrial fib/flutter?: Yes Anticoagulant at discharge?: Yes Statins at discharge?: Yes Primary Dx Acute Ischemic CVA?: Yes IV thrombolytic ordered during stay?: No Reason IV thrombolytic not ordered: Treatment not Indicated Discharge Plan Admission Admit Date/Time: 03/26/23 15:01 Attending Provider: Wu Cardenas Primary Care Provider: Liudmila Kuhn Consulting Providers: Roxy Resendiz; Melissa Coffey Discharge Orders/Prescriptions Prescriptions: New miconazole nitrate [Desenex] 2 % Powder 1 applic topical TID Qty: 0 0RF Protocol: *Topical Application Instructions APPLICATION INSTRUCTIONS: apply to affected areas alum-mag hydroxide-simeth [Mag-Al Plus Extra Strength] 400-400-40 mg/5 mL Suspension 30 ml PO Q6H PRN PRN (Reason: Gastric Burning) Qty: 0 0RF insulin lispro [Humalog KwikPen Insulin] 100 unit/mL Insulin Pen See Protocol subcut ACHS Qty: 0 0RF Protocol: 1. Sliding Scale Insulin Low Dosing Condition: 150-224 mg/dl = 1 unit Condition: 225-299 mg/dl = 2 units Condition: 300-374 mg/dl = 3 units Condition: 375-499 mg/dl = 4 units Condition: Greater than 449 call physician Protocol Text: - Use for Total Daily Dose of Insulin 15-27 units - Thin, elderly, renal patients LOW DOSING ALGORITHM menthol-zinc oxide [Calmoseptine] 0.44-20.6 % Ointment 1 applic topical 4X/DAY Qty: 0 0RF Protocol: *Topical Application Instructions APPLICATION INSTRUCTIONS: apply to affected region acetaminophen 325 mg Tablet 650 mg PO Q4H PRN PRN (Reason: Fever, pain 1-04/16) Qty: 0 0RF albuterol sulfate 2.5 mg /3 mL (0.083 %) Solution For Nebulization 2.5 mg inhalation Q2H PRN PRN (Reason: Dyspnea, wheezing) Qty: 0 0RF amoxicillin-pot clavulanate 875-125 mg tablet 1 tab PO BID Qty: 14 0RF Continued Eliquis 5 mg tablet 5 mg PO BID aspirin [Adult Low Dose Aspirin] 81 mg tablet,delayed release (DR/EC) 81 mg PO DAILY atorvastatin 40 mg tablet 40 mg PO QHS docusate sodium [Colace] 100 mg capsule 100 mg PO BID cyclobenzaprine 5 mg tablet 5 mg PO BID PRN (Reason: muscle spasms) gabapentin 100 mg capsule 200 mg PO QHS insulin glargine [Lantus Solostar U-100 Insulin] 100 unit/mL (3 mL) insulin pen 10 unit subcut QHS melatonin 3 mg tablet 9 mg PO QHS metoclopramide HCl 5 mg tablet 5 mg PO Q8H PRN (Reason: nausea/vomiting) metoprolol tartrate 25 mg tablet 12.5 mg PO Q12H midodrine 10 mg tablet 10 mg PO 4X/DAY magnesium hydroxide [Milk of Magnesia] 400 mg/5 mL suspension 15 ml PO QHS nitroglycerin 0.4 mg tablet, sublingual 0.4 mg sublingual Q5M PRN (Reason: chest pain) Rx Instructions: do not exceed 3 doses per episode pantoprazole 40 mg tablet,delayed release (DR/EC) 40 mg PO DAILY vitamin B complex-folic acid 50 mcg tablet 1 tab PO DAILY sertraline 25 mg tablet 25 mg PO DAILY midodrine 10 mg tablet 10 mg PO DAILY PRN (Reason: hypotension during dialysis) Referrals / Follow Up: Liudmila Kuhn MD [Primary Care Provider] - Within 1 Week Disposition Disposition (needs filled in before D/C Order can be placed): [facility] Charges/Coding Visit Charges Inpatient E&M: 79509 Disch Hosp >30min
--- NOTE | 2023-03-29 13:17 | CASEMGMT ---
Patient is ready for discharge back to [facility]. Plan: d/c back to [facility] under skilled level of care. Joyce Talamantes MARKETING OPERATIONS CONSULTANT SUPERVISOR VENDOR QUALITY
--- NOTE | 2023-03-29 13:33 | CASEMGMT ---
Discharge Planning Discharge orders, signed med list, and transport time sent to [facility] via [facility]. [facility] will transport patient by cot at 4:30p. Nursing, , patient and her sister updated. Snehal Layton, Discharge Planning Asst.
[2023-03-29] MEDS: 0.9% Saline Lock 10 ML Syringe IV (13:45)
[2023-03-29] MEDS: 0.9% Normal Saline 1,000 ML IV.SOLN. 1000 ML OPERA.SITE (13:45)
[2023-03-29] MEDS: PureFlow B 3K Dialysis Soln 1 BAG 6 BAG PF (13:45)
--- NOTE | 2023-03-29 14:21 | PHA.DC_ITS ---
Pharmacy [facility] has performed discharge medication reconciliation and counseling for this patient. The patient's discharge medication list was reviewed for discrepancies and discrepancies were resolved. The patient was counseled on the following discharge medications and changes in medications for homegoing were reviewed. The Reason for Use, instructions for use, and potential side effects were reviewed for all new medications. The patient's questions regarding all of their medications were answered. 1. Augmentin 875/125 PO BID x 7 days The patient demonstrated some understanding but would benefit from further education and reinforcement. Medications at Discharge Home Medications apixaban 5 mg tablet (Eliquis) 5 mg PO BID afib 03/26/23 aspirin 81 mg tablet,delayed release (Adult Low Dose Aspirin) 81 mg PO DAILY heart health 03/26/23 atorvastatin 40 mg tablet 40 mg PO QHS cholesterol 03/26/23 cyclobenzaprine 5 mg tablet 5 mg PO BID PRN muscle spasms 03/26/23 docusate sodium 100 mg capsule (Colace) 100 mg PO BID constipation 03/26/23 gabapentin 100 mg capsule 200 mg PO QHS neuropathy 03/26/23 insulin glargine 100 unit/mL (3 mL) subcutaneous pen (Lantus Solostar U-100 Insulin) 10 unit subcut QHS diabetes 03/26/23 magnesium hydroxide 400 mg/5 mL oral suspension (Milk of Magnesia) 15 ml PO QHS constipation 03/26/23 melatonin 3 mg tablet 9 mg PO QHS insomnia 03/26/23 metoclopramide HCl 5 mg tablet 5 mg PO Q8H PRN nausea/vomiting 03/26/23 metoprolol tartrate 25 mg tablet 12.5 mg PO Q12H blood pressure 03/26/23 midodrine 10 mg tablet 10 mg PO 4X/DAY blood pressure 03/26/23 midodrine 10 mg tablet 10 mg PO DAILY PRN hypotension during dialysis 03/26/23 nitroglycerin 0.4 mg sublingual tablet 0.4 mg sublingual Q5M PRN chest pain 03/26/23 pantoprazole 40 mg tablet,delayed release 40 mg PO DAILY acid reflux 03/26/23 sertraline 25 mg tablet 25 mg PO DAILY depression 03/26/23 vitamin B complex-folic acid 50 mcg tablet 1 tab PO DAILY supplement 03/26/23 acetaminophen 325 mg tablet 650 mg (2 x 325 mg) PO Q4H PRN PRN Fever, pain 1- 04/16 #0 tabs 03/29/23 albuterol sulfate 2.5 mg/3 mL (0.083 %) solution for nebulization 2.5 mg (3 mL) inhalation Q2H PRN PRN Dyspnea, wheezing #0 mL 03/29/23 aluminum-mag hydroxide-simethicone 400 mg-400 mg-40 mg/5 mL oral susp (Mag-Al Plus Extra Strength) 30 ml PO Q6H PRN PRN Gastric Burning #0 mL 03/29/23 amoxicillin 875 mg-potassium clavulanate 125 mg tablet 1 tab PO BID #14 tabs 03/29/23 insulin lispro 100 unit/mL subcutaneous pen (Humalog KwikPen (U-100) Insulin) See Protocol subcut ACHS #0 mL 03/29/23 menthol 0.44 %-zinc oxide 20.6 % topical ointment (Calmoseptine) 1 applic t opical 4X/DAY #0 grams 03/29/23 miconazole nitrate 2 % topical powder (Desenex) 1 applic topical TID #0 grams 03/29/23
[2023-03-29 19:19] LABS: Bedside Glucose 111 mg/dL (74-106)
== END 2023-03-29 17:36 | disposition skilled nursing facility (03) | DRG 64 ==
LOC: ED 16:04 → PCU 18:54
PROVIDERS: Nurse Practitioner Adult Health; Admitting Provider Family Medicine; Emergency Provider Emergency Medicine; PCP Internal Medicine; Visit Provider Internal Medicine
DX: I63.81 Other cerebral infarction due to occlusion or stenosis of small artery (principal); N18.6 End stage renal disease; J18.9 Pneumonia, unspecified organism; I12.0 Hypertensive chronic kidney disease with stage 5 chronic kidney disease or end stage renal disease; J90 Pleural effusion, not elsewhere classified; D63.1 Anemia in chronic kidney disease; E11.22 Type 2 diabetes mellitus with diabetic chronic kidney disease; E11.65 Type 2 diabetes mellitus with hyperglycemia; I48.0 Paroxysmal atrial fibrillation; Z99.2 Dependence on renal dialysis; F32.A Depression, unspecified; I65.23 Occlusion and stenosis of bilateral carotid arteries; E78.5 Hyperlipidemia, unspecified; K21.9 Gastro-esophageal reflux disease without esophagitis; F41.8 Other specified anxiety disorders; I25.10 Atherosclerotic heart disease of native coronary artery without angina pectoris; Z68.39 Body mass index [BMI] 39.0-39.9, adult; Z79.01 Long term (current) use of anticoagulants; R29.705 NIHSS score 5; Z87.891 Personal history of nicotine dependence; E66.9 Obesity, unspecified
CPT/HCPCS: 36415; 70496; 70498; 70551; 71045; 74230; 80048; 80053; 80061; 82962; 83036; 83735; 84145; 84443; 84484; 85025; 85610; 90937; 92523; 92610; 92611; 93005; 93306; 93880; 94668; 94762; 97110; 97162; 97166; 97802; 99285; J7030; J7050; Q9967; A4216; G0257

== ENCOUNTER 2023-04-01 12:22 | Emergency (ER) | payer MEDICARE, OTHER, SELFPAY ==
[2023-04-01 12:23] VITALS: BP 103/66; PULSE 89; RESP 16; TEMP 36.2; O2SAT 94; BMI 47.5
--- NOTE | 2023-04-01 12:36 | EX.ED.DYSGE1 ---
HPI History of Present Illness Chief Complaint: Weakness Narrative Narrative: History and physical is mildly limited secondary to aphasia from CVA. 77-year-old female presents from [facility] with reported hemoglobin of 6.7. Of note, she was recently admitted to the hospital for CVA, and is on Eliquis. She went to dialysis today, and was found to have a hemoglobin of 6.7. Although she has anemia of chronic disease, in review of her records, it was above 7 prior to discharge 3 days ago. She denies any black stool, or any other symptoms, but once again her history and physical is mildly limited secondary to her aphasia. [facility] Medical History AAA (abdominal aortic aneurysm) Anxiety and depression Aphasia as late effect of cerebrovascular accident Atrial fibrillation Diabetes ESRD (end stage renal disease) on dialysis GERD (gastroesophageal reflux disease) History of CVA (cerebrovascular accident) Obesity Home Medications aspirin 81 mg tablet,delayed release (Adult Low Dose Aspirin) 81 mg PO DAILY heart health 03/26/23 [History Last Taken Unknown] atorvastatin 40 mg tablet 40 mg PO QHS cholesterol 03/26/23 [History Last Taken Unknown] cyclobenzaprine 5 mg tablet 5 mg PO BID PRN muscle spasms 03/26/23 [History Last Taken Unknown] docusate sodium 100 mg capsule (Colace) 100 mg PO BID constipation 03/26/23 [History Last Taken Unknown] gabapentin 100 mg capsule 100 mg PO QHS neuropathy 03/26/23 [History Last Taken Unknown] insulin glargine 100 unit/mL (3 mL) subcutaneous pen (Lantus Solostar U-100 Insulin) 10 unit subcut QHS diabetes 03/26/23 [History Last Taken Unknown] magnesium hydroxide 400 mg/5 mL oral suspension (Milk of Magnesia) 15 ml PO QHS constipation 03/26/23 [History Last Taken Unknown] melatonin 3 mg tablet 9 mg PO QHS insomnia 03/26/23 [History Last Taken Unknown] metoclopramide HCl 5 mg tablet 5 mg PO Q8H PRN nausea/vomiting 03/26/23 [History Last Taken Unknown] metoprolol tartrate 25 mg tablet 12.5 mg PO Q12H blood pressure 03/26/23 [History Last Taken Unknown] midodrine 10 mg tablet 10 mg PO 4X/DAY blood pressure 03/26/23 [History Last Taken Unknown] midodrine 10 mg tablet 10 mg PO DAILY PRN hypotension during dialysis 03/26/23 [History Last Taken Unknown] nitroglycerin 0.4 mg sublingual tablet 0.4 mg sublingual Q5M PRN chest pain 03/26/23 [History Last Taken Unknown] pantoprazole 40 mg tablet,delayed release 40 mg PO DAILY acid reflux 03/26/23 [History Last Taken Unknown] sertraline 25 mg tablet 25 mg PO DAILY depression 03/26/23 [History Last Taken Unknown] vitamin B complex-folic acid 50 mcg tablet 1 tab PO DAILY supplement 03/26/23 [History Last Taken Unknown] acetaminophen 325 mg tablet 650 mg (2 x 325 mg) PO Q4H PRN PRN Fever, pain 1-04/16 #0 tabs 03/29/23 [Rx Last Taken Unknown] albuterol sulfate 2.5 mg/3 mL (0.083 %) solution for nebulization 2.5 mg (3 mL) inhalation Q2H PRN PRN Dyspnea, wheezing #0 mL 03/29/23 [Rx Last Taken Unknown] aluminum-mag hydroxide-simethicone 400 mg-400 mg-40 mg/5 mL oral susp (Mag-Al Plus Extra Strength) 30 ml PO Q6H PRN PRN Gastric Burning #0 mL 03/29/23 [Rx Last Taken Unknown] amoxicillin 875 mg-potassium clavulanate 125 mg tablet 1 tab PO BID #14 tabs 03/29/23 [Rx Last Taken Unknown] insulin lispro 100 unit/mL subcutaneous pen (Humalog KwikPen (U-100) Insulin) See Protocol subcut ACHS #0 mL 03/29/23 [Rx Last Taken Unknown] menthol 0.44 %-zinc oxide 20.6 % topical ointment (Calmoseptine) 1 applic topical 4X/DAY #0 grams 03/29/23 [Rx Last Taken Unknown] miconazole nitrate 2 % topical powder (Desenex) 1 applic topical TID #0 grams 03/29/23 [Rx Last Taken Unknown] Allergy/AdvReac Type Severity Reaction Status Date / Time codeine Allergy Mild PT UNABLE Verified 03/26/23 11:47 TO RESPOND-NEEDS F/U hydrocodone Allergy Mild PT UNABLE Verified 03/26/23 11:47 TO RESPOND-NEEDS F/U tramadol Allergy Mild PT UNABLE Verified 03/26/23 11:47 TO RESPOND-NEEDS F/U Family History Mother Cancer Hypertension Father History of GI bleed Surgical History History of bilateral knee replacement History of foot surgery History of tonsillectomy and adenoidectomy Hx of appendectomy Status post left breast lumpectomy Social History household members: none housing: intermediate Smoking Status: Former smoker alcohol intake: never substance use type: does not use ROS ROS ED ROS Narrative Limited secondary to expressive aphasia. Constitutional: No fever, no chills. HEENT: No sore throat. No neck pain. No loss of vision. No rhinorrhea. Cardiovascular: No chest pain. No palpitations. No pedal edema. Respiratory: No cough, no shortness of breath. Abdominal: No abdominal pain. No nausea. No vomiting. Genitourinary: No dysuria. No hematuria. Musculoskeletal: No myalgias. No arthralgias. Neurologic: No headaches. No dizziness. No lightheadedness. Skin: No rash. No change in color. Psychiatric: No depression. No anxiety. EXAM Physical Exam Narrative Exam Narrative: Afebrile. Vital signs noted. HEENT: Normocephalic. Atraumatic. PERRL, EOMI. Neck soft and supple. No point tenderness or step off. Cardiovascular: Regular rate and rhythm. No murmurs, rubs, or gallops appreciated. Respiratory: No tachypnea. Lungs clear to auscultation bilaterally. Gastrointestinal: Abdomen soft, nontender, with normoactive bowel sounds. No rebound or guarding. Neurological: Awake. Alert. Left-sided facial droop with mild dysarthria and expressive aphasia. Skin: No rash. Normal color. Positive subconjunctival pallor. Musculoskeletal: No pedal edema. Bilateral lower extremities wrapped with Scotty wraps. Const Vital Signs: 04/01/23 12:23 04/01/23 12:29 Temperature 97.1 F L Temperature Source Temporal Pulse Rate 89 Respiratory Rate 16 Respiratory Effort Normal Respiratory Pattern Normal Blood Pressure 103/66 Blood Pressure Mean 78 Pulse Ox 94 Oxygen Delivery Method Nasal Cannula Oxygen Flow Rate (L/min) 2 MDM MDM MDM Narrative Medical decision making narrative: I reviewed the patient's prior records, and she is on Eliquis/apixaban with a history of atrial fibrillation. I will check an occult fecal blood specimen. Additionally, she may have more of a profound anemia of chronic disease from frequent blood draws given her recent hospital stay. I reviewed her laboratory work from today and she indeed did have have a hemoglobin of 6.7. While repeat this I will also obtain a BUN, and she will be typed and crossmatched for 2 units. I reviewed her laboratory work from today and now she actually has hemoglobin of 7.6. I am unsure if the one in the computer from 5:00 this morning was lab error. She has chronic thrombocytopenia of 90 today. I do not feel platelet transfusion is indicated. Review of her BMP shows creatinine elevated at 1.96 consistent with her chronic kidney disease. Patient believes she had completed her dialysis today. Her potassium is actually low at 3.3 even if she only got 2 hours worth, I do feel that she could wait till Saturday to have another dialysis. As her hemoglobin is 7.6 today, I do not feel that she requires transfusion emergently. I discussed patient with her primary care provider, at the intermediate, Dr. Tonio Cordero who agrees with discharge back to the facility for CBC repeat in the next few days. I did perform Hemoccult which is negative. I feel she be discharged safely home with follow-up. I do not feel that she needs observation or admission at this time. Disposition is discharged home in stable condition. History & Record Review Discussion w/independent historian: Patient Additional record(s) reviewed:: Prior inpatient record, Prior ED visit and Prior labs Lab Data Attestation: I reviewed the patient's lab results. Labs: Laboratory Results - last 24 hr 04/01/23 12:45 WBC 11.0 RBC 2.46 L Hgb 7.6 L Hct 25.7 L MCV 104.5 H MCH 30.9 MCHC 29.6 L RDW Std Deviation 63.3 H RDW Coeff of Nathaniel 16.9 H Plt Count 90 L MPV 10.7 Immature Gran % (Auto) 1.900 H Neut % (Auto) 63.6 Lymph % (Auto) 26.0 Mcduffie % (Auto) 6.8 Eos % (Auto) 1.2 Baso % (Auto) 0.5 Absolute Neuts (auto) 7.0 Absolute Lymphs (auto) 2.86 Nucleated RBC % 0 Platelet Estimate SLT DEC Anisocytosis 1+ Sodium 136 Potassium 3.3 L Chloride 99 Carbon Dioxide 20.0 L Anion Gap 17 H BUN 8 Creatinine 1.96 H Estim Creat Clear Calc 19.01 Est GFR (MDRD) Af Amer 32 L Est GFR (MDRD) Non-Af 26 L BUN/Creatinine Ratio 4.1 L Glucose 97 Calcium 7.9 L Blood Type A POSITIVE Antibody Screen NEGATIVE Crossmatch See Detail Management Discussion w/another healthcare provider: PCP (Dr. Tonio Cordero) Discharge Plan Triage Chief Complaint: Weakness ED Provider: Yash Momin Dx/Rx/DC Orders Clinical Impression: History of aphasia, Anemia in chronic kidney disease, ESRD (end stage renal disease) on dialysis, Thrombocytopenia Instructions: Thrombocytopenia, ED Anemia, Type Not Specified (Adult), ED Chronic Kidney Disease (CKD) Prescriptions: No Action aspirin [Adult Low Dose Aspirin] 81 mg tablet,delayed release (DR/EC) 81 mg PO DAILY atorvastatin 40 mg tablet 40 mg PO QHS docusate sodium [Colace] 100 mg capsule 100 mg PO BID cyclobenzaprine 5 mg tablet 5 mg PO BID PRN (Reason: muscle spasms) gabapentin 100 mg capsule 100 mg PO QHS insulin glargine [Lantus Solostar U-100 Insulin] 100 unit/mL (3 mL) insulin pen 10 unit subcut QHS melatonin 3 mg tablet 9 mg PO QHS metoclopramide HCl 5 mg tablet 5 mg PO Q8H PRN (Reason: nausea/vomiting) metoprolol tartrate 25 mg tablet 12.5 mg PO Q12H midodrine 10 mg tablet 10 mg PO 4X/DAY magnesium hydroxide [Milk of Magnesia] 400 mg/5 mL suspension 15 ml PO QHS nitroglycerin 0.4 mg tablet, sublingual 0.4 mg sublingual Q5M PRN (Reason: chest pain) Rx Instructions: do not exceed 3 doses per episode pantoprazole 40 mg tablet,delayed release (DR/EC) 40 mg PO DAILY vitamin B complex-folic acid 50 mcg tablet 1 tab PO DAILY sertraline 25 mg tablet 25 mg PO DAILY midodrine 10 mg tablet 10 mg PO DAILY PRN (Reason: hypotension during dialysis) miconazole nitrate [Desenex] 2 % Powder 1 applic topical TID Qty: 0 0RF Protocol: *Topical Application Instructions APPLICATION INSTRUCTIONS: apply to affected areas alum-mag hydroxide-simeth [Mag-Al Plus Extra Strength] 400-400-40 mg/5 mL Suspension 30 ml PO Q6H PRN PRN (Reason: Gastric Burning) Qty: 0 0RF insulin lispro [Humalog KwikPen Insulin] 100 unit/mL Insulin Pen See Protocol subcut ACHS Qty: 0 0RF Protocol: 1. Sliding Scale Insulin Low Dosing Condition: 150-224 mg/dl = 1 unit Condition: 225-299 mg/dl = 2 units Condition: 300-374 mg/dl = 3 units Condition: 375-499 mg/dl = 4 units Condition: Greater than 449 call physician Protocol Text: - Use for Total Daily Dose of Insulin 15-27 units - Thin, elderly, renal patients LOW DOSING ALGORITHM menthol-zinc oxide [Calmoseptine] 0.44-20.6 % Ointment 1 applic topical 4X/DAY Qty: 0 0RF Protocol: *Topical Application Instructions APPLICATION INSTRUCTIONS: apply to affected region acetaminophen 325 mg Tablet 650 mg PO Q4H PRN PRN (Reason: Fever, pain 1-04/16) Qty: 0 0RF albuterol sulfate 2.5 mg /3 mL (0.083 %) Solution For Nebulization 2.5 mg inhalation Q2H PRN PRN (Reason: Dyspnea, wheezing) Qty: 0 0RF amoxicillin-pot clavulanate 875-125 mg tablet 1 tab PO BID Qty: 14 0RF Primary Care Provider: Tonio Cordero Referrals: Liudmila Kuhn MD [Med Staff - [facility]] - Activity Restrictions/Additional Instructions: Have your hemoglobin rechecked at the next dialysis appointment on Saturday. You may need to have your platelets rechecked as well as they have been low over the last few laboratory values. Disposition Disposition[facility] Discharge Location: [facility]
[2023-04-01 13:00] LABS: Absolute Lymphocyte Count 2.86 X10^3/uL (0.83-4.51); Basophil# 0.05 X10^3/uL; Basophil% 0.5 % (0-1); Eosinophil# 0.13 X10^3/uL; Eosinophils% 1.2 % (0-5); Hematocrit 25.7 % (37-47); Hemoglobin 7.6 g/dL (12.0-15.0); Lymphocyte # 2.86 X10^3/ul (0.83-4.51); Mean Corp Hgb Conc 29.6 g/dL (32-36); Mean Corpuscular Hgb 30.9 pg (27.0-32.0); Mean Corpuscular Volume 104.5 fL (81-99); Mean Platelet Vol. 10.7 fl (6.2-12.0); Monocyte# 0.75 X10^3/uL; Monocyte% 6.8 % (0-10); NRBC Flagged by Analyzer 0 % (0-5); Neutrophil # 7.01 X10^3/uL (2.7-7.7); Neutrophil % 63.6 % (47-70); POSITIVE COUNT YES; POSITIVE MORPHOLOGY YES; Platelet Count 90 K/mm3 (150-450); RBC Distribution Width CV 16.9 % (11.6-14.6); RBC Distribution Width SD 63.3 fl (35.1-43.9); Red Blood Count 2.46 M/mm3 (4.2-5.4)
[2023-04-01 13:01] LABS: Differential Indicated SCAN CRITERIA MET
[2023-04-01 13:10] LABS: Anion Gap 17 (5-15); BUN 8 mg/dL (7-18); BUN/Creat Ratio 4.1 RATIO (10-20); Calcium,Total 7.9 mg/dL (8.5-10.1); Chloride 99 mmol/L (98-107); Creatinine, Serum 1.96 mg/dL (0.55-1.02); EST Glomerular Filtration Rate 26 mL/min (>60); Est Glom Filt Rate - Afr Amer 32 mL/min (>60); Estimated Creatinine Clearance 19.01 ml/min; Glucose 97 mg/dL (74-106); Potassium 3.3 mmol/L (3.5-5.1); Sodium Level 136 mmol/L (136-145)
[2023-04-01 13:20] LABS: Anisocytosis 1+; Platelet Estimate SLT DEC (ADEQ)
[2023-04-01 14:05] VITALS: RESP 20
--- NOTE | 2023-04-01 14:27 | NURSING ---
CALLED ANUJ THOMPSON WITHIN THE HOUR
== END 2023-04-01 16:00 | disposition skilled nursing facility (03) ==
PROVIDERS: Emergency Provider Emergency Medicine; PCP Family Medicine; Visit Provider Emergency Medicine
DX: D69.6 Thrombocytopenia, unspecified (principal); Z99.2 Dependence on renal dialysis; E11.22 Type 2 diabetes mellitus with diabetic chronic kidney disease; N18.6 End stage renal disease; I48.91 Unspecified atrial fibrillation; Z79.4 Long term (current) use of insulin; D63.8 Anemia in other chronic diseases classified elsewhere; Z87.891 Personal history of nicotine dependence; I69.320 Aphasia following cerebral infarction; Z79.01 Long term (current) use of anticoagulants; Z79.899 Other long term (current) drug therapy; K21.9 Gastro-esophageal reflux disease without esophagitis; F41.8 Other specified anxiety disorders; Z96.653 Presence of artificial knee joint, bilateral; Z90.49 Acquired absence of other specified parts of digestive tract
CPT/HCPCS: 80048; 82274; 85025; 86850; 86900; 86901; 86920; 86922; 99285; A4216

== ENCOUNTER → 2023-04-03 | Outpatient (REF) | payer MEDICARE, SELFPAY ==
[2023-04-03 13:58] LABS: Mean Corp Hgb Conc 31.8 g/dL (32-36); Mean Corpuscular Hgb 31.4 pg (27.0-32.0); Mean Corpuscular Volume 98.7 fL (81-99); Mean Platelet Vol. 10.7 fl (6.2-12.0); Platelet Count 105 K/mm3 (150-450); RBC Distribution Width CV 16.5 % (11.6-14.6); RBC Distribution Width SD 58.4 fl (35.1-43.9); Red Blood Count 2.23 M/mm3 (4.2-5.4); White Blood Count 9.3 K/mm3 (4.4-11.0)
[2023-04-03 14:13] LABS: Anion Gap 3 (5-15); BUN 10 mg/dL (7-18); BUN/Creat Ratio 5.6 RATIO (10-20); Calcium,Total 7.9 mg/dL (8.5-10.1); Chloride 99 mmol/L (98-107); Creatinine, Serum 1.77 mg/dL (0.55-1.02); EST Glomerular Filtration Rate 30 mL/min (>60); Est Glom Filt Rate - Afr Amer 36 mL/min (>60); Glucose 96 mg/dL (74-106); Sodium Level 134 mmol/L (136-145)
== END ==
LOC: OLS.SW 13:30
PROVIDERS: PCP Family Medicine; Visit Provider Family Medicine
DX: E11.9 Type 2 diabetes mellitus without complications (principal); R05.9 Cough, unspecified
CPT/HCPCS: 36415; 80048; 85027

== ENCOUNTER 2023-04-05 08:16 | Inpatient (IN) | payer MEDICARE, OTHER, SELFPAY ==
[2023-04-05] VITALS (31 sets, daily range): BP systolic 78–132; BP diastolic 43–97; PULSE 63–85; RESP 14–20; TEMP 35.7–36.4; O2SAT 89–100; BMI 47.0; BMI 45.9
--- NOTE | 2023-04-05 08:27 | EX.ED.DYSGE1 ---
HPI History of Present Illness Chief Complaint: Hypotension Informant: patient and EMS Narrative Narrative: Patient sent for hypotension. She is at [facility], apparently has had a recent decline. Usually on a pur?ed diet but having trouble with that now due to decline and weakness. Has not finished her hemodialysis sessions in the past week although she has gone for them, due to developing hypotension. She is hypotensive now, EMS and nursing report did not indicate how long she has been hypotensive without being on dialysis. She is currently being treated for pneumonia with amoxicillin. She had a stroke and is aphasic chronically, EMS states she is at her baseline there. Paperwork indicates patient is a full code. As far as complaints, patient indicates that she hurts all over but history is extremely limited due to severe expressive aphasia. Her baseline blood pressure is unknown. [facility] Medical History AAA (abdominal aortic aneurysm) Anxiety and depression Aphasia Aphasia as late effect of cerebrovascular accident Atrial fibrillation Diabetes ESRD (end stage renal disease) on dialysis GERD (gastroesophageal reflux disease) History of CVA (cerebrovascular accident) Obesity Other lack of coordination Type 2 diabetes mellitus with hypoglycemia without coma Home Medications aspirin 81 mg tablet,delayed release (Adult Low Dose Aspirin) 81 mg PO DAILY heart health 03/26/23 [History Last Taken Unknown] atorvastatin 40 mg tablet 40 mg PO QHS cholesterol 03/26/23 [History Last Taken Unknown] cyclobenzaprine 5 mg tablet 5 mg PO BID PRN muscle spasms 03/26/23 [History Last Taken Unknown] docusate sodium 100 mg capsule (Colace) 100 mg PO BID constipation 03/26/23 [History Last Taken Unknown] gabapentin 100 mg capsule 100 mg PO QHS neuropathy 03/26/23 [History Last Taken Unknown] insulin glargine 100 unit/mL (3 mL) subcutaneous pen (Lantus Solostar U-100 Insulin) 10 unit subcut QHS diabetes 03/26/23 [History Last Taken Unknown] magnesium hydroxide 400 mg/5 mL oral suspension (Milk of Magnesia) 15 ml PO QHS constipation 03/26/23 [History Last Taken Unknown] melatonin 3 mg tablet 9 mg PO QHS insomnia 03/26/23 [History Last Taken Unknown] metoclopramide HCl 5 mg tablet 5 mg PO Q8H PRN nausea/vomiting 03/26/23 [History Last Taken Unknown] metoprolol tartrate 25 mg tablet 12.5 mg PO Q12H blood pressure 03/26/23 [History Last Taken Unknown] midodrine 10 mg tablet 10 mg PO 4X/DAY blood pressure 03/26/23 [History Last Taken Unknown] midodrine 10 mg tablet 10 mg PO DAILY PRN hypotension during dialysis 03/26/23 [History Last Taken Unknown] nitroglycerin 0.4 mg sublingual tablet 0.4 mg sublingual Q5M PRN chest pain 03/26/23 [History Last Taken Unknown] pantoprazole 40 mg tablet,delayed release 40 mg PO DAILY acid reflux 03/26/23 [History Last Taken Unknown] sertraline 25 mg tablet 25 mg PO DAILY depression 03/26/23 [History Last Taken Unknown] vitamin B complex-folic acid 50 mcg tablet 1 tab PO DAILY supplement 03/26/23 [History Last Taken Unknown] acetaminophen 325 mg tablet 650 mg (2 x 325 mg) PO Q4H PRN PRN Fever, pain 1-04/16 #0 tabs 03/29/23 [Rx Last Taken Unknown] albuterol sulfate 2.5 mg/3 mL (0.083 %) solution for nebulization 2.5 mg (3 mL) inhalation Q2H PRN PRN Dyspnea, wheezing #0 mL 03/29/23 [Rx Last Taken Unknown] aluminum-mag hydroxide-simethicone 400 mg-400 mg-40 mg/5 mL oral susp (Mag-Al Plus Extra Strength) 30 ml PO Q6H PRN PRN Gastric Burning #0 mL 03/29/23 [Rx Last Taken Unknown] amoxicillin 875 mg-potassium clavulanate 125 mg tablet 1 tab PO BID #14 tabs 03/29/23 [Rx Last Taken Unknown] insulin lispro 100 unit/mL subcutaneous pen (Humalog KwikPen (U-100) Insulin) See Protocol subcut ACHS #0 mL 03/29/23 [Rx Last Taken Unknown] menthol 0.44 %-zinc oxide 20.6 % topical ointment (Calmoseptine) 1 applic topical 4X/DAY #0 grams 03/29/23 [Rx Last Taken Unknown] miconazole nitrate 2 % topical powder (Desenex) 1 applic topical TID #0 grams 03/29/23 [Rx Last Taken Unknown] Allergy/AdvReac Type Severity Reaction Status Date / Time codeine Allergy Mild PT UNABLE Verified 04/05/23 08:19 TO RESPOND-NEEDS F/U hydrocodone Allergy Mild PT UNABLE Verified 04/05/23 08:19 TO RESPOND-NEEDS F/U tramadol Allergy Mild PT UNABLE Verified 04/05/23 08:19 TO RESPOND-NEEDS F/U Family History Mother Cancer Hypertension Father History of GI bleed Surgical History History of bilateral knee replacement History of foot surgery History of tonsillectomy and adenoidectomy Hx of appendectomy Status post left breast lumpectomy Social History household members: none housing: half-way Smoking Status: Former smoker alcohol intake: never substance use type: does not use ROS ROS ED Constitutional Constitutional ED: Reports body ache(s) and weakness Respiratory/Chest Respiratory/Chest: Reports other Details: Admits to dyspnea, admits to it not being significant right now Musculoskeletal Musculoskeletal: Reports myalgias Neurologic Neurologic: Reports as per HPI and abnormal speech EXAM Physical Exam Const Vital Signs: 04/05/23 08:19 04/05/23 08:26 04/05/23 08:44 Temperature 97.3 F L 97.3 F L Temperature Source Temporal Temporal Pulse Rate 82 79 Respiratory Rate 20 H 20 H Blood Pressure 85/46 L 85/46 L Blood Pressure Mean 59 59 Pulse Ox 98 98 95 Oxygen Delivery Method Nasal Cannula Nasal Cannula Nasal Cannula Oxygen Flow Rate (L/min) 2 2 2 04/05/23 08:52 04/05/23 10:15 04/05/23 10:28 Temperature Temperature Source Pulse Rate 85 79 76 Respiratory Rate 15 20 H Blood Pressure 86/49 L 78/43 L 112/48 L Blood Pressure Mean 61 54 69 Pulse Ox 98 91 89 Oxygen Delivery Method Nasal Cannula Room Air Oxygen Flow Rate (L/min) 04/05/23 10:32 04/05/23 10:43 Temperature 97.2 F L Temperature Source Temporal Pulse Rate 74 Respiratory Rate 17 Blood Pressure 109/48 L 122/78 H Blood Pressure Mean 68 92 Pulse Ox 91 Oxygen Delivery Method Nasal Cannula Oxygen Flow Rate (L/min) 2 Positive well nourished, well developed and obese General Appearance ED: well developed and NAD Nutritional Appearance: obese HEENT Reports moist mucous membranes normocephalic and atraumatic Eyes PERRL and EOMs intact bilaterally Neck full ROM and supple Resp normal respiratory effort Resp Narrative: Left crackles. Breathing easily without accessory muscle use. Cardio no murmurs Rate: Negative for tachycardic Rhythm: abnormal rhythm irregularly irregular GI non-tender and non-distended Auscultation: normoactive bowel sounds Palpation: soft Back/Spine no CVA tenderness General Back: other FROM Extremity normal to inspection General Extremety ED: Yes edema; Negative for pulses abnormal or tenderness General Extremity: edema bilateral lower extremity Details: moderate (Without signs of cellulitis/lesion); Negative for pulses abnormal Neuro CN's II-XII intact bilaterally and no sensory deficits noted Neuro Narrative: Patient cannot lift any of her extremities against gravity. She moves them all distally. Dense expressive aphasia, tries to make out some words but very difficult to understand. Sensorium / Orientation: awake and alert Motor Exam: general weakness Skin no rashes or lesions noted and no wounds Sepsis Attestation Sepsis Alert: Yes Sepsis Attestation: Agree w/Sepsis Date exam was performed: 04/05/23 Time exam was performed: 09:30 Possible Source of Sepsis: Pulmonary and Genitourinary Sepsis Organ Dysfunction Criteria Present: SBP < 90 mmHg or MAP < 65 mmHg and Creatinine > 2.0 mg/dL Fluid Resuscitation Fluid resuscitation indicated?: Yes Fluid Resuscitation ordered: Lesser volume fluid bolus ordered Amount of fluid ordered: 500 Reason for lesser fluid bolus:: Concern for fluid overload, Heart failure and Renal Failure Sepsis Note Date exam was performed: 04/05/23 Time exam was performed: 10:00 Sepsis Attestation: Sepsis re-evaluation was performed Response to fluids: Vasopressors started MDM MDM MDM Narrative Medical decision making narrative: While working the patient up she was initially given 500 cc IV fluid bolus, her pressure came up temporarily to 93, but went back down to 80s/40s with a MAP of 59 after the fluid was completed so central line was placed, and she was started on Levophed. Has a leukocytosis, pneumonia appears worse, septic treatment order set placed using Zosyn and vancomycin giving from nursing facility, lactate only 1.6, clinically we have her off of oxygen and she is between 89-93% with an ABG showing a PO2 of 73 and a pH is 7.5. With the Levophed 5 mics, her systolic pressure came up nicely to 120, so nursing will attempt to wean down as tolerated. Given her pressure will admit to the ICU. Her urine shows signs of infection this was sent for culture. [place] was placed to watch input and output. Her hemoglobin is 7.2, this is similar to baseline. Ordinarily I would not transfuse her because of lack of clinical signs of blood loss and similar to prior, however given her condition, I believe transfusing her with blood is indicated. No family available to discuss this with, I believe the benefits outweigh the potential risks in this patient given her condition, she is not able to consent. History & Record Review Discussion w/independent historian: EMS personnel, Patient and Other (SNF staff via RN report) Additional record(s) reviewed:: Prior outpatient record (recent prior echo EF 50%), Prior ED visit (Here 4 days ago for anemia that was borderline but higher upon arrival to ER so transfusion was considered but not performed) and Prior labs Lab Data Attestation: I reviewed the patient's lab results. Labs: Laboratory Results - last 24 hr 04/05/23 04/05/23 04/05/23 08:30 08:36 08:45 WBC 17.1 H RBC 2.30 L Hgb 7.2 L Hct 22.3 L MCV 97.0 MCH 31.3 MCHC 32.3 RDW Std Deviation 58.3 H RDW Coeff of Nathaniel 16.8 H Plt Count 138 L MPV 10.8 Immature Gran % (Auto) 1.500 H Neut % (Auto) 79.0 H Lymph % (Auto) 14.3 L Summers % (Auto) 4.9 Eos % (Auto) 0.1 Baso % (Auto) 0.2 Absolute Neuts (auto) 13.5 H Absolute Lymphs (auto) 2.45 Nucleated RBC % 0.1 PT 22.7 H INR 2.0 APTT 49.0 H Sodium 135 L Potassium 3.5 Chloride 100 Carbon Dioxide 33.0 H Anion Gap 2 L BUN 15 Creatinine 2.29 H Estim Creat Clear Calc 16.27 Est GFR (MDRD) Af Amer 27 L Est GFR (MDRD) Non-Af 22 L BUN/Creatinine Ratio 6.6 L Glucose 58 L Lactic Acid 1.6 Calcium 7.2 L Total Bilirubin 0.20 AST 127 H ALT 74 H Alkaline Phosphatase 172 H Troponin I High Sens 26 Total Protein 4.9 L Albumin 1.0 L Globulin 3.9 Albumin/Globulin Ratio 0.3 L Urine Color Inez Urine Clarity Sl. Cloudy Urine pH 5.0 Ur Specific [place] 1.015 Urine Protein 100 H Urine Glucose (UA) Normal Urine Ketones 5 H Urine Occult Blood 50 H Urine Nitrite Negative Urine Bilirubin 1 H Urine Urobilinogen 1 H Ur Leukocyte Esterase 500 H Urine RBC 0 SEEN Urine WBC >100 SEEN Ur Squamous Epith Cells 0-5 SEEN Urine Bacteria RARE Hyaline Casts 0-5 SEEN Urine Mucus 0 SEEN Blood Type A POSITIVE Antibody Screen NEGATIVE Crossmatch See Detail Chronic thrombocytopenia improved. Chronic anemia stable. Acute leukocytosis. Chronic renal failure with stable electrolyte levels. Normal troponin. Slightly elevated liver enzymes nonspecific, normal bilirubin, very low albumin 1.0. ABG Data ABG results: ABG 04/05/23 09:51 Specimen Type ART Sample Site L Radial pH 7.54 H Bicarbonate Actual 30.6 H Total CO2 32 Base Excess 8 H O2 Saturation 96 ABG pCO2 36.2 ABG pO2 74 L Toan Test Positive O2 Delivery Device Room Air Vent Mode Not entered Radiography Diagnostic Testing: Clinical Impression(s) from Imaging Studies Chest X-Ray 04/05/23 09:43 IMPRESSION: Persistent left lower lobe infiltrate with small left pleural effusion. New left upper lobe infiltrate. Electronically Signed: Baltazar Brito MD at 10:12 EDT , Rhythm Strip Rhythm Strip: Sinus Rhythm Rate: 85 Ectopy: None EKG Initial EKG: Attestation: I personally reviewed and interpreted this EKG as follows: Interpretation: Sinus Rhythm, No Acute Injury Pattern, AV Block (1st deg) and Non-Specific ST Changes Management Discussion w/another healthcare provider: Hospitalist Procedures Other Procedures Procedure(s): Central line placement: As patient is unable to provide informed consent, it was assumed given the risk/benefit ratio given that the patient appears to be shocky. Given that she has a dialysis catheter tunneled in the right chest wall, it was elected to place central line in the right femoral vein. The site was prepped with chlorhexidine, and prior to this the area was cleaned of infection/yeast, there was a light layer of powder that was cleansed off, nursing assisted by holding back tissue. Locally anesthetized with 2 cc of plain 1% lidocaine, without injecting into the vessel, ultrasound assisted, verifying medial placement of nonpulsatile femoral vein, and finding with finder needle under ultrasound guidance dark red nonpulsatile blood. Via modified Seldinger technique, 20 cm triple-lumen catheter was placed in the vessel without difficulty, guidewire threaded without any difficulty as well. All 3 ports kirill back dark red nonpulsatile blood and flushed without difficulty, sutured in place with chlorhexidine disc and sterile dressing. Tolerated well with no complications. Critical Care Time Critical Care Time: Yes Critical care time (excluding procedures): 30-74 minutes (35 min, not including procedure time), Including time spent:, Discussing w/Patient &/or Family/Inseamer, Discussing w/Consultants, Arranging Admission or Transfer and Performing Direct Patient Care at Bedside Discharge Plan Triage Chief Complaint: Hypotension Other Complaint: General Illness ED Provider: Darryl Ndiaye Dx/Rx/DC Orders Clinical Impression: Septic shock, ESRD (end stage renal disease) on dialysis, Anemia in chronic kidney disease, History of aphasia, HCAP (healthcare-associated pneumonia), Failure of outpatient treatment, Parapneumonic effusion, Thrombocytopenia, Hypoalbuminemia Prescriptions: No Action aspirin [Adult Low Dose Aspirin] 81 mg tablet,delayed release (DR/EC) 81 mg PO DAILY atorvastatin 40 mg tablet 40 mg PO QHS docusate sodium [Colace] 100 mg capsule 100 mg PO BID cyclobenzaprine 5 mg tablet 5 mg PO BID PRN (Reason: muscle spasms) gabapentin 100 mg capsule 100 mg PO QHS insulin glargine [Lantus Solostar U-100 Insulin] 100 unit/mL (3 mL) insulin pen 10 unit subcut QHS melatonin 3 mg tablet 9 mg PO QHS metoclopramide HCl 5 mg tablet 5 mg PO Q8H PRN (Reason: nausea/vomiting) metoprolol tartrate 25 mg tablet 12.5 mg PO Q12H midodrine 10 mg tablet 10 mg PO 4X/DAY magnesium hydroxide [Milk of Magnesia] 400 mg/5 mL suspension 15 ml PO QHS nitroglycerin 0.4 mg tablet, sublingual 0.4 mg sublingual Q5M PRN (Reason: chest pain) Rx Instructions: do not exceed 3 doses per episode pantoprazole 40 mg tablet,delayed release (DR/EC) 40 mg PO DAILY vitamin B complex-folic acid 50 mcg tablet 1 tab PO DAILY sertraline 25 mg tablet 25 mg PO DAILY midodrine 10 mg tablet 10 mg PO DAILY PRN (Reason: hypotension during dialysis) miconazole nitrate [Desenex] 2 % Powder 1 applic topical TID Qty: 0 0RF Protocol: *Topical Application Instructions APPLICATION INSTRUCTIONS: apply to affected areas alum-mag hydroxide-simeth [Mag-Al Plus Extra Strength] 400-400-40 mg/5 mL Suspension 30 ml PO Q6H PRN PRN (Reason: Gastric Burning) Qty: 0 0RF insulin lispro [Humalog KwikPen Insulin] 100 unit/mL Insulin Pen See Protocol subcut ACHS Qty: 0 0RF Protocol: 1. Sliding Scale Insulin Low Dosing Condition: 150-224 mg/dl = 1 unit Condition: 225-299 mg/dl = 2 units Condition: 300-374 mg/dl = 3 units Condition: 375-499 mg/dl = 4 units Condition: Greater than 449 call physician Protocol Text: - Use for Total Daily Dose of Insulin 15-27 units - Thin, elderly, renal patients LOW DOSING ALGORITHM menthol-zinc oxide [Calmoseptine] 0.44-20.6 % Ointment 1 applic topical 4X/DAY Qty: 0 0RF Protocol: *Topical Application Instructions APPLICATION INSTRUCTIONS: apply to affected region acetaminophen 325 mg Tablet 650 mg PO Q4H PRN PRN (Reason: Fever, pain 1-04/16) Qty: 0 0RF albuterol sulfate 2.5 mg /3 mL (0.083 %) Solution For Nebulization 2.5 mg inhalation Q2H PRN PRN (Reason: Dyspnea, wheezing) Qty: 0 0RF amoxicillin-pot clavulanate 875-125 mg tablet 1 tab PO BID Qty: 14 0RF Primary Care Provider: Tonio Cordero Referrals: Tonio Cordero MD [Primary Care Provider] - Disposition Disposition: Acute Care [facility]
[2023-04-05 08:43] LABS: Absolute Lymphocyte Count 2.45 X10^3/uL (0.83-4.51); Absolute Neutrophil Count 13.5 X10^3/uL (2.0-7.7); Basophil# 0.04 X10^3/uL; Basophil% 0.2 % (0-1); Eosinophil# 0.01 X10^3/uL; Eosinophils% 0.1 % (0-5); Hematocrit 22.3 % (37-47); Hemoglobin 7.2 g/dL (12.0-15.0); Lymphocyte # 2.45 X10^3/ul (0.83-4.51); Lymphocyte % 14.3 % (19-41); Mean Corp Hgb Conc 32.3 g/dL (32-36); Mean Corpuscular Hgb 31.3 pg (27.0-32.0); Mean Platelet Vol. 10.8 fl (6.2-12.0); Monocyte# 0.83 X10^3/uL; Monocyte% 4.9 % (0-10); NRBC Flagged by Analyzer 0.1 % (0-5); Neutrophil # 13.51 X10^3/uL (2.7-7.7); Platelet Count 138 K/mm3 (150-450); RBC Distribution Width CV 16.8 % (11.6-14.6); RBC Distribution Width SD 58.3 fl (35.1-43.9); White Blood Count 17.1 K/mm3 (4.4-11.0)
[2023-04-05 08:52] LABS: Mucous, Urine 0 SEEN /hpf (<or=2+); Red Blood Cells-Urine 0 SEEN /hpf (0-5)
[2023-04-05 08:53] LABS: Color, Urine Amber (Yellow); Glucose, Dipstick Normal (Normal); Ketone-Dipstick 5 mg/dl (Negative); Leukocyte Esterase-Dipstick 500 /ul (Negative); Nitrite-Dipstick Negative (Negative); Occult Blood-Urine 50 /ul (Negative); Protein-Dipstick 100 mg/dl (Negative); Specific Gravity, Urine 1.015 (1.002-1.030); Urine Clarity Sl. Cloudy (Clear); Urine Urobilinogen 1 mg/dl (Normal)
[2023-04-05 08:58] LABS: Urine Bilirubin Dipstick 1 mg/dL (Negative)
[2023-04-05 08:59] LABS: Prothrombin Time (Protime)PT. 22.7 SECONDS (11.7-14.9)
[2023-04-05 08:59] LABS: Bacteria RARE /hpf (None Seen); Hyaline Cast 0-5 SEEN /lpf (0-5); Squamous Epithelial Cells - UA 0-5 SEEN /hpf (5-10); White Blood Cells >100 SEEN /hpf (0-5)
[2023-04-05 09:04] LABS: ALB/GLOB Ratio 0.3 RATIO (0.9-2.4); AST(SGOT) 127 U/L (15-37); Alanine Aminotransfer ALT/SGPT 74 U/L (13-56); Alkaline Phosphatase 172 U/L (45-117); Anion Gap 2 (5-15); BUN 15 mg/dL (7-18); BUN/Creat Ratio 6.6 RATIO (10-20); Calcium,Total 7.2 mg/dL (8.5-10.1); Chloride 100 mmol/L (98-107); Creatinine, Serum 2.29 mg/dL (0.55-1.02); EST Glomerular Filtration Rate 22 mL/min (>60); Est Glom Filt Rate - Afr Amer 27 mL/min (>60); Estimated Creatinine Clearance 16.27 ml/min; Globulin 3.9 g/dL (2.2-4.2); Glucose 58 mg/dL (74-106); Potassium 3.5 mmol/L (3.5-5.1); Protein, Total 4.9 g/dL (6.4-8.2); Sodium Level 135 mmol/L (136-145); Troponin-I HS 26 pg/mL (3.0-54.0)
[2023-04-05 09:07] LABS: Lactic Acid 1.6 mmol/L (0.4-1.9)
[2023-04-05] MEDS: 0.9% Normal Saline (500mL Bag) 500 ML 999 ML IV (09:11)
--- NOTE | 2023-04-05 09:43 | RAD_ITS ---
STUDY: X-RAY CHEST REASON FOR EXAM: Female, 77 years old. Eval progression of pneumonia TECHNIQUE: Single AP portable view of the chest. COMPARISON: Comparison is made with prior study dated March 27, 2023. FINDINGS: A right-sided double lumen catheter seen with the tip in the right atrium. Persistent left lower lobe infiltrate with blunting of the left costophrenic angle. New left upper lobe infiltrate. Normal size heart. Normal mediastinum and ezequiel. Normal visualized pulmonary arteries. There is atherosclerotic calcification of the aortic arch with tortuosity. There are diffuse degenerative changes of the visualized thoracic spine. Normal visualized ribs, clavicles, and shoulders. There is no demonstrated abnormality of the visualized soft tissue structures of the upper abdomen. RAD/Chest 1 View (Portable) IMPRESSION: Persistent left lower lobe infiltrate with small left pleural effusion. New left upper lobe infiltrate. Electronically Signed: Baltazar Brito MD at 10:12 EDT ,
[2023-04-05 09:55] LABS: Allen Test Positive; Base Excess 8 mmol/L (-2 to +2); Bicarbonate 30.6 mmol/L (22-26); Blood Gas Specimen Type ART; Mode Not entered; O2 Delivery Device Room Air; PO2 74 mmHG (75-100); SITE L Radial; SO2 96 % (95-99); Total Carbon Dioxide 32 mmol/L; pCO2 36.2 mmHg (35-45); pH 7.54 (7.35-7.45)
[2023-04-05] MEDS: Norepinephrine 8 MG in 0.9% Normal Saline (250mL Bag) 242 ML 9.4 MG CONT INF (10:15)
[2023-04-05] MEDS: Vancomycin HCl 2,000 MG in 0.9% Normal Saline (500mL Bag) 500 ML 250 MG IV (11:26)
--- NOTE | 2023-04-05 12:32 | PCM.HP.STD ---
HPI - General General Date of Admission: 04/05/23 Date of Service: 04/05/23 Chief Complaint: hypotension HPI Narrative APRIL ORDONEZ, is a 77 F who presents with hypotension. Patient has been hypertensive for a while. Recently diagnosed with pneumonia and received amoxicillin. Patient continued to be hypotensive and was unable to have dialysis and sent to the emergency room. Patient was notably hypotensive and had a femoral triple-lumen catheter placed and patient was started on norepinephrine. Chest x-ray was concerning for pneumonia patient has received piperacillin/tazobactam and vancomycin. Patient is aphasic and only able to mumble a few words but is rather unintelligible. [facility] Medical History AAA (abdominal aortic aneurysm) Anxiety and depression Aphasia Aphasia as late effect of cerebrovascular accident Atrial fibrillation Diabetes ESRD (end stage renal disease) on dialysis GERD (gastroesophageal reflux disease) History of CVA (cerebrovascular accident) Obesity Other lack of coordination Type 2 diabetes mellitus with hypoglycemia without coma Home Medications aspirin 81 mg tablet,delayed release (Adult Low Dose Aspirin) 81 mg PO DAILY heart health 03/26/23 [History Last Taken Unknown] atorvastatin 40 mg tablet 40 mg PO QHS cholesterol 03/26/23 [History Last Taken Unknown] cyclobenzaprine 5 mg tablet 5 mg PO BID PRN muscle spasms 03/26/23 [History Last Taken Unknown] docusate sodium 100 mg capsule (Colace) 100 mg PO BID constipation 03/26/23 [History Last Taken Unknown] gabapentin 100 mg capsule 100 mg PO QHS neuropathy 03/26/23 [History Last Taken Unknown] insulin glargine 100 unit/mL (3 mL) subcutaneous pen (Lantus Solostar U-100 Insulin) 10 unit subcut QHS diabetes 03/26/23 [History Last Taken Unknown] magnesium hydroxide 400 mg/5 mL oral suspension (Milk of Magnesia) 15 ml PO QHS constipation 03/26/23 [History Last Taken Unknown] melatonin 3 mg tablet 9 mg PO QHS insomnia 03/26/23 [History Last Taken Unknown] metoclopramide HCl 5 mg tablet 5 mg PO Q8H PRN nausea/vomiting 03/26/23 [History Last Taken Unknown] metoprolol tartrate 25 mg tablet 12.5 mg PO Q12H blood pressure 03/26/23 [History Last Taken Unknown] midodrine 10 mg tablet 10 mg PO 4X/DAY blood pressure 03/26/23 [History Last Taken Unknown] midodrine 10 mg tablet 10 mg PO DAILY PRN hypotension during dialysis 03/26/23 [History Last Taken Unknown] nitroglycerin 0.4 mg sublingual tablet 0.4 mg sublingual Q5M PRN chest pain 03/26/23 [History Last Taken Unknown] pantoprazole 40 mg tablet,delayed release 40 mg PO DAILY acid reflux 03/26/23 [History Last Taken Unknown] sertraline 25 mg tablet 25 mg PO DAILY depression 03/26/23 [History Last Taken Unknown] vitamin B complex-folic acid 50 mcg tablet 1 tab PO DAILY supplement 03/26/23 [History Last Taken Unknown] acetaminophen 325 mg tablet 650 mg (2 x 325 mg) PO Q4H PRN PRN Fever, pain 1-04/16 #0 tabs 03/29/23 [Rx Last Taken Unknown] albuterol sulfate 2.5 mg/3 mL (0.083 %) solution for nebulization 2.5 mg (3 mL) inhalation Q2H PRN PRN Dyspnea, wheezing #0 mL 03/29/23 [Rx Last Taken Unknown] aluminum-mag hydroxide-simethicone 400 mg-400 mg-40 mg/5 mL oral susp (Mag-Al Plus Extra Strength) 30 ml PO Q6H PRN PRN Gastric Burning #0 mL 03/29/23 [Rx Last Taken Unknown] amoxicillin 875 mg-potassium clavulanate 125 mg tablet 1 tab PO BID #14 tabs 03/29/23 [Rx Last Taken Unknown] insulin lispro 100 unit/mL subcutaneous pen (Humalog KwikPen (U-100) Insulin) See Protocol subcut ACHS #0 mL 03/29/23 [Rx Last Taken Unknown] menthol 0.44 %-zinc oxide 20.6 % topical ointment (Calmoseptine) 1 applic topical 4X/DAY #0 grams 03/29/23 [Rx Last Taken Unknown] miconazole nitrate 2 % topical powder (Desenex) 1 applic topical TID #0 grams 03/29/23 [Rx Last Taken Unknown] Allergy/AdvReac Type Severity Reaction Status Date / Time codeine Allergy Mild PT UNABLE Verified 04/05/23 08:19 TO RESPOND-NEEDS F/U hydrocodone Allergy Mild PT UNABLE Verified 04/05/23 08:19 TO RESPOND-NEEDS F/U tramadol Allergy Mild PT UNABLE Verified 04/05/23 08:19 TO RESPOND-NEEDS F/U Family History Mother Cancer Hypertension Father History of GI bleed Surgical History History of bilateral knee replacement History of foot surgery History of tonsillectomy and adenoidectomy Hx of appendectomy Status post left breast lumpectomy Social History household members: none housing: senior care Smoking Status: Former smoker alcohol intake: never substance use type: does not use ROS ROS Narrative All review of systems were negative except as mentioned above in the history of present illness and the other review of systems. Vital Signs Vital Signs Vital Signs: 04/05/23 08:19 04/05/23 08:26 04/05/23 08:44 Temperature 36.3 C L 36.3 C L Temperature Source Temporal Temporal Pulse Rate 82 79 Respiratory Rate 20 H 20 H Blood Pressure 85/46 L 85/46 L Blood Pressure Mean 59 59 Blood Pressure Source Blood Pressure Position Pulse Ox 98 98 95 Oxygen Delivery Method Nasal Cannula Nasal Cannula Nasal Cannula Oxygen Flow Rate (L/min) 2 2 2 04/05/23 08:52 04/05/23 10:15 04/05/23 10:28 Temperature Temperature Source Pulse Rate 85 79 76 Respiratory Rate 15 20 H Blood Pressure 86/49 L 78/43 L 112/48 L Blood Pressure Mean 61 54 69 Blood Pressure Source Blood Pressure Position Pulse Ox 98 91 89 Oxygen Delivery Method Nasal Cannula Room Air Oxygen Flow Rate (L/min) 04/05/23 10:32 04/05/23 10:43 04/05/23 11:31 Temperature 36.2 C L 36.0 C L Temperature Source Temporal Temporal Pulse Rate 74 79 Respiratory Rate 17 18 Blood Pressure 109/48 L 122/78 H 119/97 H Blood Pressure Mean 68 92 104 Blood Pressure Source Monitor Blood Pressure Position Supine Pulse Ox 91 98 Oxygen Delivery Method Nasal Cannula Nasal Cannula Oxygen Flow Rate (L/min) 2 2 04/05/23 11:46 04/05/23 11:55 Temperature 36.2 C L 35.7 C L Temperature Source Temporal Temporal Pulse Rate 78 79 Respiratory Rate 15 17 Blood Pressure 121/74 H 132/54 H Blood Pressure Mean 89 80 Blood Pressure Source Blood Pressure Position Pulse Ox 98 98 Oxygen Delivery Method Nasal Cannula Oxygen Flow Rate (L/min) Weight Weight: 116.6 kg Body Mass Index (BMI) 47.0 Physical Exam Const Constitutional Narrative: Awake. Follows commands. Mumbles incoherently some words. HEENT normocephalic and head/scalp atraumatic Eyes Eyes Narrative: Glasses. No icterus. Resp Resp Narrative: Coarse breath sounds bilaterally Cardio regular rate, regular rhythm, S1 normal heart sound and S2 normal heart sound GI normal to inspection, nondistended, normoactive bowel sounds, soft to palpation, non-tender and non-distended Extremity Extremity Narrative: Edema. Neuro moves all extremities Results Lab / Micro Data Attestation: I reviewed the patient's lab results. 04/05/23 08:30 04/05/23 08:30 Labs: Laboratory Results - last 24 hr 04/05/23 08:30: WBC 17.1 H, RBC 2.30 L, Hgb 7.2 L, Hct 22.3 L, MCV 97.0, MCH 31.3, MCHC 32.3, RDW Std Deviation 58.3 H, RDW Coeff of Nathaniel 16.8 H, Plt Count 138 L, MPV 10.8, Immature Gran % (Auto) 1.500 H, Neut % (Auto) 79.0 H, Lymph % (Auto) 14.3 L, [place] % (Auto) 4.9, Eos % (Auto) 0.1, Baso % (Auto) 0.2, Absolute Neuts (auto) 13.5 H, Absolute Lymphs (auto) 2.45, Nucleated RBC % 0.1, PT 22.7 H, INR 2.0, APTT 49.0 H, Sodium 135 L, Potassium 3.5, Chloride 100, Carbon Dioxide 33.0 H, Anion Gap 2 L, BUN 15, Creatinine 2.29 H, Estim Creat Clear Calc 16.27, Est GFR (MDRD) Af Amer 27 L, Est GFR (MDRD) Non-Af 22 L, BUN/Creatinine Ratio 6.6 L, Glucose 58 L, Lactic Acid 1.6, Calcium 7.2 L, Total Bilirubin 0.20, AST 127 H, ALT 74 H, Alkaline Phosphatase 172 H, Troponin I High Sens 26, Total Protein 4.9 L, Albumin 1.0 L, Globulin 3.9, Albumin/Globulin Ratio 0.3 L 04/05/23 08:36: Blood Type A POSITIVE, Antibody Screen NEGATIVE, Crossmatch See Detail 04/05/23 08:45: Urine Color Inez, Urine Clarity Sl. Cloudy, Urine pH 5.0, Ur Specific [place] 1.015, Urine Protein 100 H, Urine Glucose (UA) Normal, Urine Ketones 5 H, Urine Occult Blood 50 H, Urine Nitrite Negative, Urine Bilirubin 1 H, Urine Urobilinogen 1 H, Ur Leukocyte Esterase 500 H, Urine RBC 0 SEEN, Urine WBC >100 SEEN, Ur Squamous Epith Cells 0-5 SEEN, Urine Bacteria RARE, Hyaline Casts 0-5 SEEN, Urine Mucus 0 SEEN Micro: Microbiology 04/05/23 08:30 Nasal Secretion SARS-CoV-2 Antigen (Rapid) - Final SARS-CoV-2 (COVID 19) ABG Data ABG results: ABG 04/05/23 09:51 Specimen Type ART Sample Site L Radial pH 7.54 H Bicarbonate Actual 30.6 H Total CO2 32 Base Excess 8 H O2 Saturation 96 ABG pCO2 36.2 ABG pO2 74 L Toan Test Positive O2 Delivery Device Room Air Vent Mode Not entered Rhythm Strip Rhythm Strip: Sinus Rhythm Rate: 85 Ectopy: None Radiology Impression Chest X-Ray 04/05/23 09:43 IMPRESSION: Persistent left lower lobe infiltrate with small left pleural effusion. New left upper lobe infiltrate. Electronically Signed: Baltazar Brito MD at 10:12 EDT , Assessment & Plan Assessment/Plan (1) Septic shock: PLAN: 2/2 Pneumonia +/- UTI plus minus COVID-19 Received piperacillin/tazobactam and vancomycin in the emergency room and will continue on the floor. Follow-up cultures Complicated by chronic hypotension. Continue midodrine. [facility] consult (2) Pneumonia: QUALIFIERS: Pneumonia type: due to unspecified organism Laterality: left Lung location: lower lobe of lung Qualified Code(s): J18.9 - Pneumonia, unspecified organism PLAN: Suspected gram-negative Pulmonary toilet Broad-spectrum antibiotics Check strep and legionella antigen. Check Scx. (3) COVID-19: PLAN: Unclear time of onset. Chronically on oxygen. Isolation for 10 days. (4) Anemia: QUALIFIERS: Anemia type: unspecified type Qualified Code(s): D64.9 - Anemia, unspecified PLAN: chronic. transfused 1 unit PRBC monitor PLAN: Plan Chronic conditions: ESRD: on HD. Consult nephrology for input. DM2: continue glarigine and SSI CVA: aphasic. PT OT ST. continue ASA and atorvastatin. Dysphagia: Chronic. Patient continue with mechanical soft diet. Speech therapy. VTE prophylaxis: SCDs Advance care planning: Spent an additional 20 minutes. Discussed with the patient's sister, Yoanna Marie, #[phone]. Asked about CODE STATUS with her. She states that the patient is full code. I recommended DNR Comfort Care arrest. She is in agreement but would want to speak to additional family members before committing to that. So patient will remain full code. Charges/Coding Visit Charges Inpatient E&M: 93809 Init Hosp L3
[2023-04-05] MEDS: Piperacil/Tazobactam 4.5 GM in 0.9% Normal Saline (100mL MB+) 100 ML IV (13:17)
--- NOTE | 2023-04-05 14:04 | EX.PCM.CONCC ---
Assessment & Plan Assessment/Plan (1) Pneumonia: QUALIFIERS: Pneumonia type: due to unspecified organism Laterality: left Lung location: lower lobe of lung Qualified Code(s): J18.9 - Pneumonia, unspecified organism (2) Septic shock: (3) Hypoalbuminemia: (4) ESRD (end stage renal disease) on dialysis: PLAN: Plan RECOMMENDATIONS: 1. Continue antibiotics pending cultures 2. Be sure one of the cultures is from the dialysis port 3. Add Decadron. No Remdesivir for COVID-19 4. Increase glargine given need for Decadron 5. Wean oxygen as tolerated IMPRESSIONS: 1. Septic shock secondary to UTI versus pneumonia Patient does have a significant infiltrate on chest x-ray. Patient also has an associated effusion. Unclear if effusion is secondary to a transudate nature such as renal failure and hypoalbuminemia versus parapneumonic effusion. Patient is on broad-spectrum antibiotics. Patient is also been diagnosed with COVID-19, but this is likely not accounting for patient's hypotension. Patient does have a chronic indwelling hemodialysis catheter, but this appears well clinically. Continue broad-spectrum antibiotics pending cultures. Unclear if patient may have an element of adrenal insufficiency also contributing to overall condition. Continue midodrine 2. Acute hypoxic respiratory insufficiency Patient is requiring nasal cannula oxygen at this time. It is unclear on onset of COVID-19, but this may be adding to patient's overall condition. Patient does have a habitus consistent with possible sleep apnea. May need to initiate BiPAP with sleep. Patient also has a history of stroke, which also increases her risk for sleep apnea complications. 3. ESRD/DM2/CVA/dysphagia/morbid obesity/advanced age/aphasia Complicates care, management, recovery and prognosis. Will likely need increased basal insulin given need for steroids. As mentioned previously, will need to watch for complications of sleep apnea. Defer to nephrology on timing of intervention for dialysis. TIME: 35 minutes critical care time spent addressing patient's shock, respiratory insufficiency, review of all data and collaboration with care team HPI Consult Data Date of Consult: 04/05/23 HPI Narrative Reason for Consultation: Shock HPI Narrative: APRIL ORDONEZ is a 77 F, with past medical history listed below, who presents to [facility] on 04/05/2023 secondary to hypotension associated with dialysis. Patient reportedly lives in [place] and has been on a decline over the last month. Patient reportedly is on a pur?ed diet, but is starting to have difficulty with p.o. intake secondary to decline in weakness. Patient reportedly had not been able to finish her hemodialysis sessions for the last week secondary to hypotension patient had been treated for pneumonia with amoxicillin recently. Patient does have a history of a stroke and is chronically aphasic, so the majority of the information was obtained from the medical record. In the ER, patient was afebrile, noted to have a blood pressure of 85/46. Patient was saturating well on 2 L nasal cannula and had no fever. Patient did have a documented tachypnea of 20 breaths/min. Laboratory data showed a white blood cell count of 17.1, hemoglobin of 7.2 and platelets of 138. Patient's INR was 2 and chemistries show a bicarbonate of 33, creatinine of 2.29 and a glucose of 58. Lactate was 1.6. Liver enzymes are slightly elevated and albumin was low at 1. A UA shows WBCs with leukocyte Estrace and negative nitrites. Chest x-ray was obtained showing a small left pleural effusion and a new left upper lobe infiltrate. Given hypotension, patient did have a femoral triple-lumen placed to allow for pressor agents. Since being in the intensive care unit, patient has been requiring pressors to maintain adequate blood pressure. Patient is not reporting any dyspnea, but does have pain with any palpation, especially of the lower extremities and abdomen. Patient can follow simple commands with prompting. Unable to obtain review of systems secondary to patient's aphasia. [facility] Medical History AAA (abdominal aortic aneurysm) Anxiety and depression Aphasia Aphasia as late effect of cerebrovascular accident Atrial fibrillation Diabetes ESRD (end stage renal disease) on dialysis GERD (gastroesophageal reflux disease) History of CVA (cerebrovascular accident) Obesity Other lack of coordination Type 2 diabetes mellitus with hypoglycemia without coma Home Medications aspirin 81 mg tablet,delayed release (Adult Low Dose Aspirin) 81 mg PO DAILY heart health 03/26/23 [History Last Taken 04/04/23] atorvastatin 40 mg tablet 40 mg PO QHS cholesterol 03/26/23 [History Last Taken 04/04/23] cyclobenzaprine 5 mg tablet 5 mg PO BID PRN muscle spasms 03/26/23 [History Last Taken 04/03/23] docusate sodium 100 mg capsule (Colace) 100 mg PO BID constipation 03/26/23 [History Last Taken 04/04/23] gabapentin 100 mg capsule 100 mg PO QHS neuropathy 03/26/23 [History Last Taken 04/04/23] insulin glargine 100 unit/mL (3 mL) subcutaneous pen (Lantus Solostar U-100 Insulin) 10 unit subcut QHS diabetes 03/26/23 [History Last Taken 04/04/23] magnesium hydroxide 400 mg/5 mL oral suspension (Milk of Magnesia) 15 ml PO QHS constipation 03/26/23 [History Last Taken 04/03/23] melatonin 3 mg tablet 9 mg PO QHS insomnia 03/26/23 [History Last Taken 04/04/23] metoclopramide HCl 5 mg tablet 5 mg PO Q8H PRN nausea/vomiting 03/26/23 [History Last Taken 04/03/23] metoprolol tartrate 25 mg tablet 12.5 mg PO Q12H blood pressure 03/26/23 [History Last Taken 04/04/23] midodrine 10 mg tablet 10 mg PO TID blood pressure 03/26/23 [History Last Taken 04/04/23] nitroglycerin 0.4 mg sublingual tablet 0.4 mg sublingual Q5M PRN chest pain 03/26/23 [History Last Taken Unknown] pantoprazole 40 mg tablet,delayed release 40 mg PO DAILY acid reflux 03/26/23 [History Last Taken 04/04/23] sertraline 25 mg tablet 25 mg PO DAILY depression 03/26/23 [History Last Taken 04/04/23] vitamin B complex-folic acid 50 mcg tablet 1 tab PO DAILY supplement 03/26/23 [History Last Taken 04/04/23] acetaminophen 325 mg tablet 650 mg (2 x 325 mg) PO Q4H PRN PRN Fever, pain 1-10/10 #0 tabs 03/29/23 [Rx Last Taken 04/04/23] albuterol sulfate 2.5 mg/3 mL (0.083 %) solution for nebulization 2.5 mg (3 mL) inhalation Q2H PRN PRN Dyspnea, wheezing #0 mL 03/29/23 [Rx Last Taken 04/04/23] aluminum-mag hydroxide-simethicone 400 mg-400 mg-40 mg/5 mL oral susp (Mag-Al Plus Extra Strength) 30 ml PO Q6H PRN PRN Gastric Burning #0 mL 03/29/23 [Rx Last Taken Unknown] amoxicillin 875 mg-potassium clavulanate 125 mg tablet 1 tab PO BID #14 tabs 03/29/23 [Rx Last Taken 04/04/23] insulin lispro 100 unit/mL subcutaneous pen (Humalog KwikPen (U-100) Insulin) See Protocol subcut ACHS DM #0 mL 03/29/23 [Rx Last Taken 04/04/23] menthol 0.44 %-zinc oxide 20.6 % topical ointment (Calmoseptine) 1 applic topical 4X/DAY #0 grams 03/29/23 [Rx Last Taken 04/04/23] guaifenesin 100 mg/5 mL oral liquid 200 mg PO Q4H PRN COUGH AND CONGESTION 04/05/23 [History Last Taken 03/31/23] nutritional supplements 240 ml PO BID SUPPLEMENT 04/05/23 [History Last Taken 04/04/23] nystatin 100,000 unit/mL oral suspension 6 ml PO 4X/DAY THRUSH 04/05/23 [History Last Taken 04/04/23] potassium chloride 20 mEq tablet,extended release(part/cryst) (Klor-Con M) 40 meq PO X1 POTASSIUM 04/05/23 [History Last Taken Unknown] Allergy/AdvReac Type Severity Reaction Status Date / Time codeine Allergy Mild PT UNABLE Verified 04/05/23 08:19 TO RESPOND-NEEDS F/U hydrocodone Allergy Mild PT UNABLE Verified 04/05/23 08:19 TO RESPOND-NEEDS F/U tramadol Allergy Mild PT UNABLE Verified 04/05/23 08:19 TO RESPOND-NEEDS F/U Family History Mother Cancer Hypertension Father History of GI bleed Surgical History History of bilateral knee replacement History of foot surgery History of tonsillectomy and adenoidectomy Hx of appendectomy Status post left breast lumpectomy Social History household members: none housing: detention Smoking Status: Former smoker alcohol intake: never substance use type: does not use ROS ROS Narrative Unable to obtain secondary to aphasia Physical Exam Const Constitutional Narrative: Awake. Follows commands. Mumbles incoherently some words. Very tearful with any palpation. Morbidly obese. HEENT normocephalic and head/scalp atraumatic HEENT Narrative: Crowded posterior pharynx Eyes no scleral icterus Eyes Narrative: Glasses. Neck supple Neck Narrative: Unable to assess JVD secondary to body habitus. Tunneled HD cath is palpable and nontender Chest Chest Narrative: Right chest port noted Resp Resp Narrative: Fair effort with exam Auscultation: diminished lung sounds; Negative for rales, rhonchi or wheezes Cardio regular rate, regular rhythm, S1 normal heart sound, S2 normal heart sound, no murmurs, no rub and no gallops GI normal to inspection, nondistended, normoactive bowel sounds, soft to palpation and non-distended Palpation: tender Extremity General Extremity: edema; Negative for clubbing Skin Skin Narrative: Dermal atrophy noted Neuro moves all extremities Psych Mood & Affect: anxious and labile affect Medical Records Data Attestation: I reviewed the patient's medical records (custodial records were received.) Lab / Micro Data Attestation: I reviewed the patient's lab results. 04/05/23 08:30 04/05/23 08:30 Labs: Laboratory Results - last 24 hr 04/05/23 08:30: WBC 17.1 H, RBC 2.30 L, Hgb 7.2 L, Hct 22.3 L, MCV 97.0, MCH 31.3, MCHC 32.3, RDW Std Deviation 58.3 H, RDW Coeff of Nathaniel 16.8 H, Plt Count 138 L, MPV 10.8, Immature Gran % (Auto) 1.500 H, Neut % (Auto) 79.0 H, Lymph % (Auto) 14.3 L, [place] % (Auto) 4.9, Eos % (Auto) 0.1, Baso % (Auto) 0.2, Absolute Neuts (auto) 13.5 H, Absolute Lymphs (auto) 2.45, Nucleated RBC % 0.1, PT 22.7 H, INR 2.0, APTT 49.0 H, Sodium 135 L, Potassium 3.5, Chloride 100, Carbon Dioxide 33.0 H, Anion Gap 2 L, BUN 15, Creatinine 2.29 H, Estim Creat Clear Calc 16.27, Est GFR (MDRD) Af Amer 27 L, Est GFR (MDRD) Non-Af 22 L, BUN/Creatinine Ratio 6.6 L, Glucose 58 L, Lactic Acid 1.6, Calcium 7.2 L, Total Bilirubin 0.20, AST 127 H, ALT 74 H, Alkaline Phosphatase 172 H, Troponin I High Sens 26, Total Protein 4.9 L, Albumin 1.0 L, Globulin 3.9, Albumin/Globulin Ratio 0.3 L 04/05/23 08:36: Blood Type A POSITIVE, Antibody Screen NEGATIVE, Crossmatch See Detail 04/05/23 08:45: Urine Color Inez, Urine Clarity Sl. Cloudy, Urine pH 5.0, Ur Specific [place] 1.015, Urine Protein 100 H, Urine Glucose (UA) Normal, Urine Ketones 5 H, Urine Occult Blood 50 H, Urine Nitrite Negative, Urine Bilirubin 1 H, Urine Urobilinogen 1 H, Ur Leukocyte Esterase 500 H, Urine RBC 0 SEEN, Urine WBC >100 SEEN, Ur Squamous Epith Cells 0-5 SEEN, Urine Bacteria RARE, Hyaline Casts 0-5 SEEN, Urine Mucus 0 SEEN Micro: Microbiology 04/05/23 08:45 Urine Catheter - [place] Legionella Antigen - Final 04/05/23 08:45 Urine Catheter - [place] Streptococcus pneumoniae Antigen (M - Final 04/05/23 08:30 Nasal Secretion SARS-CoV-2 Antigen (Rapid) - Final SARS-CoV-2 (COVID 19) ABG Data ABG results: ABG 04/05/23 09:51 Specimen Type ART Sample Site L Radial pH 7.54 H Bicarbonate Actual 30.6 H Total CO2 32 Base Excess 8 H O2 Saturation 96 ABG pCO2 36.2 ABG pO2 74 L Toan Test Positive O2 Delivery Device Room Air Vent Mode Not entered Attestation: I personally reviewed and interpreted this ABG as follows: (Partially compensated chronic metabolic acidosis with increased AA gradient) Rhythm Strip Rhythm Strip: Sinus Rhythm Rate: 90 Ectopy: None Radiology Impression Chest X-Ray 04/05/23 09:43 IMPRESSION: Persistent left lower lobe infiltrate with small left pleural effusion. New left upper lobe infiltrate. Electronically Signed: Baltazar Brito MD at 10:12 EDT , Charges/Coding Procedures Hospitalists Procedures: [id number]
[2023-04-05 14:36] LABS: Lactic Acid 1.5 mmol/L (0.4-1.9)
[2023-04-05] MEDS: TITRATION PARAMETER CHANGE 1 EACH IV (16:52)
[2023-04-05] MEDS: Menthol/Lanolin/Calamine/Znox 113 GM Tube 1 APPLIC TOPICAL ×2 (16:53→21:02)
[2023-04-05] MEDS: Miconazole Nitrate 43 GM Bottle 1 APPLIC TOPICAL ×2 (16:53→21:02)
[2023-04-05] MEDS: Midodrine HCl 5 MG Tablet 10 MG PO ×2 (16:54→21:04)
[2023-04-05] MEDS: dexAMETHasone 10 MG/ML Vial 6 MG IV (16:54)
[2023-04-05] MEDS: Heparin 10,000 UNITS/10 ML Vial 2500 UNITS IV (17:33)
[2023-04-05 19:28] LABS: Bedside Glucose 72 mg/dL (74-106)
[2023-04-05] MEDS: Piperacil/Tazobactam 3.375 GM in 0.9% Normal Saline (50mL MB+) 50 ML IV (21:04)
[2023-04-05] MEDS: Metoprolol Tartrate 25 MG Tablet 12.5 MG PO (21:05)
[2023-04-05 21:33] LABS: Bedside Glucose 86 mg/dL (74-106)
[2023-04-06] VITALS (37 sets, daily range): BP systolic 82–128; BP diastolic 50–91; PULSE 55–83; RESP 14–25; TEMP 36.2–37.1; O2SAT 92–99; BMI 46.5
[2023-04-06 04:12] LABS: Absolute Lymphocyte Count 1.19 X10^3/uL (0.83-4.51); Absolute Neutrophil Count 11.1 X10^3/uL (2.0-7.7); Basophil# 0.01 X10^3/uL; Basophil% 0.1 % (0-1); Hematocrit 30.4 % (37-47); Hemoglobin 9.7 g/dL (12.0-15.0); Lymphocyte # 1.19 X10^3/ul (0.83-4.51); Lymphocyte % 9.3 % (19-41); Mean Corp Hgb Conc 31.9 g/dL (32-36); Mean Corpuscular Hgb 29.9 pg (27.0-32.0); Mean Corpuscular Volume 93.8 fL (81-99); Mean Platelet Vol. 10.6 fl (6.2-12.0); Monocyte# 0.34 X10^3/uL; Monocyte% 2.7 % (0-10); NRBC Flagged by Analyzer 0.2 % (0-5); Neutrophil # 11.07 X10^3/uL (2.7-7.7); Platelet Count 173 K/mm3 (150-450); RBC Distribution Width CV 18.3 % (11.6-14.6); RBC Distribution Width SD 60.6 fl (35.1-43.9); Red Blood Count 3.24 M/mm3 (4.2-5.4); White Blood Count 12.7 K/mm3 (4.4-11.0)
[2023-04-06 04:20] LABS: International Normalized Ratio 1.8; Prothrombin Time (Protime)PT. 20.6 SECONDS (11.7-14.9)
[2023-04-06 04:25] LABS: Anion Gap 6 (5-15); BUN 19 mg/dL (7-18); Chloride 102 mmol/L (98-107); Creatinine, Serum 2.37 mg/dL (0.55-1.02); EST Glomerular Filtration Rate 21 mL/min (>60); Est Glom Filt Rate - Afr Amer 26 mL/min (>60); Glucose 116 mg/dL (74-106); Potassium 3.6 mmol/L (3.5-5.1); Sodium Level 137 mmol/L (136-145)
[2023-04-06] MEDS: Miconazole Nitrate 43 GM Bottle 1 APPLIC TOPICAL ×3 (06:10→21:22)
--- NOTE | 2023-04-06 07:00 | PCM.PN.INT ---
Assessment & Plan Assessment/Plan (1) Pneumonia: QUALIFIERS: Pneumonia type: due to unspecified organism Laterality: left Lung location: lower lobe of lung Qualified Code(s): J18.9 - Pneumonia, unspecified organism (2) Septic shock: (3) Hypoalbuminemia: (4) ESRD (end stage renal disease) on dialysis: PLAN: Plan RECOMMENDATIONS: 1. Continue antibiotics pending cultures 2. P.o. diet per speech recommendations 3. Continue Decadron (day 2 of 10) 4. Continue increased glargine given need for Decadron 5. Wean oxygen as tolerated IMPRESSIONS: 1. Septic shock secondary to UTI versus pneumonia Patient does have a significant infiltrate on chest x-ray. Patient also has an associated effusion. Unclear if effusion is secondary to a transudate nature such as renal failure and hypoalbuminemia versus parapneumonic effusion. Patient is on broad-spectrum antibiotics. Patient is also been diagnosed with COVID-19, but this is likely not accounting for patient's hypotension. Patient does have a chronic indwelling hemodialysis catheter, but this appears well clinically. Continue broad-spectrum antibiotics pending cultures. We will continue with midodrine. Patient's cortisol level appears to be appropriate, but will continue Decadron given COVID-19 2. Acute hypoxic respiratory insufficiency Patient is requiring nasal cannula oxygen at this time. It is unclear on onset of COVID-19, but this may be adding to patient's overall condition. Patient does have a habitus consistent with possible sleep apnea. May need to initiate BiPAP with sleep. Patient also has a history of stroke, which also increases her risk for sleep apnea complications. At a minimum, outpatient evaluation with sleep apnea would be appropriate. 3. ESRD/DM2/CVA/dysphagia/morbid obesity/advanced age/aphasia Complicates care, management, recovery and prognosis. Will continue increased basal insulin given need for steroids. As mentioned previously, will need to watch for complications of sleep apnea. Defer to nephrology on timing of intervention for dialysis. TIME: 32 minutes critical care time spent addressing patient's shock, respiratory insufficiency, review of all data and collaboration with care team Subjective Subjective Patient did okay overnight. Patient remains on Levophed to maintain blood pressures. No active bleeding has been reported. Objective Data Objective Data Vital Signs: Vital Signs Temp Pulse Resp BP Pulse Ox O2 Del Method O2 Flow Rate 36.6 C 68 19 H 111/57 L 98 Nasal Cannula 2 04/06/23 06:00 04/06/23 06:00 04/06/23 06:00 04/06/23 06:45 04/06/23 06:00 04/06/23 06:00 04/06/23 06:00 Oxygen Flow Rate (L/min) 2 Oxygen Delivery Method Nasal Cannula Weight: 114.8 kg Body Mass Index (BMI) 46.5 Intake & Output: Intake and Output for Last 24 Hours 04/04/23 04/05/23 04/06/23 23:59 23:59 23:59 Intake Total 1640.87 / 1648.37 106.7 / 106.7 Output Total 200 / 250 105 / 105 Balance 1440.87 / 1398.37 1.7 / 1.7 Lab / Micro Data Attestation: I reviewed the patient's lab results. 04/06/23 04:00 04/06/23 04:00 Labs: Laboratory Results - last 24 hr 04/05/23 08:30: WBC 17.1 H, RBC 2.30 L, Hgb 7.2 L, Hct 22.3 L, MCV 97.0, MCH 31.3, MCHC 32.3, RDW Std Deviation 58.3 H, RDW Coeff of Nathaniel 16.8 H, Plt Count 138 L, MPV 10.8, Immature Gran % (Auto) 1.500 H, Neut % (Auto) 79.0 H, Lymph % (Auto) 14.3 L, [place] % (Auto) 4.9, Eos % (Auto) 0.1, Baso % (Auto) 0.2, Absolute Neuts (auto) 13.5 H, Absolute Lymphs (auto) 2.45, Nucleated RBC % 0.1, PT 22.7 H, INR 2.0, APTT 49.0 H, Sodium 135 L, Potassium 3.5, Chloride 100, Carbon Dioxide 33.0 H, Anion Gap 2 L, BUN 15, Creatinine 2.29 H, Estim Creat Clear Calc 16.27, Est GFR (MDRD) Af Amer 27 L, Est GFR (MDRD) Non-Af 22 L, BUN/Creatinine Ratio 6.6 L, Glucose 58 L, Lactic Acid 1.6, Calcium 7.2 L, Total Bilirubin 0.20, AST 127 H, ALT 74 H, Alkaline Phosphatase 172 H, Troponin I High Sens 26, Total Protein 4.9 L, Albumin 1.0 L, Globulin 3.9, Albumin/Globulin Ratio 0.3 L 04/05/23 08:36: Blood Type A POSITIVE, Antibody Screen NEGATIVE, Crossmatch See Detail 04/05/23 08:45: Urine Color Inez, Urine Clarity Sl. Cloudy, Urine pH 5.0, Ur Specific [place] 1.015, Urine Protein 100 H, Urine Glucose (UA) Normal, Urine Ketones 5 H, Urine Occult Blood 50 H, Urine Nitrite Negative, Urine Bilirubin 1 H, Urine Urobilinogen 1 H, Ur Leukocyte Esterase 500 H, Urine RBC 0 SEEN, Urine WBC >100 SEEN, Ur Squamous Epith Cells 0-5 SEEN, Urine Bacteria RARE, Hyaline Casts 0-5 SEEN, Urine Mucus 0 SEEN 04/05/23 13:30: Lactic Acid 1.5 04/05/23 15:25: Cortisol 26.30 H 04/05/23 16:50: POC Glucose 72 L 04/05/23 21:00: POC Glucose 86 04/06/23 04:00: WBC 12.7 H, RBC 3.24 L, Hgb 9.7 L, Hct 30.4 L, MCV 93.8, MCH 29.9, MCHC 31.9 L, RDW Std Deviation 60.6 H, RDW Coeff of Nathaniel 18.3 H, Plt Count 173, MPV 10.6, Immature Gran % (Auto) 0.900, Neut % (Auto) 87.0 H, Lymph % (Auto) 9.3 L, Winn % (Auto) 2.7, Eos % (Auto) 0.0, Baso % (Auto) 0.1, Absolute Neuts (auto) 11.1 H, Absolute Lymphs (auto) 1.19, Nucleated RBC % 0.2, PT 20.6 H, INR 1.8, Sodium 137, Potassium 3.6, Chloride 102, Carbon Dioxide 29.0, Anion Gap 6, BUN 19 H, Creatinine 2.37 H, Estim Creat Clear Calc 15.00, Est GFR (MDRD) Af Amer 26 L, Est GFR (MDRD) Non-Af 21 L, BUN/Creatinine Ratio 8.0 L, Glucose 116 H, Calcium 7.0 L Micro: Microbiology 04/05/23 08:45 Urine Catheter - [place] Legionella Antigen - Final 04/05/23 08:45 Urine Catheter - [place] Streptococcus pneumoniae Antigen (M - Final 04/05/23 08:30 Nasal Secretion SARS-CoV-2 Antigen (Rapid) - Final SARS-CoV-2 (COVID 19) ABG Data ABG results: ABG 04/05/23 09:51 Specimen Type ART Sample Site L Radial pH 7.54 H Bicarbonate Actual 30.6 H Total CO2 32 Base Excess 8 H O2 Saturation 96 ABG pCO2 36.2 ABG pO2 74 L Toan Test Positive O2 Delivery Device Room Air Vent Mode Not entered Radiography Diagnostic Testing: Radiology Impression Chest X-Ray 04/05/23 09:43 IMPRESSION: Persistent left lower lobe infiltrate with small left pleural effusion. New left upper lobe infiltrate. Electronically Signed: Baltazar Brito MD at 10:12 EDT , Rhythm Strip Rhythm Strip: Sinus Rhythm Rate: 66 Ectopy: None Physical Exam Const Constitutional Narrative: Resting comfortably on my eval. Follows commands. Mumbles incoherently some words. Appears to be less tender today with palpation. Morbidly obese. HEENT normocephalic and head/scalp atraumatic Eyes no scleral icterus Eyes Narrative: Glasses. Neck supple Neck Narrative: Unable to assess JVD secondary to body habitus. Tunneled HD cath is palpable and nontender Chest Chest Narrative: Right chest port noted Resp Resp Narrative: Fair effort with exam Auscultation: diminished lung sounds; Negative for rales, rhonchi or wheezes Cardio regular rate, regular rhythm, S1 normal heart sound, S2 normal heart sound, no murmurs, no rub and no gallops GI normal to inspection, nondistended, normoactive bowel sounds, soft to palpation and non-distended Palpation: tender Extremity General Extremity: edema; Negative for clubbing Skin Skin Narrative: Dermal atrophy noted Neuro moves all extremities Psych Mood & Affect: anxious and labile affect Charges/Coding Procedures Hospitalists Procedures: 66926 Critial Care 1st Hr
--- NOTE | 2023-04-06 07:02 | PN.HOSP_ITS ---
Subjective Subjective More alert today. More interactive today. Objective Data Objective Data Vital Signs: Vital Signs Temp Pulse Resp BP Pulse Ox O2 Del Method O2 Flow Rate 36.6 C 63 16 107/50 L 97 Nasal Cannula 2 04/06/23 07:00 04/06/23 07:00 04/06/23 07:00 04/06/23 07:00 04/06/23 07:00 04/06/23 07:00 04/06/23 07:00 Oxygen Flow Rate (L/min) 2 Oxygen Delivery Method Nasal Cannula Weight: 114.8 kg Body Mass Index (BMI) 46.5 Intake & Output: Intake and Output for Last 24 Hours 04/04/23 04/05/23 04/06/23 23:59 23:59 23:59 Intake Total 1640.87 / 1648.37 108.1 / 108.1 Output Total 200 / 250 105 / 105 Balance 1440.87 / 1398.37 3.1 / 3.1 Lab / Micro Data 04/06/23 04:00 04/06/23 04:00 Labs: Laboratory Results - last 24 hr 04/05/23 08:30: WBC 17.1 H, RBC 2.30 L, Hgb 7.2 L, Hct 22.3 L, MCV 97.0, MCH 31.3, MCHC 32.3, RDW Std Deviation 58.3 H, RDW Coeff of Nathaniel 16.8 H, Plt Count 138 L, MPV 10.8, Immature Gran % (Auto) 1.500 H, Neut % (Auto) 79.0 H, Lymph % (Auto) 14.3 L, [place] % (Auto) 4.9, Eos % (Auto) 0.1, Baso % (Auto) 0.2, Absolute Neuts (auto) 13.5 H, Absolute Lymphs (auto) 2.45, Nucleated RBC % 0.1, PT 22.7 H , INR 2.0, APTT 49.0 H, Sodium 135 L, Potassium 3.5, Chloride 100, Carbon Dioxide 33.0 H, Anion Gap 2 L, BUN 15, Creatinine 2.29 H, Estim Creat Clear Calc 16.27, Est GFR (MDRD) Af Amer 27 L, Est GFR (MDRD) Non-Af 22 L, BUN/Creatinine Ratio 6.6 L, Glucose 58 L, Lactic Acid 1.6, Calcium 7.2 L, Total Bilirubin 0.20, AST 127 H, ALT 74 H, Alkaline Phosphatase 172 H, Troponin I High Sens 26, Total Protein 4.9 L, Albumin 1.0 L, Globulin 3.9, Albumin/Globulin Ratio 0.3 L 04/05/23 08:36: Blood Type A POSITIVE, Antibody Screen NEGATIVE, Crossmatch See Detail 04/05/23 08:45: Urine Color Inez, Urine Clarity Sl. Cloudy, Urine pH 5.0, Ur Specific [place] 1.015, Urine Protein 100 H, Urine Glucose (UA) Normal, Urine Ketones 5 H, Urine Occult Blood 50 H, Urine Nitrite Negative, Urine Bilirubin 1 H, Urine Urobilinogen 1 H, Ur Leukocyte Esterase 500 H, Urine RBC 0 SEEN, Urine WBC >100 SEEN, Ur Squamous Epith Cells 0-5 SEEN, Urine Bacteria RARE, Hyaline Casts 0-5 SEEN, Urine Mucus 0 SEEN 04/05/23 13:30: Lactic Acid 1.5 04/05/23 15:25: Cortisol 26.30 H 04/05/23 16:50: POC Glucose 72 L 04/05/23 21:00: POC Glucose 86 04/06/23 04:00: WBC 12.7 H, RBC 3.24 L, Hgb 9.7 L, Hct 30.4 L, MCV 93.8, MCH 29.9, MCHC 31.9 L, RDW Std Deviation 60.6 H, RDW Coeff of Nathaniel 18.3 H, Plt Count 173, MPV 10.6, Immature Gran % (Auto) 0.900, Neut % (Auto) 87.0 H, Lymph % (Auto) 9.3 L, [place]ard % (Auto) 2.7, Eos % (Auto) 0.0, Baso % (Auto) 0.1, Absolute Neuts (auto) 11.1 H, Absolute Lymphs (auto) 1.19, Nucleated RBC % 0.2, PT 20.6 H , INR 1.8, Sodium 137, Potassium 3.6, Chloride 102, Carbon Dioxide 29.0, Anion Gap 6, BUN 19 H, Creatinine 2.37 H, Estim Creat Clear Calc 15.00, Est GFR (MDRD) Af Amer 26 L, Est GFR (MDRD) Non-Af 21 L, BUN/Creatinine Ratio 8.0 L, Glucose 116 H, Calcium 7.0 L Micro: Microbiology 04/05/23 08:45 Urine Catheter - [place] Legionella Antigen - Final 04/05/23 08:45 Urine Catheter - [place] Streptococcus pneumoniae Antigen (M - Final 04/05/23 08:30 Nasal Secretion SARS-CoV-2 Antigen (Rapid) - Final SARS-CoV-2 (COVID 19) ABG Data ABG results: ABG 04/05/23 09:51 Specimen Type ART Sample Site L Radial pH 7.54 H Bicarbonate Actual 30.6 H Total CO2 32 Base Excess 8 H O2 Saturation 96 ABG pCO2 36.2 ABG pO2 74 L Toan Test Positive O2 Delivery Device Room Air Vent Mode Not entered Radiography Diagnostic Testing: Radiology Impression Chest X-Ray 04/05/23 09:43 IMPRESSION: Persistent left lower lobe infiltrate with small left pleural effusion. New left upper lobe infiltrate. Electronically Signed: Baltazar Brito MD at 10:12 EDT , Rhythm Strip Rhythm Strip: Sinus Rhythm Rate: 90 Ectopy: None Physical Exam Const Constitutional Narrative: up in bed. speaking more and more coherently. HEENT head/scalp atraumatic and moist oral mucous membranes Resp normal respiratory effort, no retractions, no use of accessory muscles and clear to auscultation bilaterally Cardio regular rate, regular rhythm, S1 normal heart sound and S2 normal heart sound GI normal to inspection, nondistended, normoactive bowel sounds, soft to palpation, non-tender and non-distended Extremity General Extremity: edema bilateral lower extremity Details: mild Neuro Sensorium / Orientation: awake and alert Psych Mood & Affect: anxious Assessment & Plan Assessment/Plan (1) Septic shock: PLAN: 2/2 Pneumonia +/- UTI plus minus COVID-19 Received piperacillin/tazobactam and vancomycin in the emergency room and will continue on the floor. Follow-up cultures Complicated by chronic hypotension. Continue midodrine. [facility] consult (2) Pneumonia: QUALIFIERS: Laterality: left Lung location: lower lobe of lung Pneumonia type: due to unspecified organism Qualified Code(s): J18.9 - Pneumonia, unspecified organism PLAN: Suspected gram-negative Pulmonary toilet Broad-spectrum antibiotics Strep and legionella antigen negative. Check Scx. (3) COVID-19: PLAN: Unclear time of onset. Chronically on oxygen. Isolation for 10 days. On dexamethasone. No remdesivir given ESRD. (4) Anemia: QUALIFIERS: Anemia type: unspecified type Qualified Code(s): D64.9 - Anemia, unspecified PLAN: chronic. improved after 1 unit PRBC monitor PLAN: Plan Chronic conditions: * ESRD: on HD. Consult nephrology for input. * DM2: continue glarigine and SSI * CVA: aphasic. PT OT ST. continue ASA and atorvastatin. * Dysphagia: Chronic. Patient continue with mechanical soft diet. Speech t herapy. VTE prophylaxis: SCDs Code Status: DNRCCA, DNI Charges/Coding Visit Charges Inpatient E&M: 06393 Subs Hosp L2
[2023-04-06] MEDS: 0.9% Normal Saline (250mL Bag) 250 ML 15 ML IV (07:54)
[2023-04-06] MEDS: Pantoprazole Sodium 40 MG Tablet PO (07:54)
[2023-04-06] MEDS: Piperacil/Tazobactam 3.375 GM in 0.9% Normal Saline (50mL MB+) 50 ML IV ×2 (07:54→21:20)
[2023-04-06] MEDS: Sertraline 50 MG Tablet 25 MG PO (07:54)
[2023-04-06] MEDS: Aspirin E.C. 81 MG Tablet PO (07:54)
[2023-04-06] MEDS: Metoprolol Tartrate 25 MG Tablet 12.5 MG PO (07:55)
[2023-04-06] MEDS: Menthol/Lanolin/Calamine/Znox 113 GM Tube 1 APPLIC TOPICAL ×2 (07:56→21:21)
[2023-04-06] MEDS: dexAMETHasone 10 MG/ML Vial 6 MG IV (08:00)
[2023-04-06] MEDS: Midodrine HCl 5 MG Tablet 10 MG PO ×4 (08:04→21:20)
--- NOTE | 2023-04-06 11:11 | CASEMGMT ---
Addendum entered by Stefani Rowe 04/06/23 11:52: Social Work SW received a message back in [employer] that [facility] can take pt back. They also state pt's sister Yoanna is the POA and they will have papers faxed over tomorrow. They have the same phone numbers as this SW, the home number does not work, SW left a message on the cell phone earlier for Yoanna. MEAGHAN Liang Original Note: Social Work SW spoke w/RN, pt is aphasic. As per chart, staff has been speaking w/pt's sister Yoanna. No POA papers in [facility]. SW called Yoanna and left a message for her to return SW call. Pt went to [facility] on 03/29, it appears she went there skilled. SW sent updates via [employer], also requested any POA information and if they have POA papers to fax them to . SW will continue to follow. MEAGHAN Liang
[2023-04-06 11:12] LABS: Bedside Glucose 84 mg/dL (74-106)
[2023-04-06 16:39] LABS: Bedside Glucose 81 mg/dL (74-106)
[2023-04-06 21:44] LABS: Bedside Glucose 72 mg/dL (74-106)
[2023-04-07] VITALS (30 sets, daily range): BP systolic 80–111; BP diastolic 33–82; PULSE 79–111; RESP 14–24; TEMP 36.6–37.2; O2SAT 88–99; BMI 46.9
[2023-04-07] MEDS: 0.9% Normal Saline (250mL Bag) 250 ML 15 ML IV ×2 (04:00→21:25)
[2023-04-07 04:33] LABS: Absolute Lymphocyte Count 1.23 X10^3/uL (0.83-4.51); Absolute Neutrophil Count 8.3 X10^3/uL (2.0-7.7); Basophil# 0.01 X10^3/uL; Basophil% 0.1 % (0-1); Hematocrit 26.3 % (37-47); Hemoglobin 8.5 g/dL (12.0-15.0); Lymphocyte # 1.23 X10^3/ul (0.83-4.51); Lymphocyte % 11.9 % (19-41); Mean Corp Hgb Conc 32.3 g/dL (32-36); Mean Corpuscular Hgb 29.8 pg (27.0-32.0); Mean Corpuscular Volume 92.3 fL (81-99); Monocyte# 0.69 X10^3/uL; Monocyte% 6.7 % (0-10); NRBC Flagged by Analyzer 0.3 % (0-5); Neutrophil % 80.2 % (47-70); Platelet Count 167 K/mm3 (150-450); RBC Distribution Width CV 18.4 % (11.6-14.6); RBC Distribution Width SD 58.4 fl (35.1-43.9); Red Blood Count 2.85 M/mm3 (4.2-5.4); White Blood Count 10.3 K/mm3 (4.4-11.0)
[2023-04-07 04:40] LABS: Anion Gap 9 (5-15); BUN 25 mg/dL (7-18); BUN/Creat Ratio 9.4 RATIO (10-20); Calcium,Total 6.3 mg/dL (8.5-10.1); Chloride 103 mmol/L (98-107); Creatinine, Serum 2.67 mg/dL (0.55-1.02); EST Glomerular Filtration Rate 18 mL/min (>60); Est Glom Filt Rate - Afr Amer 22 mL/min (>60); Estimated Creatinine Clearance 13.32 ml/min; Glucose 77 mg/dL (74-106); Potassium 3.2 mmol/L (3.5-5.1); Sodium Level 139 mmol/L (136-145)
[2023-04-07] MEDS: Miconazole Nitrate 43 GM Bottle 1 APPLIC TOPICAL ×3 (06:25→21:36)
--- NOTE | 2023-04-07 07:01 | PN.HOSP_ITS ---
Subjective Subjective Off pressors. Objective Data Objective Data Vital Signs: Vital Signs Temp Pulse Resp BP Pulse Ox O2 Del Method O2 Flow Rate 36.7 C 84 20 H 90/61 94 Room Air 2 04/07/23 07:00 04/07/23 07:00 04/07/23 07:00 04/07/23 07:00 04/07/23 07:00 04/07/23 07:00 04/06/23 12:00 Oxygen Flow Rate (L/min) 2 Oxygen Delivery Method Room Air Weight: 115.7 kg Body Mass Index (BMI) 46.9 Intake & Output: Intake and Output for Last 24 Hours 04/05/23 04/06/23 04/07/23 23:59 23:59 23:59 Intake Total 1640.87 / 1648.37 389.99 / 389.99 90 / 90 Output Total 200 / 250 145 / 145 100 / 100 Balance 1440.87 / 1398.37 244.99 / 244.99 -10 / -10 Lab / Micro Data 04/07/23 04:05 04/07/23 04:05 Labs: Laboratory Results - last 24 hr 04/06/23 10:54: POC Glucose 84 04/06/23 16:19: POC Glucose 81 04/06/23 21:11: POC Glucose 72 L 04/07/23 04:05: WBC 10.3, RBC 2.85 L, Hgb 8.5 L, Hct 26.3 L, MCV 92.3, MCH 29.8, MCHC 32.3, RDW Std Deviation 58.4 H, RDW Coeff of Nathaniel 18.4 H, Plt Count 167, MPV 11.0, Immature Gran % (Auto) 1.100 H, Neut % (Auto) 80.2 H, Lymph % (Auto) 11.9 L, [place] % (Auto) 6.7, Eos % (Auto) 0.0, Baso % (Auto) 0.1, Absolute Neuts (auto) 8.3 H, Absolute Lymphs (auto) 1.23, Nucleated RBC % 0.3, Sodium 139, Potassium 3.2 L, Chloride 103, Carbon Dioxide 27.0, Anion Gap 9, BUN 25 H, Creatinine 2.67 H, Estim Creat Clear Calc 13.32, Est GFR (MDRD) Af Amer 22 L, Est GFR (MDRD) Non-Af 18 L, BUN/Creatinine Ratio 9.4 L, Glucose 77, Calcium 6.3 L* Micro: Microbiology 04/05/23 08:45 Urine Catheter - [place] Legionella Antigen - Final 04/05/23 08:45 Urine Catheter - [place] Streptococcus pneumoniae Antigen (M - Final 04/05/23 08:30 Nasal Secretion SARS-CoV-2 Antigen (Rapid) - Final SARS-CoV-2 (COVID 19) Rhythm Strip Rhythm Strip: Sinus Rhythm Rate: 90 Ectopy: None Physical Exam Const alert and no apparent distress Constitutional Narrative: non-verbal today. establishes eye contact. HEENT head/scalp atraumatic and moist oral mucous membranes Resp normal respiratory effort, no retractions and no use of accessory muscles Cardio regular rate, regular rhythm, S1 normal heart sound and S2 normal heart sound GI normal to inspection, nondistended, normoactive bowel sounds, soft to palpation and non-tender Extremity General Extremity: edema bilateral lower extremity Details: moderate Neuro Sensorium / Orientation: awake Psych affect normal Assessment & Plan Assessment/Plan (1) Septic shock: PLAN: 2/2 Pneumonia +/- UTI plus minus COVID-19 Received piperacillin/tazobactam and vancomycin in the emergency room and will continue on the floor. Follow-up cultures Complicated by chronic hypotension. Continue midodrine. [facility] signed off. Has been on norepinephrine, off since 1300 on 04/06 UCx GNR, alpha hemolytic organism. (2) Pneumonia: QUALIFIERS: Laterality: left Lung location: lower lobe of lung Pneumonia type: due to unspecified organism Qualified Code(s): J18.9 - Pneumonia, unspecified organism PLAN: Suspected gram-negative Pulmonary toilet Broad-spectrum antibiotics Strep and legionella antigen negative. Check Scx. (3) COVID-19: PLAN: Unclear time of onset. Chronically on oxygen. Isolation for 10 days. On dexamethasone. No remdesivir given ESRD. (4) Anemia: QUALIFIERS: Anemia type: unspecified type Qualified Code(s): D64.9 - Anemia, unspecified PLAN: chronic. improved after 1 unit PRBC monitor PLAN: Plan Chronic conditions: * ESRD: on HD. Consult nephrology for input. * DM2: continue glarigine and SSI * CVA: aphasic. PT OT ST. continue ASA and atorvastatin. * Dysphagia: Chronic. HOLD LIQUIDS, purees only if fully alert, meds crushed in puree. Speech therapy. VTE prophylaxis: SCDs Code Status: DNRCCA, DNI Charges/Coding Visit Charges Inpatient E&M: 46413 Subs Hosp L2
--- NOTE | 2023-04-07 07:04 | PN.CC_ITS ---
Assessment & Plan Assessment/Plan (1) Pneumonia: QUALIFIERS: Pneumonia type: due to unspecified organism Laterality: left Lung location: lower lobe of lung Qualified Code(s): J18.9 - Pneumonia, unspecified organism (2) Septic shock: (3) Hypoalbuminemia: (4) ESRD (end stage renal disease) on dialysis: PLAN: Plan RECOMMENDATIONS: 1. Continue antibiotics pending cultures 2. P.o. diet per speech recommendations 3. Continue Decadron (day 3 of 10) 4. Decrease glargine insulin 5. Hemodynamically stable on room air. Will sign off from a critical care perspective IMPRESSIONS: 1. Septic shock secondary to UTI versus pneumonia Patient does have a significant infiltrate on chest x-ray. Patient also has an associated effusion. Unclear if effusion is secondary to a transudate nature such as renal failure and hypoalbuminemia versus parapneumonic effusion. Patient is on broad-spectrum antibiotics. Patient is also been diagnosed with COVID-19, but this is likely not accounting for patient's hypotension. Patient does have a chronic indwelling hemodialysis catheter, but this appears well clinically. Continue broad-spectrum antibiotics pending cultures. We will continue with midodrine. Patient's blood pressure has improved. Patient will likely need to tolerate hemodialysis before discharge. However patient otherwise is hemodynamically stable on room air. Will sign off from a pulmonary/critical care perspective 2. Acute hypoxic respiratory insufficiency Patient is requiring nasal cannula oxygen at this time. It is unclear on onset of COVID-19, but this may be adding to patient's overall condition. Patient does have a habitus consistent with possible sleep apnea. May need to initiate BiPAP with sleep if patient is agreeable. Patient also has a history of stroke, which also increases her risk for sleep apnea complications. At a minimum, outpatient evaluation with sleep apnea would be appropriate. 3. ESRD/DM2/CVA/dysphagia/morbid obesity/advanced age/aphasia Complicates care, management, recovery and prognosis. Will continue increased basal insulin given need for steroids. As mentioned previously, will need to watch for complications of sleep apnea. Defer to nephrology on timing of intervention for dialysis. Subjective Subjective Patient awake and makes good eye contact. Patient was able to come off of Levophed over the last 24 hours. No nursing concerns were reported. Objective Data Objective Data Vital Signs: Vital Signs Temp Pulse Resp BP Pulse Ox O2 Del Method O2 Flow Rate 36.7 C 84 20 H 90/61 94 Room Air 2 04/07/23 07:00 04/07/23 07:00 04/07/23 07:00 04/07/23 07:00 04/07/23 07:00 04/07/23 07:00 04/06/23 12:00 Oxygen Flow Rate (L/min) 2 Oxygen Delivery Method Room Air Weight: 115.7 kg Body Mass Index (BMI) 46.9 Intake & Output: Intake and Output for Last 24 Hours 04/05/23 04/06/23 04/07/23 23:59 23:59 23:59 Intake Total 1640.87 / 1648.37 389.99 / 389.99 90 / 90 Output Total 200 / 250 145 / 145 100 / 100 Balance 1440.87 / 1398.37 244.99 / 244.99 -10 10 Lab / Micro Data Attestation: I reviewed the patient's lab results. 04/07/23 04:05 04/07/23 04:05 Labs: Laboratory Results - last 24 hr 04/06/23 10:54: POC Glucose 84 04/06/23 16:19: POC Glucose 81 04/06/23 21:11: POC Glucose 72 L 04/07/23 04:05: WBC 10.3, RBC 2.85 L, Hgb 8.5 L, Hct 26.3 L, MCV 92.3, MCH 29.8, MCHC 32.3, RDW Std Deviation 58.4 H, RDW Coeff of Nathaniel 18.4 H, Plt Count 167, MPV 11.0, Immature Gran % (Auto) 1.100 H, Neut % (Auto) 80.2 H, Lymph % (Auto) 11.9 L, [place] % (Auto) 6.7, Eos % (Auto) 0.0, Baso % (Auto) 0.1, Absolute Neuts (auto) 8.3 H, Absolute Lymphs (auto) 1.23, Nucleated RBC % 0.3, Sodium 139, Potassium 3.2 L, Chloride 103, Carbon Dioxide 27.0, Anion Gap 9, BUN 25 H, Creatinine 2.67 H, Estim Creat Clear Calc 13.32, Est GFR (MDRD) Af Amer 22 L, Est GFR (MDRD) Non-Af 18 L, BUN/Creatinine Ratio 9.4 L, Glucose 77, Calcium 6.3 L* Micro: Microbiology 04/05/23 08:45 Urine Catheter - [place] Legionella Antigen - Final 04/05/23 08:45 Urine Catheter - [place] Streptococcus pneumoniae Antigen (M - Final 04/05/23 08:30 Nasal Secretion SARS-CoV-2 Antigen (Rapid) - Final SARS-CoV-2 (COVID 19) Rhythm Strip Rhythm Strip: Sinus Rhythm Rate: 85 Ectopy: None Physical Exam Const Constitutional Narrative: Readily tracking on my eval. Follows some commands. Mumbles incoherently some words. Appears to be less tender today with palpation. Morbidly obese. HEENT normocephalic and head/scalp atraumatic Eyes no scleral icterus Eyes Narrative: Glasses. Neck supple Neck Narrative: Unable to assess JVD secondary to body habitus. Tunneled HD cath is palpable and nontender Chest Chest Narrative: Right chest port noted Resp Resp Narrative: Fair effort with exam Auscultation: diminished lung sounds; Negative for rales, rhonchi or wheezes Cardio regular rate, regular rhythm, S1 normal heart sound, S2 normal heart sound, no murmurs, no rub and no gallops GI normal to inspection, nondistended, normoactive bowel sounds, soft to palpation and non-distended Palpation: tender Extremity General Extremity: edema; Negative for clubbing Neuro moves all extremities Psych Mood & Affect: anxious and labile affect Charges/Coding Visit Charges Inpatient E&M: 33021 Subs Hosp L2
[2023-04-07] MEDS: Aspirin E.C. 81 MG Tablet PO (07:38)
[2023-04-07] MEDS: Midodrine HCl 5 MG Tablet 10 MG PO ×3 (07:39→16:43)
[2023-04-07] MEDS: Pantoprazole Sodium 40 MG Tablet PO (07:43)
[2023-04-07] MEDS: Sertraline 50 MG Tablet 25 MG PO (07:43)
[2023-04-07] MEDS: Menthol/Lanolin/Calamine/Znox 113 GM Tube 1 APPLIC TOPICAL ×2 (07:48→21:36)
[2023-04-07] MEDS: Piperacil/Tazobactam 3.375 GM in 0.9% Normal Saline (50mL MB+) 50 ML IV ×2 (07:52→21:32)
[2023-04-07] MEDS: 0.9% Saline Lock 10 ML Syringe IV ×2 (08:00→21:29)
[2023-04-07] MEDS: Dextrose 50%-Water 25 GM/50 ML DISP.SYRIN IV (08:00)
[2023-04-07] MEDS: dexAMETHasone 10 MG/ML Vial 6 MG IV (08:04)
[2023-04-07 08:28] LABS: Bedside Glucose 59 mg/dL (74-106)
[2023-04-07 09:30] LABS: Bedside Glucose 85 mg/dL (74-106)
[2023-04-07 11:18] LABS: Bedside Glucose 93 mg/dL (74-106)
[2023-04-07] MEDS: Acetaminophen 325 MG Tablet 650 MG PO (12:05)
[2023-04-07 17:09] LABS: Bedside Glucose 105 mg/dL (74-106)
[2023-04-07] MEDS: Insulin Glargine-YFGN 100 UNIT/ML Pen 10 UNIT SC (21:38)
[2023-04-07 22:24] LABS: Bedside Glucose 94 mg/dL (74-106)
[2023-04-08] VITALS (19 sets, daily range): BP systolic 45–128; BP diastolic 29–117; PULSE 85–118; RESP 17–25; TEMP 36.7–36.9; O2SAT 79–94; BMI 45.9
[2023-04-08] MEDS: Miconazole Nitrate 43 GM Bottle 1 APPLIC TOPICAL (05:07)
[2023-04-08] MEDS: 0.9% Saline Lock 10 ML Syringe IV ×2 (06:21→09:35)
[2023-04-08] MEDS: Dextrose 50%-Water 25 GM/50 ML DISP.SYRIN IV (06:22)
[2023-04-08 06:47] LABS: Bedside Glucose 69 mg/dL (74-106)
[2023-04-08 07:06] LABS: Bedside Glucose 87 mg/dL (74-106)
--- NOTE | 2023-04-08 08:24 | NURSING ---
Critical results called to JASWINDER Pierce.
[2023-04-08] MEDS: Piperacil/Tazobactam 3.375 GM in 0.9% Normal Saline (50mL MB+) 50 ML IV (09:29)
[2023-04-08] MEDS: Menthol/Lanolin/Calamine/Znox 113 GM Tube 1 APPLIC TOPICAL (09:32)
[2023-04-08] MEDS: dexAMETHasone 10 MG/ML Vial 6 MG IV (09:34)
--- NOTE | 2023-04-08 09:41 | CASEMGMT ---
Discharge Planning Updates sent to [facility] via [facility]. Snehal Layton, Discharge Planning Asst.
[2023-04-08] MEDS: 0.9% Normal Saline (500mL Bag) 500 ML 999 ML IV (10:54)
--- NOTE | 2023-04-08 11:11 | CON.PCM.RE_ITS ---
Assessment & Plan Assessment/Plan (1) ESRD (end stage renal disease) on dialysis: (2) COVID-19: (3) Pneumonia: QUALIFIERS: Pneumonia type: due to unspecified organism Lat erality: left Lung location: lower lobe of lung Qualified Code(s): J18.9 - Pneumonia, unspecified organism (4) Septic shock: PLAN: Plan This is a 77-year-old female with past medical history significant for ESRD on hemodialysis via tunneled HD catheter, history of CVA with aphasia who was admitted to the hospital for septic shock/pneumonia/UTI. Also positive COVID. She was initially admitted to ICU on pressor support however over weekend blood pressures improved and patient was moved out of ICU to progressive care unit. This morning there has been a change in patient's status, she is nonverbal, not following any commands, remains hypotensive and requiring more O2. At this time patient is not stable for intermittent hemodialysis nor CRRT either. Potassium and acid-base are acceptable. On exam patient is hypervolemic. Chest x-ray on admission showed persistent left lower lobe infiltrate with small left effusion and new left upper lobe infiltrate. Patient is on IV antibiotics. We will hold off on IV Lasix as blood pressure would not support. Midodrine was increased but patient is not taking anything by mouth. She is a DNR CCA with no intubation. Discussed nephrology plan with primary team. Thank you for allowing us participate in the care of Ms. Ordonez. HPI Consult Data Date of Consult: 04/08/23 HPI Narrative HPI Narrative: APRIL ORDONEZ, is a 77 F with past medical story significant for ESRD who is on hemodialysis at [facility] Saturday, Saturday, , Saturday schedule who was sent to the emergency room from the [facility] on 04/05 for evaluation of hypotension. She was admitted to ICU for septic shock secondary to UTI versus pneumonia. Patient was initially started on pressor support howev er blood pressures improved and she was moved out of ICU down to progressive care unit yesterday. Nephrology consulted for hemodialysis needs. Patient last dialyzed partial treatment at longterm on of last week. This morning patient is now alert and oriented. She is not following commands. She is not taking anything by mouth. Patient is currently DNR CCA, no intubation. [facility] Medical History AAA (abdominal aortic aneurysm) Anxiety and depression Aphasia Aphasia as late effect of cerebrovascular accident Atrial fibrillation Diabetes ESRD (end stage renal disease) on dialysis GERD (gastroesophageal reflux disease) History of CVA (cerebrovascular accident) Obesity Other lack of coordination Type 2 diabetes mellitus with hypoglycemia without coma Home Medications aspirin 81 mg tablet,delayed release (Adult Low Dose Aspirin) 81 mg PO DAILY heart health 03/26/23 [History Last Taken 04/04/23] atorvastatin 40 mg tablet 40 mg PO QHS cholesterol 03/26/23 [History Last Taken 04/04/23] cyclobenzaprine 5 mg tablet 5 mg PO BID PRN muscle spasms 03/26/23 [History Last Taken 04/03/23] docusate sodium 100 mg capsule (Colace) 100 mg PO BID constipation 03/26/23 [History Last Taken 04/04/23] gabapentin 100 mg capsule 100 mg PO QHS neuropathy 03/26/23 [History Last Taken 04/04/23] insulin glargine 100 unit/mL (3 mL) subcutaneous pen (Lantus Solostar U-100 Insulin) 10 unit subcut QHS diabetes 03/26/23 [History Last Taken 04/04/23] magnesium hydroxide 400 mg/5 mL oral suspension (Milk of Magnesia) 15 ml PO QHS constipation 03/26/23 [History Last Taken 04/03/23] melatonin 3 mg tablet 9 mg PO QHS insomnia 03/26/23 [History Last Taken 04/04/23] metoclopramide HCl 5 mg tablet 5 mg PO Q8H PRN nausea/vomiting 03/26/23 [History Last Taken 04/03/23] metoprolol tartrate 25 mg tablet 12.5 mg PO Q12H blood pressure 03/26/23 [History Last Taken 04/04/23] midodrine 10 mg tablet 10 mg PO TID blood pressure 03/26/23 [History Last Taken 04/04/23] nitroglycerin 0.4 mg sublingual tablet 0.4 mg sublingual Q5M PRN chest pain 03/08 03/30 [History Last Taken Unknown] pantoprazole 40 mg tablet,delayed release 40 mg PO DAILY acid reflux 03/26/23 [History Last Taken 04/04/23] sertraline 25 mg tablet 25 mg PO DAILY depression 03/26/23 [History Last Taken 04/04/23] vitamin B complex-folic acid 50 mcg tablet 1 tab PO DAILY supplement 03/26/23 [History Last Taken 04/04/23] acetaminophen 325 mg tablet 650 mg (2 x 325 mg) PO Q4H PRN PRN Fever, pain 1- 1010 #0 tabs 03/29/23 [Rx Last Taken 04/04/23] albuterol sulfate 2.5 mg/3 mL (0.083 %) solution for nebulization 2.5 mg (3 mL) inhalation Q2H PRN PRN Dyspnea, wheezing #0 mL 03/29/23 [Rx Last Taken 04/04/23] aluminum-mag hydroxide-simethicone 400 mg-400 mg-40 mg/5 mL oral susp (Mag-Al Plus Extra Strength) 30 ml PO Q6H PRN PRN Gastric Burning #0 mL 03/29/23 [Rx Last Taken Unknown] amoxicillin 875 mg-potassium clavulanate 125 mg tablet 1 tab PO BID #14 tabs 03/29/23 [Rx Last Taken 04/04/23] insulin lispro 100 unit/mL subcutaneous pen (Humalog KwikPen (U-100) Insulin) See Protocol subcut ACHS DM #0 mL 03/29/23 [Rx Last Taken 04/04/23] menthol 0.44 %-zinc oxide 20.6 % topical ointment (Calmoseptine) 1 applic topical 4X/DAY #0 grams 03/29/23 [Rx Last Taken 04/04/23] guaifenesin 100 mg/5 mL oral liquid 200 mg PO Q4H PRN COUGH AND CONGESTION 04/05/23 [History Last Taken 03/31/23] nutritional supplements 240 ml PO BID SUPPLEMENT 04/05/23 [History Last Taken 04/04/23] nystatin 100,000 unit/mL oral suspension 6 ml PO 4X/DAY THRUSH 04/05/23 [History Last Taken 04/04/23] potassium chloride 20 mEq tablet,extended release(part/cryst) (Klor-Con M) 40 meq PO X1 POTASSIUM 04/05/23 [History Last Taken Unknown] Allergy/AdvReac Type Severity Reaction Status Date / Time codeine Allergy Mild PT UNABLE Verified 04/05/23 08:19 TO RESPOND-NEEDS F/U hydrocodone Allergy Mild PT UNABLE Verified 04/05/23 08:19 TO RESPOND-NEEDS F/U tramadol Allergy Mild PT UNABLE Verified 04/05/23 08:19 TO RESPOND-NEEDS F/U Family History Mother Cancer Hypertension Father History of GI bleed Surgical History History of bilateral knee replacement History of foot surgery History of tonsillectomy and adenoidectomy Hx of appendectomy Status post left breast lumpectomy Social History household members: none housing: longterm Smoking Status: Former smoker alcohol intake: never substance use type: does not use ROS ROS Narrative Unable to obtain Physical Exam Narrative Not oriented, not following commands S1, S2, RRR Lung sounds diminished, positive rales and rhonchi Pitting edema bilateral legs and thighs Lab / Micro Data 04/07/23 04:05 04/07/23 04:05 Labs: Laboratory Results - last 24 hr 04/07/23 10:38: POC Glucose 93 04/07/23 15:51: POC Glucose 105 04/07/23 21:12: POC Glucose 94 04/08/23 06:18: POC Glucose 69 L 04/08/23 06:47: POC Glucose 87 Micro: Microbiology 04/05/23 08:45 Urine Catheter - [place] Urine Culture - Preliminary Klebsiella pneumoniae sp pneum Vancomycin Resist. E. faecium 04/05/23 09:15 Blood Culture (Wb) - Other Blood Culture - Preliminary No growth in 48 hours. 04/05/23 08:30 Blood Culture (Wb) - Anticubital Left Blood Culture - Preliminary No growth in 48 hours. Rhythm Strip Rhythm Strip: Sinus Rhythm Rate: 90 Ectopy: None
--- NOTE | 2023-04-08 11:42 | PCM.RX.CS ---
Consult Antibiotic Management Pharmacy has been consulted to manage selected antiobiotic: Vancomycin Type of Intervention Type of Consult: Follow-up Suspected Infection Suspected Infection: Pneumonia Labs Labs: Sodium 139 mmol/L (136-145) 04/07/23 04:05 Potassium 3.2 mmol/L (3.5-5.1) L 04/07/23 04:05 Chloride 103 mmol/L (98-107) 04/07/23 04:05 Carbon Dioxide 27.0 mmol/L (21.0-32.0) 04/07/23 04:05 Anion Gap 9 (5-15) 04/07/23 04:05 BUN 25 mg/dL (7-18) H 04/07/23 04:05 Creatinine 2.67 mg/dL (0.55-1.02) H 04/07/23 04:05 Est GFR (MDRD) Af Amer 22 mL/min (>60) L 04/07/23 04:05 Est GFR (MDRD) Non-Af 18 mL/min (>60) L 04/07/23 04:05 BUN/Creatinine Ratio 9.4 RATIO (10-20) L 04/07/23 04:05 Glucose 77 mg/dL (74-106) 04/07/23 04:05 Microbiology Microbiology: Microbiology 04/05/23 17:30 Blood Culture (Wb) - Other Blood Culture - Preliminary No growth in 48 hours. 04/05/23 08:45 Urine Catheter - [place] Urine Culture - Preliminary Klebsiella pneumoniae sp pneum Vancomycin Resist. E. faecium 04/05/23 09:15 Blood Culture (Wb) - Other Blood Culture - Preliminary No growth in 48 hours. 04/05/23 08:30 Blood Culture (Wb) - Anticubital Left Blood Culture - Preliminary No growth in 48 hours. 04/05/23 08:45 Urine Catheter - [place] Legionella Antigen - Final 04/05/23 08:45 Urine Catheter - [place] Streptococcus pneumoniae Antigen (M - Final 04/05/23 08:30 Nasal Secretion SARS-CoV-2 Antigen (Rapid) - Final SARS-CoV-2 (COVID 19) Goal Trough Goal Trough: 15-20 mcg/mL Pharmacy Plan for Drug Dosing Pharmacy Plan for Drug Dosing: Current Dose: Dose per HD levels. Initial ER dose of 1750mg IV x1 given on 04/05 Number of doses received: 1 (see above) Renal Function: Patient is on Hemodialysis. Verified schedule, asn while here, pt to have HD M/W/F Dose: 750mg IV x1 ordered to be given post-HD today, 04/08/23. Trough: Pre-HD trough ordered for 04/10/23 with AM labs to determine further vancomycin dosing Pharmacy Service will continue to monitor and adjust dosing as required.
--- NOTE | 2023-04-08 12:00 | NURSING ---
This RN spoke to email marketing coordinator Dr. Resendiz & AGA Sanchez. Railway Traction Line Worker determined that patient would not tolerate hemodialysis in current condition. HD orders stopped per physician
[2023-04-08 12:09] LABS: Bedside Glucose 70 mg/dL (74-106)
--- NOTE | 2023-04-08 13:54 | CASEMGMT ---
Patient . ARETHA asked Snehal d/c estate planning counselor to notify [facility]. Joyce Talamantes NURSERY RN JARRED
--- NOTE | 2023-04-08 14:15 | CHAPLAIN ---
Type of Pastoral Visit ___ Initial Visit ___ Follow-up Visit ___ On-call Visit ___ General Patient Visit ___ Spiritual Assessment ___ Family Conference ___ Bereavement ___ Rapid Response ___ Code Blue _x__ Other (describe below) Pastoral Care Referral From ___ Patient ___ Family ___ Nurse ___ Physician ___ Lab Analyst ___ Sales And Marketing Analyst _x__ Other (describe below) Sacrament/Intervention ___ Active listening ___ Anointing ___ Judaism ___ Bereavement ___ Communion ___ [place] ___ ___ Life review ___ Prayer ___ Reconciliation ___ Sacrament of Sick _x__ Supportive presence ___ Wedding ___ Other (describe below) Pastoral Comments While on rounds in [place], the household appliance repairer notified this education general manager of the of this patient that had just occurred; pt is in Covid isolation; no family members are present; offered to RN that this education general manager would be available to family members if they would choose to come in and to have support
--- NOTE | 2023-04-08 16:49 | PCM.DEATH ---
Preliminary Cause of Preliminary Cause of Preliminary Cause of : acute cardiopulmonary arrest due to acute cardiopulmonary arrest due to septic shock from community acquired pneumonia and covid 19 infection. Date of Admission: 04/05/23 Date of : 04/08/23 Principle Diagnosis Problem List: Active and Suspected Problems (Updated 04/06/23 @ 00:12 by Background Daemon) Anemia (Acute) Pneumonia (Acute) COVID-19 (Acute) Septic shock (Acute) Hypoalbuminemia (Acute) Parapneumonic effusion (Acute) Failure of outpatient treatment (Acute) HCAP (healthcare-associated pneumonia) (Acute) Thrombocytopenia (Acute) History of aphasia (Acute) ESRD (end stage renal disease) on dialysis (Acute) Hospital Course Patient is a 77 y/o F with a PMH as outlined who was admitted via the ED on 04/05/2023 with a complaint of hypotension related to dialysis. She had been resident in [facility] and has been in decline for the last month. She had been having difficulty with oral intake and had been on a pureed diet. She couldnt finish her dialysis session the weak before because she had become hypotensive. On admission, she was tachypneic and tachycardic and hypotensive, with BP of 85/46. She was on 2L of oxygen. CXR showed a small left pleural pleural effusion and new left upper lobe infiltrate. She had a femoral triple lumen placed for pressors to help with hemodynamic support. She was started on broad spectrum antibiotics. She had been diagnosed with covid, but it was unclear the time of onset. She was started on dexamethasone, and wasnt given remdesivir due to ESRD. She was also anemic, and was transfused with a unit of PRBCs. Nephrology was consulted. Nephrology decided against dialysis as patient was too weak and frail. Family made patient DNRCCA intially. On 04/08/2023, patient was noted to be hypotensive and very lethargic. She was hypoxic and required increased amounts of oxygen. I spoke to her POA, her sister Yoanna Marie about code status. Her POA decided that they didnt want any aggressive measures as they were aware she was declining, and she didnt want any aggressive measures. Patient was found to be in asystole and pronounced on 04/08/2023 at 1:14pm. Cause of is acute cardiopulmonary arrest due to acute hypoxic respiratory failure due to septic shock from community acquired pneumonia. Visit Charges Inpatient E&M: 96182 Disch Hosp
== END 2023-04-08 15:44 | DRG 871 ==
LOC: ED 11:16 → ICU 11:33 → PCU 04-07 14:28
PROVIDERS: Internal Medicine Critical Care Medicine; Emergency Provider Emergency Medicine; PCP Family Medicine; Visit Provider Student in an Organized Health Care Education/Training Program
DX: A41.9 Sepsis, unspecified organism (principal); U07.1 COVID-19; J96.21 Acute and chronic respiratory failure with hypoxia; J69.0 Pneumonitis due to inhalation of food and vomit; R65.21 Severe sepsis with septic shock; N18.6 End stage renal disease; Z68.42 Body mass index [BMI] 45.0-49.9, adult; R47.01 Aphasia; D63.1 Anemia in chronic kidney disease; D69.6 Thrombocytopenia, unspecified; E11.22 Type 2 diabetes mellitus with diabetic chronic kidney disease; E66.01 Morbid (severe) obesity due to excess calories; Z99.2 Dependence on renal dialysis; Z79.4 Long term (current) use of insulin; I46.9 Cardiac arrest, cause unspecified; E88.09 Other disorders of plasma-protein metabolism, not elsewhere classified; I95.89 Other hypotension; G47.30 Sleep apnea, unspecified; Z87.891 Personal history of nicotine dependence; Z86.73 Personal history of transient ischemic attack (TIA), and cerebral infarction without residual deficits; R13.10 Dysphagia, unspecified; Z66 Do not resuscitate; Z79.82 Long term (current) use of aspirin; Z86.16 Personal history of COVID-19
CPT/HCPCS: 36415; 36600; 71045; 80048; 80053; 81001; 82533; 82803; 82962; 83605; 84484; 85025; 85027; 85610; 85730; 86850; 86900; 86901; 86920; 87040; 87077; 87086; 87088; 87186; 87449; 87811; 92526; 92610; 93005; 94667; 94668; 94762; 97162; 97165; 99285; J7030; J7040; J7050; P9016; A4216